=== PATIENT | male | born 1965 | race Caucasian/White ===

== ENCOUNTER 2016-07-12 13:47 | Emergency (ER) | payer SELFPAY ==
[~2016-07-12] VITALS: Ht 185.4 cm; Wt 89.8 kg
[~2016-07-12 13:47] MED LIST: CEPH500C PO; FLC1T PO; HYDROCODONE; LORA2TAB PO; LORAZEPAM; LRZ1T PO; METH4TAB PO; SULF1TAB38 PO; TEMA30CA6 PO
[2016-07-12 14:30] VITALS: BP 145/96
[2016-07-12 14:51] LABS: BILIRUBIN,URINE NEGATIVE (NEGATIVE); KETONES,URINE NEGATIVE (NEGATIVE); LEUKOCYTE ESTERASE ,URINE NEGATIVE (NEGATIVE); NITRITE,URINE NEGATIVE (NEGATIVE); PH,URINE 6 (5-9); PROTEIN,URINE 1+ (NEGATIVE); UROBILINOGEN,URINE NORMAL (NORMAL)
== END 2016-07-12 15:10 | disposition left against medical advice (07) ==
LOC: EDUNIT# 13:47 → ER 13:50
DX: M54.5 Low back pain (principal); Z53.9 Procedure and treatment not carried out, unspecified reason
CPT/HCPCS: 80306; 81000; 99282

== ENCOUNTER 2016-08-18 22:22 | Emergency (ER) | payer SELFPAY ==
[~2016-08-18] VITALS: Ht 182.9 cm; Wt 89.8 kg
[2016-08-18 22:40] LABS: BASOPHILS # (AUTO) 0.1 10^3/uL (0.0-0.1); BASOPHILS % (AUTO) 1 % (0-10); EOSINOPHILS # (AUTO) 0.1 10^3/uL (0.0-0.3); EOSINOPHILS % (AUTO) 1 % (0-10); LYMPHOCYTES # (AUTO) 3.4 X 10^3 (1.0-4.0); LYMPHOCYTES % (AUTO) 52 % (12-44); MEAN CORPUSCULAR HEMOGLOBIN 31 PG (25-34); MEAN CORPUSCULAR HGB CONC 34 G/DL (32-36); MEAN CORPUSCULAR VOLUME 92 FL (80-99); MONOCYTES # (AUTO) 0.5 X 10^3 (0.0-1.0); MONOCYTES % (AUTO) 8 % (0-12); NEUTROPHILS # (AUTO) 2.5 X 10^3 (1.8-7.8); NEUTROPHILS % (AUTO) 38 % (42-75); PLATELET COUNT 124 10^3/uL (130-400); RED BLOOD COUNT 4.85 10^6/uL (4.35-5.85); RED CELL DISTRIBUTION WIDTH 12.9 % (10.0-14.5); WHITE BLOOD COUNT 6.5 10^3/uL (4.3-11.0)
[2016-08-18 22:50] LABS: BILIRUBIN,URINE NEGATIVE (NEGATIVE); KETONES,URINE NEGATIVE (NEGATIVE); LEUKOCYTE ESTERASE ,URINE NEGATIVE (NEGATIVE); NITRITE,URINE NEGATIVE (NEGATIVE); PH,URINE 7 (5-9); PROTEIN,URINE 1+ (NEGATIVE); UROBILINOGEN,URINE NORMAL (NORMAL)
[2016-08-18 22:57] LABS: SQUAMOUS EPITHELIAL CELL,UR RARE /HPF; WBC,URINE RARE /HPF
[2016-08-18 23:02] LABS: ALANINE AMINOTRANSFERASE 56 U/L (0-55); ALBUMIN 4.4 G/DL (3.2-4.5); AMYLASE 37 U/L (25-125); ANION GAP 17 MMOL/L (5-14); ASPARTATE AMINO TRANSFERASE 75 U/L (5-34); BILIRUBIN,TOTAL 0.5 MG/DL (0.1-1.0); BLOOD UREA NITROGEN 8 MG/DL (7-18); BUN/CREATININE RATIO 9; CARBON DIOXIDE 20 MMOL/L (21-32); CHLORIDE 105 MMOL/L (98-107); CREATININE SERUM 0.93 MG/DL (0.60-1.30); GFR ESTIMATED > 60; GLUCOSE 143 MG/DL (70-105); LIPASE 11 U/L (8-78); POTASSIUM 3.4 MMOL/L (3.6-5.0); SODIUM 142 MMOL/L (135-145); TOTAL PROTEIN 7.7 G/DL (6.4-8.2)
[2016-08-18 23:05] LABS: ALCOHOL 490 MG/DL (<10)
[2016-08-19] MEDS ORDERED: OMEP20TA7 PO (01:09)
--- NOTE | 2016-08-19 01:09 | ED Abdominal Pain ---
General Chief Complaint: Abdominal/GI Problems Stated Complaint: ABD PAIN Nursing Triage Note: PT ARRIVED BY EMS. PT COMPLAINS OF RIGHT UPPER QUADRANT PAIN. PT IS INTOXICATED. Sepsis Screen: No Definite Risk Source of Information: Patient, EMS Exam Limitations: Intoxication History of Present Illness Time Seen By Provider: 22:25 Initial Comments This 50-year-old gentleman presents to the emergency room via EMS with complaints of right upper quadrant pain. He admits to drinking a large amount of alcohol and appears acutely intoxicated. He drinks whenever he can obtain alcohol. This is usually daily. EMS reports oxygen saturation was 91 percent on room air so they applied some O2 by nasal cannula. He reports pain was 10 out of 10 initially. He has no significant tenderness on exam and does not appear in pain at this time. He reports to me "I have to be alone to feel the pain". He reports his right upper quadrant pain is actually chronic but has worsened over the past few days. Patient reportedly has cirrhosis. Allergies and Home Medications Allergies Coded Allergies: NKANo Known Allergies (Unverified Allergy, Mild, 04/20/09) Home Medications Omeprazole 20 Mg Tablet.dr, 20 MG PO DAILY, #30 Prescribed by: FRANCY MICHELLE on 08/19/16 0109 Review of Systems Constitutional: see HPI EENTM: No Symptoms Reported Respiratory: No Symptoms Reported Cardiovascular: No Symptoms Reported Gastrointestinal: See HPI Genitourinary: No Symptoms Reported Musculoskeletal: no symptoms reported Skin: no symptoms reported Psychiatric/Neurological: No Symptoms Reported Endocrine: No Symptoms Reported Past Jsouywz-Ejawph-Xodaqg Hx Patient Social History Alcohol Use: Regular Use Recreational Drug Use: Yes (ETOH) Smoking Status: Never a Smoker 2nd Hand Smoke Exposure: No Recent Foreign Travel: No Contact w/Someone Who Travel: No Recent Infectious Disease Expo: No Recent Hopitalizations: No Immunizations Up To Date Tetanus Booster (TDap): Unknown Date of Influenza Vaccine: Jan 17, 2016 Seasonal Allergies Seasonal Allergies: No Surgeries HX Surgeries: No Respiratory Hx Respiratory Disorders: No Cardiovascular Hx Cardiac Disorders: Yes (UNDIAGNOSED HYPERTENSION) Cardiac Disorders: Hypertension Neurological Hx Neurological Disorders: No Reproductive System Hx Reproductive Disorders: No Genitourinary Hx Genitourinary Disorders: No Gastrointestinal Hx Gastrointestinal Disorders: Yes Gastrointestinal Disorders: Hepatitis, Cirrhosis Musculoskeletal Hx Musculoskeletal Disorders: Yes (rt knee injury; effecting gait) Endocrine Hx Endocrine Disorders: No HEENT HX ENT Disorders: No Cancer Hx Cancer: No Psychosocial Hx Psychiatric Problems: Yes Behavioral Health Disorders: Anxiety Integumentary HX Skin/Integumentary Disorder: No Blood Transfusions Hx Blood Disorders: No Physical Exam Vital Signs VS - Last 72 Hours, by Label 08/18/16 08/19/16 22:22 01:40 Temp 99.0 99.0 Pulse 113 113 Resp 20 20 B/P (MAP) 126/79 Pulse Ox 96 96 O2 Delivery Nasal Cannula Room Air O2 Flow Rate 2.00 2.00 Capillary Refill : Less Than 3 Seconds General Appearance: WD/WN, no apparent distress, other (appears intoxicated) HEENT: PERRL/EOMI, normal ENT inspection, pharynx normal Neck: normal inspection Respiratory: lungs clear, normal breath sounds, no respiratory distress, no accessory muscle use Cardiovascular: regular rate, rhythm, no edema, no murmur Gastrointestinal: normal bowel sounds, soft, tenderness (minimal on the right upper quadrant) Extremities: normal inspection, no pedal edema Back: normal inspection 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, no motor/sensory deficits, alert, normal mood/affect, oriented x 3 Skin: normal color, warm/dry Progress/Results/Core Measures Results/Orders Lab Results Laboratory Tests Test 08/18/16 22:28 08/18/16 22:45 Range/Units White Blood Count 6.5 4.3-11.0 10^3/uL Red Blood Count 4.85 4.35-5.85 10^6/uL Hemoglobin 15.2 13.3-17.7 G/DL Hematocrit 45 40-54 % Mean Corpuscular Volume 92 80-99 FL Mean Corpuscular Hemoglobin 31 25-34 PG Mean Corpuscular Hemoglobin Concent 34 32-36 G/DL Red Cell Distribution Width 12.9 10.0-14.5 % Platelet Count 124 L 130-400 10^3/uL Mean Platelet Volume 9.0 7.4-10.4 FL Neutrophils (%) (Auto) 38 L 42-75 % Lymphocytes (%) (Auto) 52 H 12-44 % Monocytes (%) (Auto) 8 0-12 % Eosinophils (%) (Auto) 1 0-10 % Basophils (%) (Auto) 1 0-10 % Neutrophils # (Auto) 2.5 1.8-7.8 X 10^3 Lymphocytes # (Auto) 3.4 1.0-4.0 X 10^3 Monocytes # (Auto) 0.5 0.0-1.0 X 10^3 Eosinophils # (Auto) 0.1 0.0-0.3 10^3/uL Basophils # (Auto) 0.1 0.0-0.1 10^3/uL Sodium Level 142 135-145 MMOL/L Potassium Level 3.4 L 3.6-5.0 MMOL/L Chloride Level 105 98-107 MMOL/L Carbon Dioxide Level 20 L 21-32 MMOL/L Anion Gap 17 H 5-14 MMOL/L Blood Urea Nitrogen 8 7-18 MG/DL Creatinine 0.93 0.60-1.30 MG/DL Estimat Glomerular Filtration Rate > 60 BUN/Creatinine Ratio 9 Glucose Level 143 H 70-105 MG/DL Calcium Level 9.0 8.5-10.1 MG/DL Total Bilirubin 0.5 0.1-1.0 MG/DL Aspartate Amino Transf (AST/SGOT) 75 H 5-34 U/L Alanine Aminotransferase (ALT/SGPT) 56 H 0-55 U/L Alkaline Phosphatase 64 40-136 U/L Total Protein 7.7 6.4-8.2 G/DL Albumin 4.4 3.2-4.5 G/DL Amylase Level 37 25-125 U/L Lipase 11 8-78 U/L Serum Alcohol 490 *H <10 MG/DL Urine Color YELLOW Urine Clarity CLEAR Urine pH 7 5-9 Urine Specific [place] 1.005 L 1.016-1.022 Urine Protein 1+ H NEGATIVE Urine Glucose (UA) 1+ H NEGATIVE Urine Ketones NEGATIVE NEGATIVE Urine Nitrite NEGATIVE NEGATIVE Urine Bilirubin NEGATIVE NEGATIVE Urine Urobilinogen NORMAL NORMAL MG/DL Urine Leukocyte Esterase NEGATIVE NEGATIVE Urine RBC (Auto) NEGATIVE NEGATIVE Urine RBC NONE /HPF Urine WBC RARE /HPF Urine Squamous Epithelial Cells RARE /HPF Urine Crystals NONE /LPF Urine Bacteria NEGATIVE /HPF Urine Casts NONE /LPF Urine Mucus NEGATIVE /LPF Urine Culture Indicated NO My Orders Orders - FRANCY BOYLE MD Alcohol (08/18/16 22:34) Cbc With Automated Diff (08/18/16 22:34) Comprehensive Metabolic Panel (08/18/16 22:34) Lipase (08/18/16 22:34) Ua Culture If Indicated (08/18/16 22:34) Saline Lock/Iv-Start (08/18/16 22:34) Chest 1 View, Ap/Pa Only (08/18/16 22:34) Amylase (08/18/16 22:34) Us Gallbladder [id number] (08/18/16 22:54) Vital Signs/I&O Vital Sign - Last 12Hours 08/18/16 08/19/16 22:22 01:40 Temp 99.0 99.0 Pulse 113 113 Resp 20 20 B/P (MAP) 126/79 Pulse Ox 96 96 O2 Delivery Nasal Cannula Room Air O2 Flow Rate 2.00 2.00 Blood Pressure Mean: 95 Progress Note : Progress Note Patient received a liter of IV fluids. Right upper quadrant pain improved by the time of dismissal. No particular treatment was provided. Workup was relatively unremarkable including ultrasound of the gallbladder. Patient was dismissed and sent home via taxicab. He was able to demonstrate safe ambulation prior to dismissal. Diagnostic Imaging Diagonstic Imaging: Ultrasound Plain Films/CT/US/NM/MRI: abdomen Comments Gallbladder ultrasound was unremarkable. Discussed with the pilot plant technician and stat rad report reviewed. Departure Impression Impression: Primary Impression: Alcohol intoxication Qualified Codes: F10.929 - Alcohol use, unspecified with intoxication, unspecified Additional Impression: Right upper quadrant pain Disposition: 01 HOME, SELF-CARE Condition: Improved Departure-Patient Inst. Decision time for Depature: 01:06 Referrals: KEVYN URBANO MD (PCP/Family) Primary Care Physician Patient Instructions: Acute Abdomen (Belly Pain), Adult (DC), Alcohol Abuse and Alcoholism (DC) Add. Discharge Instructions: Drink plenty of water. Follow-up with your doctor as soon as possible. Gradually reduce your consumption of alcohol and follow-up with your primary care provider to work on quitting alcohol. Take omeprazole as prescribed. Return to the ER if you have worsening symptoms. All discharge instructions reviewed with patient and/or family. Voiced understanding. Scripts Omeprazole (Omeprazole) 20 Mg Tablet. 20 MG PO DAILY, #30 TAB Prov: FRANCY BOYLE MD 08/19/16 Copy Copies To 1: KEVYN URBANO MD, JOSHUA T MD Aug 19, 2016 01:09
[2016-08-19 01:40] VITALS: BP 126/79
--- NOTE | 2016-08-19 06:32 | Diagnostic Imaging Report ---
PROCEDURE: US Gallbladder. TECHNIQUE: Multiple real-time grayscale images were obtained over the right upper quadrant in various projections. INDICATION: Right flank pain. FINDINGS: The liver is normal in size without focal lesions. There is no biliary duct dilatation. The common bile duct is, however, obscured. There is no cholelithiasis, gallbladder wall thickening or pericholecystic fluid. Pancreas not well-seen due to bowel gas. Right kidney is normal. There is no ascites. IMPRESSION: Unremarkable gallbladder. The common bile duct is obscured as is the pancreas by bowel gas. Dictated by: Dictated on workstation # [id number]
--- NOTE | 2016-08-19 08:47 | Diagnostic Imaging Report ---
INDICATION: Right upper quadrant pain. Comparison made with prior examination from 02/06/16. FINDINGS: The heart size, mediastinal configuration, and pulmonary vascularity are within normal limits. There is no pleural effusion, pneumothorax, or pneumonia. The osseous structures are unremarkable. IMPRESSION: No acute cardiopulmonary abnormality. Dictated by: Dictated on workstation # [id number]
== END 2016-08-19 01:40 | disposition home or self-care (01) ==
LOC: EDUNIT# 22:22 → ER 22:24
DX: R10.11 Right upper quadrant pain (principal); F10.129 Alcohol abuse with intoxication, unspecified
CPT/HCPCS: 36415; 71010; 76705; 80053; 80320; 81000; 82150; 83690; 85025

== ENCOUNTER 2018-01-21 15:18 | Inpatient (IN) | payer SELFPAY ==
[~2018-01-21] VITALS: Ht 188 cm; Wt 90.7 kg
[~2018-01-21 15:18] MED LIST changes: +OMEP20TA7 PO
[2018-01-21] MEDS ORDERED: LACTATED RINGERS 1,000 ML IV ONE ×3 (15:27→15:29)
--- OUTSIDE RECORDS SUMMARY | 2018-01-21 15:28 | XMS REPORT ---
Author Author MELQUIADES HARRIS Organization [facility] Address [address] [place] [address] Care Team Providers Care Lotus Notes Developer Name Role Phone MELQUIADES HARRIS Unavailable PROBLEMS Type Condition ICD9-CM Code PGA42-QV Code Onset Dates Condition Status SNOMED Code Problem Insomnia, unspecified type G47.00 Active [id number] ALLERGIES No Known Allergies ENCOUNTERS Encounter Location Date Diagnosis [facility] [address] [address] Oct, Insomnia, unspecified type G47.00 and Right shoulder pain, unspecified chronicity M25.511 [facility] [address] [address] Jan, [facility] [address] [address] Jan, [facility] [address] [address] Dec, Cirrhosis with alcoholism K70.30 and Anxiety F41.9 [place] [address] [address] Jun, [facility] [address] [address] Jun, [facility] [address] [address] Jun, [facility] [address] [address] July, [facility] [address] [address] Jun, [facility] [address] [place] [address] Mar, [facility] [address] [address] Mar, [facility] [id number] [address] Jan, [facility] [address] [address] Jan, [facility] [address] [address] Dec, [facility] [address] [address] Feb, [facility] [address] [address] Feb, [facility] [address] [address] Jan, [facility] [address] [address] July, [facility] [address] [address] Jun, IMMUNIZATIONS No Known Immunizations SOCIAL HISTORY Never Assessed REASON FOR VISIT Pain (acute)shoulder, PT reports his shoulder has been on/off hurting for the last 3-4 weeks ago. -[facility] [place] PLAN OF CARE Activity Details Follow Up 1 Week Reason: VITAL SIGNS Height 73 in 2017-10-30 Weight 195.5 lbs 2017-10-30 Temperature 98.2 degrees Fahrenheit 2017-10-30 Heart Rate 105 bpm 2017-10-30 Respiratory Rate 20 2017-10-30 Oximetry 98 % 2017-10-30 BMI 25.79 kg/m2 2017-10-30 Blood pressure systolic 138 mmHg 2017-10-30 Blood pressure diastolic 88 mmHg 2017-10-30 MEDICATIONS Medication Instructions Dosage Frequency Start Date End Date Duration Status PredniSONE 20 mg Orally Once a day 2 tablets 24h 05 days Active RESULTS No Results PROCEDURES No Known procedures INSTRUCTIONS MEDICATIONS ADMINISTERED No Known Medications MEDICAL (GENERAL) HISTORY Type Description Date Medical History [facility] Medical History anxiety Hospitalization History detox
[2018-01-21] MEDS ORDERED: ONDANSETRON 4 MG/2 ML (SDV) Z0FRAN ONE (15:29)
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
[2018-01-21] MEDS ORDERED: ONDANSETRON 4 MG/2 ML (SDV) Z0FRAN IV PRN ×3 (15:30→20:15)
[2018-01-21] MEDS ORDERED: PIPERACILLIN SODIUM/TAZOBACTAM 4.5 GM in NS (IVPB) 100 ML IV ONE (15:30)
--- NOTE | 2018-01-21 15:37 | ED GI ---
General Stated Complaint: N/V Source of Information: Patient, EMS Exam Limitations: No Limitations History of Present Illness Date Seen by Provider: Jan 21, 2018 Time Seen by Provider: 15:25 Initial Comments The patient presents to ER by private conveyance with chief complaint that he is having some nausea vomiting without abdominal pain started this morning. He' s not had any fevers or chills sweats chest pain or shortness of breath. He does not have any known medical history. He says he was told by his doctor that he might have some kind of cirrhotic hepatitis but denies a known history of viral hepatitis. He has a long-standing history of drinking alcohol he says about 12 beers today. Today he tried to have 2 beers and vomited them both up. His family is concerned that this is more than just a stomach bug so they called EMS. Patient denies headache, rash, recent camping or drinking from unsafe water sources or travel outside the [facility]. He's never had a test for viral hepatitis. 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 He says he used the meth over a year ago but never shot up always smoked. He has also stopped using marijuana over a year ago. He had one soft stool this morning but no diarrhea or constipation. Allergies and Home Medications Allergies Coded Allergies: NKANo Known Allergies (Unverified Allergy, Mild, 04/20/09) Home Medications Omeprazole 20 Mg Tablet.dr, 20 MG PO DAILY Prescribed by: FRANCY MICHELLE on 08/19/16 0109 Patient Home Medication List Home Medication List Reviewed: Yes Review of Systems Review of Systems Constitutional: No chills, No diaphoresis EENTM: No Blurred Vision, No Double Vision Respiratory: Denies Cough, Denies Shortness of Air Cardiovascular: Denies Chest Pain, Denies Edema Gastrointestinal: Denies Abdomen Distended, Denies Abdominal Pain, Denies Constipated, Denies Diarrhea; Nausea, Poor Fluid Intake, Vomiting Genitourinary: Denies Burning, Denies Discharge Past Mfjvskd-Fopstz-Jmmjtg Hx Patient Social History Alcohol Use: Regular Use Alcohol Beverage of Choice: Beer (12 pack per day), Whiskey (occasional) Recreational Drug Use: No (historically) Drug of Choice: historical use of smoking meth and marijuana over a year ago Smoking Status: Current Everyday Smoker Type Used: Cigarettes 2nd Hand Smoke Exposure: No Recent Hopitalizations: No Immunizations Up To Date Tetanus Booster (TDap): Unknown Date of Influenza Vaccine: Jan 17, 2016 Seasonal Allergies Seasonal Allergies: No Past Medical History Surgeries: No Respiratory: No Cardiac: Yes (UNDIAGNOSED HYPERTENSION) Hypertension Neurological: No Reproductive Disorders: No Gastrointestinal: Yes Hepatitis, Cirrhosis Musculoskeletal: Yes (rt knee injury; effecting gait) Endocrine: No HEENT: No Cancer: No Psychosocial: Yes Anxiety Integumentary: No Blood Disorders: No Physical Exam Vital Signs Vital Signs - First Documented 01/21/18 15:22 Temp 96.0 Pulse 108 Resp 20 B/P (MAP) 162/93 (116) Pulse Ox 98 O2 Delivery Room Air Capillary Refill : Height/Weight/BMI Height: 6'0" Weight: 198lbs. 0.0oz. 89.885287qg; 26.4 BMI Method:Stated General Appearance: mild distress, other (disheveled) HEENT: PERRL/EOMI, normal ENT inspection; No pharynx normal (oropharynx is dry) Respiratory: chest non-tender, lungs clear, normal breath sounds, no respiratory distress, no accessory muscle use Cardiovascular: normal peripheral pulses, regular rate, rhythm, no edema, tachycardia Peripheral Pulses: 2+ Radial Pulses (R), 2+ Radial Pulses (L) Gastrointestinal: normal bowel sounds, non tender, soft, no organomegaly Extremities: normal range of motion, non-tender, normal inspection, normal capillary refill Neurologic/Psychiatric: alert, oriented x 3, other (mild somnolence, difficulty keeping his eyes open while talking.) Skin: normal color, warm/dry Focused Exam Sepsis Stage: Severe Sepsis Possible Source: GI Tract/Intra-Abdominal Lactate Level 01/21/18 15:42: Lactic Acid Level 7.04*H 01/21/18 17:50: Lactic Acid Level 4.14*H Time of Focused Exam: 18:57 Respiratory: Chest Non Tender, Lungs Clear, Normal Breath Sounds, No Accessory Muscle Use, No Respiratory Distress Cardiovascular: Regular Rate, Rhythm, No Edema, Normal Peripheral Pulses Capillary Refill: Less Than 3 Seconds Peripheral Pulses: 2+ Radial Pulses (R), 2+ Radial Pulses (L) Skin: normal color, warm/dry Lactic Acid Level Laboratory Tests Test 01/21/18 15:42 01/21/18 17:50 Lactic Acid Level 7.04 MMOL/L (0.50-2.00) *H 4.14 MMOL/L (0.50-2.00) *H Within 3hrs of presentation: Admin fluids, Admin ABX, Blood cultures prior to ABX's, Focus exam, Lactate level Progress/Results/Core Measures Results/Orders Lab Results Laboratory Tests Test 01/21/18 15:42 01/21/18 16:50 01/21/18 17:50 Range/Units White Blood Count 6.9 4.3-11.0 10^3/uL Red Blood Count 4.71 4.35-5.85 10^6/uL Hemoglobin 14.6 13.3-17.7 G/DL Hematocrit 43 40-54 % Mean Corpuscular Volume 92 80-99 FL Mean Corpuscular Hemoglobin 31 25-34 PG Mean Corpuscular Hemoglobin Concent 34 32-36 G/DL Red Cell Distribution Width 12.9 10.0-14.5 % Platelet Count 100 L 130-400 10^3/uL Mean Platelet Volume 9.3 7.4-10.4 FL Neutrophils (%) (Auto) 86 H 42-75 % Lymphocytes (%) (Auto) 11 L 12-44 % Monocytes (%) (Auto) 3 0-12 % Eosinophils (%) (Auto) 0 0-10 % Basophils (%) (Auto) 0 0-10 % Neutrophils # (Auto) 5.9 1.8-7.8 X 10^3 Lymphocytes # (Auto) 0.8 L 1.0-4.0 X 10^3 Monocytes # (Auto) 0.2 0.0-1.0 X 10^3 Eosinophils # (Auto) 0.0 0.0-0.3 10^3/uL Basophils # (Auto) 0.0 0.0-0.1 10^3/uL Prothrombin Time 13.0 12.2-14.7 SEC INR Comment 1.0 0.8-1.4 Activated Partial Thromboplast Time 24 24-35 SEC Sodium Level 140 135-145 MMOL/L Potassium Level 3.3 L 3.6-5.0 MMOL/L Chloride Level 97 L 98-107 MMOL/L Carbon Dioxide Level 20 L 21-32 MMOL/L Anion Gap 23 H 5-14 MMOL/L Blood Urea Nitrogen 9 7-18 MG/DL Creatinine 0.88 0.60-1.30 MG/DL Estimat Glomerular Filtration Rate > 60 BUN/Creatinine Ratio 10 Glucose Level 144 H 70-105 MG/DL Lactic Acid Level 7.04 *H 4.14 *H 0.50-2.00 MMOL/L Calcium Level 9.9 8.5-10.1 MG/DL Corrected Calcium 8.5-10.1 MG/DL Total Bilirubin 1.3 H 0.1-1.0 MG/DL Aspartate Amino Transf (AST/SGOT) 122 H 5-34 U/L Alanine Aminotransferase (ALT/SGPT) 91 H 0-55 U/L Alkaline Phosphatase 61 40-136 U/L Ammonia 28 11-32 UMOL/L Total Protein 8.4 H 6.4-8.2 GM/DL Albumin 4.7 H 3.2-4.5 GM/DL Urine Color YELLOW Urine Clarity CLEAR Urine pH 8 5-9 Urine Specific [place] 1.015 L 1.016-1.022 Urine Protein 1+ H NEGATIVE Urine Glucose (UA) 2+ H NEGATIVE Urine Ketones 3+ H NEGATIVE Urine Nitrite NEGATIVE NEGATIVE Urine Bilirubin NEGATIVE NEGATIVE Urine Urobilinogen NORMAL NORMAL MG/DL Urine Leukocyte Esterase NEGATIVE NEGATIVE Urine RBC (Auto) NEGATIVE NEGATIVE Urine RBC NONE /HPF Urine WBC NONE /HPF Urine Squamous Epithelial Cells RARE /HPF Urine Crystals NONE /LPF Urine Bacteria NONE /HPF Urine Casts NONE /LPF Urine Mucus NEGATIVE /LPF Urine Culture Indicated NO Serum Alcohol 11 H <10 MG/DL My Orders Orders - MAXINE WEBER Cbc With Automated Diff (01/21/18 15:27) Comprehensive Metabolic Panel (01/21/18 15:27) Blood Culture (01/21/18 15:27) Sputum Culture (01/21/18 15:27) Urinalysis (01/21/18 15:27) Urine Culture (01/21/18 15:27) Protime With Inr (01/21/18 15:27) Partial Thromboplastin Time (01/21/18 15:27) Chest 1 View, Ap/Pa Only (01/21/18 15:27) Saline Lock/Iv-Start (01/21/18 15:27) Saline Lock/Iv-Start (01/21/18 15:27) Vital Signs Adult Sepsis Patie Q15M (01/21/18 15:27) Ondansetron Injection (Zofran Injectio (01/21/18 15:30) O2 (01/21/18 15:27) Remove Rings In Anticipation O (01/21/18 15:27) Lactic Acid Analyzer (01/21/18 15:27) Lactated Ringers (Lr 1000 Ml Iv Solution (01/21/18 15:27) Piperacillin Sodium/Tazobactam (Zosyn Vi (01/21/18 15:30) Saline Lock/Iv-Start (01/21/18 15:27) Lactated Ringers (Lr 1000 Ml Iv Solution (01/21/18 15:27) Ondansetron Injection (Zofran Injectio (01/21/18 15:29) Lactated Ringers (Lr 1000 Ml Iv Solution (01/21/18 15:29) Ammonia (01/21/18 15:37) Saline Lock/Iv-Start (01/21/18 16:21) Ns Iv 1000 Ml (Sodium Chloride 0.9%) (01/21/18 16:21) Ct Abdomen/Pelvis W (01/21/18 16:21) Iohexol Injection (Omnipaque 350 Mg/Ml 1 (01/21/18 17:00) Contrast Received (Contrast Received) (01/21/18 17:00) Ns (Ivpb) (Sodium Chloride 0.9%) (01/21/18 17:00) Lorazepam Injection (Ativan Injection) (01/21/18 17:30) Alcohol (01/21/18 17:22) Medications Given in ED Current Medications Medications Dose Ordered Sig/Nan Route Start Time Stop Time Status Last Admin Dose Admin Iohexol 100 ml ONCE ONCE IV 01/21/18 17:00 01/21/18 17:05 DC 01/21/18 17:30 100 ML Lactated Ringer's 1,000 ml @ 0 mls/hr Q0M ONCE IV 01/21/18 15:27 01/21/18 15:31 DC 01/21/18 15:36 1,000 MLS/HR Lactated Ringer's 1,000 ml @ 0 mls/hr Q0M ONCE IV 01/21/18 15:27 01/21/18 15:31 DC 01/21/18 16:48 1,000 MLS/HR Ondansetron HCl 8 mg PRN PRN IV 01/21/18 15:30 01/21/18 15:37 DC 01/21/18 15:36 8 MG Piperacillin Sod/ Tazobactam Sod 4.5 gm/Sodium Chloride 100 ml @ 200 mls/hr ONCE ONCE IV 01/21/18 15:30 01/21/18 15:59 DC 01/21/18 16:48 200 MLS/HR Sodium Chloride 250 ml ONCE ONCE IV 01/21/18 17:00 01/21/18 17:05 DC 01/21/18 17:31 80 ML Vital Signs/I&O 01/21/18 01/21/18 01/21/18 15:22 15:23 16:50 Temp 96.0 Pulse 108 81 Resp 20 22 B/P (MAP) 162/93 (116) 149/76 Pulse Ox 98 98 O2 Delivery Room Air Room Air Room Air Progress Progress Note #1: Time: 15:36 Progress Note Septic workup this is tachycardic and nausea vomiting suspect GI source. We will use Zosyn, 2 L of fluid which would be greater than 20 mL/kg based on his weight of 198 pounds. Zofran 8 mg. Vomited once in the ER so far. We'll check an ammonia as well as his CMP. Progress Note #2: Time: 16:22 Progress Note Markedly elevated lactate with normal creatinine. Suspect there could be an infectious or ischemic process abdomen. He still has a benign nonsurgical abdomen on examination. We'll going get a CT with contrast since his creatinine 0.8. We have him another liter of saline which would bring him up above 30 mL/ kg. Blood pressure is good in the 160/94 range. The nurse informs me that the lactated Ringer's was not started until after he already drawn the blood cultures and lactic acid. Diagnostic Imaging Diagonstic Imaging: CT (c/c) Plain Films/CT/US/NM/MRI: abdomen, pelvis Comments NAME: PARMINDERAUDRA Olguin [facility] REC#: [id number] PHYSICIAN: MAXINE WEBER MD CC: BRIAN JONAS MD; MAXINE WEBER Page 2 of 2 RADIOLOGY REPORT VIA [facility], [facility]. [place], [place] CC: BRIAN JONAS MD; MAXINE WEBER Page 1 of 2 RADIOLOGY REPORT NAME: AUDRA ZURITA [facility] REC#: [id number] PT STATUS: REG ER : 1965 PHYSICIAN: MAXINE WEBER MD ADMIT DATE: 01/21/18/ER Signed Date of Exam: 01/21/18 CT ABDOMEN/PELVIS W PROCEDURE: CT abdomen and pelvis with contrast. TECHNIQUE: Multiple contiguous axial images were obtained through the abdomen and pelvis after administration of intravenous contrast. INDICATION: Possible detoxing; abdominal pain, nausea, and vomiting starting today. COMPARISON STUDIES: CT of the abdomen and pelvis from 2015. FINDINGS: The lung bases are clear. Fatty metamorphosis of the liver is present with no focal abnormalities. The gallbladder, spleen, pancreas, adrenal glands, and kidneys appear normal. Benign calcifications are present in the prostate gland. Mild thickening of the urinary bladder wall is present. This could be from cystitis or outlet obstruction. Moderate amount of stool is present in the colon. No obstruction is seen. A few diverticula are present without inflammation. The appendix and small bowel loops are normal. There is no ascites, free air, or abnormal adenopathy. Vascular structures are normal. The osseous structures demonstrate mild degenerative changes. No fractures are present. IMPRESSION: 1. There is fatty metamorphosis of the liver. 2. Diverticulosis without inflammation. 3. Possible constipation. 4. There is mild thickening of the urinary bladder guzman, and this could be due to chronic outlet obstruction versus cystitis. Dictated by: Dictated on workstation # [id number] Dict: 01/21/181746 Trans: 01/21/181813 Interpreted by: BRIAN JONAS MD Electronically signed by: BRIAN JONAS MD 01/21/181813 Reviewed: Reviewed by Me Diagonstic Imaging: Xray Plain Films/CT/US/NM/MRI: chest (1v) Comments NAME: ZURITAAUDRA CLEMENTS Clua [facility] REC#: [id number] PHYSICIAN: MAXINE WEBER MD CC: ANGELI LEON MD; MAXINE WEBER Page 1 of 1 RADIOLOGY REPORT VIA [place], [place] CC: ANGELI LEON MD; MAXINE WEBER Page 1 of 1 RADIOLOGY REPORT NAME: AUDRA ZURITA [facility] REC#: [id number] PT STATUS: REG ER : 1965 PHYSICIAN: MAXINE WEBER MD ADMIT DATE: 01/21/18/ER Signed Date of Exam: 01/21/18 CHEST 1 VIEW, AP/PA ONLY INDICATION: Nausea and vomiting. EXAMINATION: Portable chest at 4:12 PM. FINDINGS: The heart size and pulmonary vascularity are normal. The lungs are clear. There are no effusions or pneumothoraces. IMPRESSION: Negative chest. Dictated by: Dictated on workstation # [id number] Dict: 01/21/18 1615 Trans: 01/21/18 1656 Interpreted by: ANGELI LEON MD Electronically signed by: ANGELI LEON MD 01/21/18 1656 Reviewed: Reviewed by Me Departure Communication (Admissions) Time/Spoke to Admitting Phy: 18:45 Discussed case lab imaging findings with Dr. Huertas and she agrees take patient to the unit for alcohol withdrawal, severe sepsis and dehydration and gastroenteritis. Impression Primary Impression: Alcohol withdrawal Qualified Codes: F10.230 - Alcohol dependence with withdrawal, uncomplicated Additional Impressions: Severe sepsis Dehydration Gastroenteritis Electrolyte and fluid disorder Disposition: ADMITTED INPATIENT Condition: Stable Admissions Decision to Admit Reason: Admit from ER (General) Decision to Admit/Date: Jan 21, 2018 Time/Decision to Admit Time: 18:48 Departure-Patient Inst. Referrals: KEVYN URBANO MD (PCP/Family) Primary Care Physician MAXINE WEBER Jan 21, 2018 15:37
[2018-01-21 15:56] LABS: BASOPHILS % (AUTO) 0 % (0-10); EOSINOPHILS % (AUTO) 0 % (0-10); HEMATOCRIT 43 % (40-54); HEMOGLOBIN 14.6 G/DL (13.3-17.7); LYMPHOCYTES # (AUTO) 0.8 X 10^3 (1.0-4.0); LYMPHOCYTES % (AUTO) 11 % (12-44); MEAN CORPUSCULAR HEMOGLOBIN 31 PG (25-34); MEAN CORPUSCULAR HGB CONC 34 G/DL (32-36); MEAN CORPUSCULAR VOLUME 92 FL (80-99); MEAN PLATELET VOLUME 9.3 FL (7.4-10.4); MONOCYTES # (AUTO) 0.2 X 10^3 (0.0-1.0); MONOCYTES % (AUTO) 3 % (0-12); NEUTROPHILS # (AUTO) 5.9 X 10^3 (1.8-7.8); NEUTROPHILS % (AUTO) 86 % (42-75); PLATELET COUNT 100 10^3/uL (130-400); RED BLOOD COUNT 4.71 10^6/uL (4.35-5.85); RED CELL DISTRIBUTION WIDTH 12.9 % (10.0-14.5); WHITE BLOOD COUNT 6.9 10^3/uL (4.3-11.0)
[2018-01-21 16:16] LABS: ALANINE AMINOTRANSFERASE 91 U/L (0-55); ALBUMIN 4.7 GM/DL (3.2-4.5); ALKALINE PHOSPHATASE 61 U/L (40-136); AMMONIA 28 UMOL/L (11-32); BILIRUBIN,TOTAL 1.3 MG/DL (0.1-1.0); BUN/CREATININE RATIO 10; CALCIUM 9.9 MG/DL (8.5-10.1); CARBON DIOXIDE 20 MMOL/L (21-32); CHLORIDE 97 MMOL/L (98-107); CREATININE SERUM 0.88 MG/DL (0.60-1.30); GFR ESTIMATED > 60; GLUCOSE 144 MG/DL (70-105); POTASSIUM 3.3 MMOL/L (3.6-5.0); SODIUM 140 MMOL/L (135-145); TOTAL PROTEIN 8.4 GM/DL (6.4-8.2)
--- NOTE | 2018-01-21 16:18 | Diagnostic Imaging Report ---
INDICATION: Nausea and vomiting. EXAMINATION: Portable chest at 4:12 PM. FINDINGS: The heart size and pulmonary vascularity are normal. The lungs are clear. There are no effusions or pneumothoraces. IMPRESSION: Negative chest. Dictated by: Dictated on workstation # [id number]
[2018-01-21] MEDS ORDERED: NS IV 1000 ML 1,000 ML IV SCH ×2 (16:21→20:19)
[2018-01-21 16:55] LABS: BILIRUBIN,URINE NEGATIVE (NEGATIVE); CLARITY,URINE CLEAR; COLOR,URINE YELLOW; GLUCOSE, URINE (UA) 2+ (NEGATIVE); KETONES,URINE 3+ (NEGATIVE); LEUKOCYTE ESTERASE ,URINE NEGATIVE (NEGATIVE); NITRITE,URINE NEGATIVE (NEGATIVE); PH,URINE 8 (5-9); PROTEIN,URINE 1+ (NEGATIVE); UROBILINOGEN,URINE NORMAL (NORMAL)
[2018-01-21] MEDS ORDERED: RECEIVED CONTRAST (Hold Metformin) IV SCH (17:00)
[2018-01-21] MEDS ORDERED: IOHEXOL 350 MG/ML 100 ML (OMNIPAQUE 350) VIAL IV ONE (17:00)
[2018-01-21] MEDS ORDERED: NS 250 ML (IVPB) BAG IV ONE (17:00)
[2018-01-21 17:02] LABS: SQUAMOUS EPITHELIAL CELL,UR RARE /HPF
[2018-01-21] MEDS ORDERED: LORazepam INJ 2 MG/ML (ATIVAN) VIAL IVP ONE (17:30)
--- NOTE | 2018-01-21 17:55 | Diagnostic Imaging Report ---
PROCEDURE: CT abdomen and pelvis with contrast. TECHNIQUE: Multiple contiguous axial images were obtained through the abdomen and pelvis after administration of intravenous contrast. INDICATION: Possible detoxing; abdominal pain, nausea, and vomiting starting today. COMPARISON STUDIES: CT of the abdomen and pelvis from 2015. FINDINGS: The lung bases are clear. Fatty metamorphosis of the liver is present with no focal abnormalities. The gallbladder, spleen, pancreas, adrenal glands, and kidneys appear normal. Benign calcifications are present in the prostate gland. Mild thickening of the urinary bladder wall is present. This could be from cystitis or outlet obstruction. Moderate amount of stool is present in the colon. No obstruction is seen. A few diverticula are present without inflammation. The appendix and small bowel loops are normal. There is no ascites, free air, or abnormal adenopathy. Vascular structures are normal. The osseous structures demonstrate mild degenerative changes. No fractures are present. IMPRESSION: 1. There is fatty metamorphosis of the liver. 2. Diverticulosis without inflammation. 3. Possible constipation. 4. There is mild thickening of the urinary bladder guzman, and this could be due to chronic outlet obstruction versus cystitis. Dictated by: Dictated on workstation # [id number]
[2018-01-21] MEDS ORDERED: KETOROLAC 30 MG/ML VIAL IVP ONE (19:15)
[2018-01-21 20:00] VITALS: BP_SYST 136; BP_SYST 158; BP_DIAS 75; BP_DIAS 88
[2018-01-21] MEDS ORDERED: NS W/KCL 20 MEQ/L 1,000 ML IV ONE (20:03)
[2018-01-21] MEDS ORDERED: 1/2 NS IV SOLUTION 1,000 ML IV PRN (20:11)
[2018-01-21 20:15] VITALS: BP 136/75
[2018-01-21] MEDS ORDERED: LORazepam INJ 2 MG/ML (ATIVAN) VIAL IM/IV PRN (20:15)
[2018-01-21] MEDS ORDERED: CATHETER FLUSH 10 ML SYR IV PRN (20:15)
[2018-01-21] MEDS ORDERED: [UNRECOGNIZED DRUG - OTHER] IV ONE ×5 (20:15)
[2018-01-21] MEDS ORDERED: ANTACID SUSP 30 ML UDC (MYLANTA) PO PRN (20:15)
[2018-01-21] MEDS ORDERED: FOLIC ACID IV ONE ×5 (20:15)
[2018-01-21] MEDS ORDERED: KETOROLAC 15 MG/ML VIAL IV PRN (20:15)
[2018-01-21] MEDS ORDERED: LORazepam INJ 2 MG/ML (ATIVAN) VIAL IV PRN (20:15)
[2018-01-21] MEDS ORDERED: ONDANSETRON 4 MG (ZOFRAN) ORAL DISSOLVE TAB SL PRN (20:15)
[2018-01-21] MEDS ORDERED: VITAMIN MULTI IV ONE ×5 (20:15)
[2018-01-21] MEDS ORDERED: THIAMINE IV ONE ×5 (20:15)
[2018-01-21] MEDS ORDERED: ACETAMINOPHEN 500 MG TAB (TYLENOL) PO PRN (20:15)
[2018-01-21] MEDS ORDERED: D5 1/2 NS 1000 ML IV SOLUTION 1,000 ML IV PRN (20:15)
[2018-01-21] MEDS ORDERED: SENNA W/DOCUSATE (SENOKOT S) TABLET PO PRN (20:15)
[2018-01-21] MEDS: NOREPINEPHRINE 4 MG in NS (IVPB) 250 ML IV SCH (20:19)
[2018-01-21] MEDS: PIPERACILLIN/TAZO 4.5 GM/NS 100 ML IV SCH ×2 (20:30)
[2018-01-21] MEDS ORDERED: NS IV ONE (20:30)
[2018-01-21 20:45] VITALS: BP 132/81
[2018-01-21 21:00] VITALS: BP 153/81
[2018-01-21] MEDS: FAMOTIDINE 20MG/2ML IV (PEPCID) IV SCH (21:51)
[2018-01-21 22:00] VITALS: BP 129/72
[2018-01-21 23:00] VITALS: BP 110/69
[2018-01-22] VITALS (12 sets, daily range): BP systolic 116–146; BP diastolic 70–99
[2018-01-22 03:53] LABS: BASOPHILS % (AUTO) 0 % (0-10); EOSINOPHILS % (AUTO) 0 % (0-10); HEMATOCRIT 40 % (40-54); HEMOGLOBIN 13.3 G/DL (13.3-17.7); LYMPHOCYTES # (AUTO) 0.9 X 10^3 (1.0-4.0); LYMPHOCYTES % (AUTO) 16 % (12-44); MEAN CORPUSCULAR HEMOGLOBIN 31 PG (25-34); MEAN CORPUSCULAR HGB CONC 33 G/DL (32-36); MEAN CORPUSCULAR VOLUME 93 FL (80-99); MEAN PLATELET VOLUME 10.4 FL (7.4-10.4); MONOCYTES # (AUTO) 0.7 X 10^3 (0.0-1.0); MONOCYTES % (AUTO) 13 % (0-12); NEUTROPHILS # (AUTO) 3.9 X 10^3 (1.8-7.8); NEUTROPHILS % (AUTO) 71 % (42-75); PLATELET COUNT 75 10^3/uL (130-400); RED BLOOD COUNT 4.31 10^6/uL (4.35-5.85); RED CELL DISTRIBUTION WIDTH 12.4 % (10.0-14.5); WHITE BLOOD COUNT 5.5 10^3/uL (4.3-11.0)
[2018-01-22 04:13] LABS: ALANINE AMINOTRANSFERASE 69 U/L (0-55); ALBUMIN 4.1 GM/DL (3.2-4.5); ALKALINE PHOSPHATASE 51 U/L (40-136); BILIRUBIN,TOTAL 1.3 MG/DL (0.1-1.0); BUN/CREATININE RATIO 8; CALCIUM 9.2 MG/DL (8.5-10.1); CARBON DIOXIDE 26 MMOL/L (21-32); CHLORIDE 102 MMOL/L (98-107); CREATININE SERUM 0.85 MG/DL (0.60-1.30); GFR ESTIMATED > 60; GLUCOSE 101 MG/DL (70-105); MAGNESIUM 2.3 MG/DL (1.8-2.4); POTASSIUM 3.3 MMOL/L (3.6-5.0); SODIUM 140 MMOL/L (135-145); TOTAL PROTEIN 7.3 GM/DL (6.4-8.2)
[2018-01-22] MEDS ORDERED: POTASSIUM CL 10MEQ/50ML IVPB 50 ML IV SCH (06:00)
[2018-01-22] MEDS ORDERED: KCL 20 MEQ TAB (K-DUR) PO SCH (06:00)
[2018-01-22] MEDS ORDERED: MAGNESIUM 1 GM/100 ML IVPB 100 ML IV SCH (06:00)
[2018-01-22] MEDS: NS W/KCL 20 MEQ/L 1,000 ML IV SCH ×4 (06:41→16:47)
[2018-01-22] MEDS: PIPERACILLIN/TAZO 4.5 GM/NS 100 ML IV SCH ×6 (06:42→23:55)
[2018-01-22] MEDS: POTASSIUM CL 10MEQ/50ML IVPB 50 ML IV SCH ×4 (06:42→12:59)
[2018-01-22] MEDS ORDERED: FLU QUADRIvalent (5+ YOA) 2018-2019 (AFLURIA) 0.5 ML IM ONE (07:15)
--- NOTE | 2018-01-22 08:21 | Diagnostic Imaging Report ---
INDICATION: Severe sepsis, dehydration and hypokalemia. COMPARISON: 01/21/2018. FINDINGS: Visualized lungs are clear. No pleural effusion or pneumothorax. Heart is normal in size. Normal pulmonary vasculature. IMPRESSION: No acute cardiopulmonary process by portable radiography. Dictated by: Dictated on workstation # [id number]
[2018-01-22] MEDS: NOREPINEPHRINE 4 MG in NS (IVPB) 250 ML IV SCH (08:56)
[2018-01-22] MEDS: LORazepam 1 MG (ATIVAN) TAB PO PRN ×3 (09:23→22:54)
[2018-01-22] MEDS: FAMOTIDINE 20MG/2ML IV (PEPCID) IV SCH ×2 (09:24→21:37)
[2018-01-22] MEDS ORDERED: IBUP-30 PO (09:47)
--- NOTE | 2018-01-22 21:12 | History & Physicial (CHS) ---
HPI History of Present Illness: 52 yo male came to ER after having acute onset of vomiting last night. He has a history of heavy alcohol use and last drink was over 24 hours ago because he vomited when he tried to drink more recently. He denies fever, diarrhea. Date seen by provider: Jan 22, 2018 Time Seen by Provider: 08:00 Attending Physician Froylan Huertas MD PCP To Archibald MD Consult Date of Admission Jan 21, 2018 at 18:45 Home Medications Home Medications Reviewed patient Home Medication Reconciliation performed by pharmacy medication reconciliations sewing pattern layout technician and/or nursing. Patients Allergies have been reviewed. Allergies Coded Allergies: NKANo Known Allergies (Unverified Allergy, Mild, 04/20/09) NIX-Wkytcm-Nbegle Hx Patient Social History Alcohol Use: Occasionally Uses Recreational Drug Use: No Drug of Choice: historical use of smoking meth and marijuana over a year ago Smoking Status: Never a Smoker Type Used: Cigarettes 2nd Hand Smoke Exposure: No Recent Foreign Travel: No Contact w/other who traveled: No Recent Hopitalizations: No Recent Infectious Disease Expo: No Physical Abuse Screen: No Sexual Abuse: No Immunizations Up To Date Tetanus Booster (TDap): Unknown Date of Influenza Vaccine: Jan 17, 2016 Past Medical History Chronic alcohol abuse Insomnia Anxiety Cirrhosis w/ chronic thrombocytopenia PSH: none Family Medical History Significant Family History: No Pertinent Family Hx Review of Systems (CHC) Constitutional: No fever EENTM: nose congestion Respiratory: No cough, No short of breath Cardiovascular: No chest pain Gastrointestinal: see HPI Genitourinary: No dysuria; frequency Skin: no symptoms reported Psychiatric/Neurological: No Symptoms Reported Reviewed Test Results Reviewed Test Results Lab Laboratory Tests Test 01/21/18 15:42 01/21/18 16:50 01/21/18 17:50 01/21/18 20:30 Range/Units White Blood Count 6.9 4.3-11.0 10^3/uL Red Blood Count 4.71 4.35-5.85 10^6/uL Hemoglobin 14.6 13.3-17.7 G/DL Hematocrit 43 40-54 % Mean Corpuscular Volume 92 80-99 FL Mean Corpuscular Hemoglobin 31 25-34 PG Mean Corpuscular Hemoglobin Concent 34 32-36 G/DL Red Cell Distribution Width 12.9 10.0-14.5 % Platelet Count 100 L 130-400 10^3/uL Mean Platelet Volume 9.3 7.4-10.4 FL Neutrophils (%) (Auto) 86 H 42-75 % Lymphocytes (%) (Auto) 11 L 12-44 % Monocytes (%) (Auto) 3 0-12 % Eosinophils (%) (Auto) 0 0-10 % Basophils (%) (Auto) 0 0-10 % Neutrophils # (Auto) 5.9 1.8-7.8 X 10^3 Lymphocytes # (Auto) 0.8 L 1.0-4.0 X 10^3 Monocytes # (Auto) 0.2 0.0-1.0 X 10^3 Eosinophils # (Auto) 0.0 0.0-0.3 10^3/uL Basophils # (Auto) 0.0 0.0-0.1 10^3/uL Prothrombin Time 13.0 12.2-14.7 SEC INR Comment 1.0 0.8-1.4 Activated Partial Thromboplast Time 24 24-35 SEC Sodium Level 140 135-145 MMOL/L Potassium Level 3.3 L 3.6-5.0 MMOL/L Chloride Level 97 L 98-107 MMOL/L Carbon Dioxide Level 20 L 21-32 MMOL/L Anion Gap 23 H 5-14 MMOL/L Blood Urea Nitrogen 9 7-18 MG/DL Creatinine 0.88 0.60-1.30 MG/DL Estimat Glomerular Filtration Rate > 60 BUN/Creatinine Ratio 10 Glucose Level 144 H 70-105 MG/DL Lactic Acid Level 7.04 *H 4.14 *H 1.58 0.50-2.00 MMOL/L Calcium Level 9.9 8.5-10.1 MG/DL Corrected Calcium 8.5-10.1 MG/DL Total Bilirubin 1.3 H 0.1-1.0 MG/DL Aspartate Amino Transf (AST/SGOT) 122 H 5-34 U/L Alanine Aminotransferase (ALT/SGPT) 91 H 0-55 U/L Alkaline Phosphatase 61 40-136 U/L Ammonia 28 11-32 UMOL/L Total Protein 8.4 H 6.4-8.2 GM/DL Albumin 4.7 H 3.2-4.5 GM/DL Urine Color YELLOW Urine Clarity CLEAR Urine pH 8 5-9 Urine Specific [place] 1.015 L 1.016-1.022 Urine Protein 1+ H NEGATIVE Urine Glucose (UA) 2+ H NEGATIVE Urine Ketones 3+ H NEGATIVE Urine Nitrite NEGATIVE NEGATIVE Urine Bilirubin NEGATIVE NEGATIVE Urine Urobilinogen NORMAL NORMAL MG/DL Urine Leukocyte Esterase NEGATIVE NEGATIVE Urine RBC (Auto) NEGATIVE NEGATIVE Urine RBC NONE /HPF Urine WBC NONE /HPF Urine Squamous Epithelial Cells RARE /HPF Urine Crystals NONE /LPF Urine Bacteria NONE /HPF Urine Casts NONE /LPF Urine Mucus NEGATIVE /LPF Urine Culture Indicated NO Serum Alcohol 11 H <10 MG/DL Test 01/22/18 03:00 Range/Units White Blood Count 5.5 4.3-11.0 10^3/uL Red Blood Count 4.31 L 4.35-5.85 10^6/uL Hemoglobin 13.3 13.3-17.7 G/DL Hematocrit 40 40-54 % Mean Corpuscular Volume 93 80-99 FL Mean Corpuscular Hemoglobin 31 25-34 PG Mean Corpuscular Hemoglobin Concent 33 32-36 G/DL Red Cell Distribution Width 12.4 10.0-14.5 % Platelet Count 75 L 130-400 10^3/uL Mean Platelet Volume 10.4 7.4-10.4 FL Neutrophils (%) (Auto) 71 42-75 % Lymphocytes (%) (Auto) 16 12-44 % Monocytes (%) (Auto) 13 H 0-12 % Eosinophils (%) (Auto) 0 0-10 % Basophils (%) (Auto) 0 0-10 % Neutrophils # (Auto) 3.9 1.8-7.8 X 10^3 Lymphocytes # (Auto) 0.9 L 1.0-4.0 X 10^3 Monocytes # (Auto) 0.7 0.0-1.0 X 10^3 Eosinophils # (Auto) 0.0 0.0-0.3 10^3/uL Basophils # (Auto) 0.0 0.0-0.1 10^3/uL Sodium Level 140 135-145 MMOL/L Potassium Level 3.3 L 3.6-5.0 MMOL/L Chloride Level 102 98-107 MMOL/L Carbon Dioxide Level 26 21-32 MMOL/L Anion Gap 12 5-14 MMOL/L Blood Urea Nitrogen 7 7-18 MG/DL Creatinine 0.85 0.60-1.30 MG/DL Estimat Glomerular Filtration Rate > 60 BUN/Creatinine Ratio 8 Glucose Level 101 70-105 MG/DL Calcium Level 9.2 8.5-10.1 MG/DL Corrected Calcium 9.1 8.5-10.1 MG/DL Phosphorus Level 3.0 2.3-4.7 MG/DL Magnesium Level 2.3 1.8-2.4 MG/DL Total Bilirubin 1.3 H 0.1-1.0 MG/DL Aspartate Amino Transf (AST/SGOT) 85 H 5-34 U/L Alanine Aminotransferase (ALT/SGPT) 69 H 0-55 U/L Alkaline Phosphatase 51 40-136 U/L Total Protein 7.3 6.4-8.2 GM/DL Albumin 4.1 3.2-4.5 GM/DL Radiology CXR 01/21: No acute findings CT abd 01/21: IMPRESSION: 1. There is fatty metamorphosis of the liver. 2. Diverticulosis without inflammation. 3. Possible constipation. 4. There is mild thickening of the urinary bladder guzman, and this could be due to chronic outlet obstruction versus cystitis. Physical Exam-(CHC) Physical Exam Vital Signs VS - Last 72 Hours, by Label 01/21/18 01/21/18 01/21/18 01/21/18 15:22 15:23 16:50 18:52 Temp 96.0 98.3 Pulse 108 81 82 Resp 20 22 22 B/P (MAP) 162/93 (116) 149/76 134/76 (95) Pulse Ox 98 98 98 O2 Delivery Room Air Room Air Room Air Room Air 01/21/18 01/21/18 01/21/18 01/21/18 19:00 19:55 20:00 20:00 Temp 99.1 Pulse 98 86 Resp 17 B/P (MAP) 158/88 (111) Pulse Ox 94 94 O2 Delivery Room Air Room Air 01/21/18 01/21/18 01/21/18 01/21/18 20:15 20:30 20:45 21:00 Pulse 89 88 89 75 Resp 21 16 9 44 B/P (MAP) 136/75 (95) 132/81 (98) 153/81 (105) Pulse Ox 97 97 96 94 O2 Delivery Room Air Room Air Room Air Room Air 01/21/18 01/21/18 01/22/18 01/22/18 22:00 23:00 00:00 00:00 Pulse 89 86 82 Resp 14 14 21 B/P (MAP) 129/72 (91) 110/69 (83) 132/88 (103) Pulse Ox 96 95 93 96 O2 Delivery Room Air Room Air Room Air Room Air 01/22/18 01/22/18 01/22/18 01/22/18 00:00 01:00 01:00 02:00 Temp 98.3 Pulse 82 82 87 Resp 25 13 B/P (MAP) 121/71 (88) 116/70 (85) Pulse Ox 97 94 O2 Delivery Room Air Room Air 01/22/18 01/22/18 01/22/18 01/22/18 03:00 04:00 04:00 04:00 Temp 98.8 Pulse 91 74 Resp 15 14 B/P (MAP) 128/72 (90) 141/89 (106) Pulse Ox 95 94 95 O2 Delivery Room Air Room Air Room Air 01/22/18 01/22/18 01/22/18 01/22/18 05:00 06:00 07:00 07:00 Pulse 76 84 82 79 Resp 20 16 12 B/P (MAP) 127/76 (93) 146/93 (110) 136/99 (111) Pulse Ox 95 95 98 O2 Delivery Room Air Room Air Room Air 01/22/18 01/22/18 01/22/18 01/22/18 08:00 08:00 08:00 09:00 Temp 98.0 Pulse 89 96 Resp 16 9 B/P (MAP) 143/92 (109) 117/76 (90) Pulse Ox 98 98 98 O2 Delivery Room Air Room Air Room Air 01/22/18 01/22/18 01/22/18 01/22/18 10:05 12:00 13:00 16:00 Pulse 112 Pulse Ox 98 98 98 O2 Delivery Room Air Room Air Room Air 01/22/18 01/22/18 16:00 19:00 Temp 99.5 Pulse 95 83 Resp 20 B/P (MAP) 146/82 (103) Pulse Ox 98 O2 Delivery Room Air Capillary Refill : Less Than 3 Seconds General Appearance: no apparent distress Respiratory: lungs clear, normal breath sounds Cardiovascular: regular rate, rhythm, no murmur Gastrointestinal: normal bowel sounds, non tender, soft Extremities: no pedal edema Neurologic/Psychiatric: alert Skin: normal color, tattoos/piercings Assessment/Plan Assessment/Plan Admission Status: Inpatient Order (span 2 midnights) Reason for Inpatient Admission: Vomiting with alcohol withdrawal at risk for serious complications. (1) Gastroenteritis Status: Acute Assessment & Plan: Supportive care with IVF, anti-emetics. (2) Severe sepsis Status: Acute Assessment & Plan: With marked lactic acidosis, although no real clear etiology other than suspected viral gastroenteritis. Lactic acidosis resolved with IVF. Zosyn for possible intraabdominal infection. (3) Thrombocytopenia Status: Acute Assessment & Plan: Likely secondary to alcoholic liver disease. Monitor. (4) Alcohol withdrawal Status: Acute Assessment & Plan: CIWA scoring, lorazepam per protocol. manager office services consult. Patient states not wanting to quit currently. Qualifiers: Qualified Codes: F10.230 - Alcohol dependence with withdrawal, uncomplicated (5) Elevated liver enzymes Status: Chronic Assessment & Plan: Check hepatitis panel. CT with fatty liver, history of reported cirrhosis, but he is unsure why this was diagnosed. No history of liver biopsy. (6) High anion gap metabolic acidosis Status: Resolved Assessment & Plan: Secondary to lactic acidosis and possibly alcoholic ketoacidosis. Resolved with IVF. (7) Hypokalemia Status: Acute Assessment & Plan: Replace and recheck. (8) DVT prophylaxis Status: Acute Assessment & Plan: Enoxaparin Clinical Quality Measures DVT/VTE Risk/Contraindication: Risk Factor Score Per Nursin RFS Level Per Nursing on Admit: 4+=Very High FROYLAN HUERTAS MD Jan 22, 2018 21:12
[2018-01-23 00:08] VITALS: BP 133/92
[2018-01-23 00:37] VITALS: BP 138/87
[2018-01-23] MEDS: NS W/KCL 20 MEQ/L 1,000 ML IV SCH ×4 (02:22→11:50)
[2018-01-23 04:00] VITALS: BP 136/88
[2018-01-23 06:00] LABS: BASOPHILS % (AUTO) 0 % (0-10); EOSINOPHILS # (AUTO) 0.2 10^3/uL (0.0-0.3); EOSINOPHILS % (AUTO) 4 % (0-10); HEMATOCRIT 41 % (40-54); HEMOGLOBIN 13.6 G/DL (13.3-17.7); LYMPHOCYTES # (AUTO) 1.3 X 10^3 (1.0-4.0); LYMPHOCYTES % (AUTO) 32 % (12-44); MEAN CORPUSCULAR HEMOGLOBIN 31 PG (25-34); MEAN CORPUSCULAR HGB CONC 33 G/DL (32-36); MEAN CORPUSCULAR VOLUME 95 FL (80-99); MONOCYTES # (AUTO) 0.3 X 10^3 (0.0-1.0); MONOCYTES % (AUTO) 7 % (0-12); NEUTROPHILS # (AUTO) 2.4 X 10^3 (1.8-7.8); NEUTROPHILS % (AUTO) 57 % (42-75); PLATELET COUNT 60 10^3/uL (130-400); RED BLOOD COUNT 4.32 10^6/uL (4.35-5.85); RED CELL DISTRIBUTION WIDTH 12.6 % (10.0-14.5); WHITE BLOOD COUNT 4.1 10^3/uL (4.3-11.0)
[2018-01-23 06:33] LABS: ALANINE AMINOTRANSFERASE 66 U/L (0-55); ALBUMIN 3.9 GM/DL (3.2-4.5); ALKALINE PHOSPHATASE 50 U/L (40-136); BILIRUBIN,TOTAL 1.1 MG/DL (0.1-1.0); BUN/CREATININE RATIO 13; CALCIUM 9.1 MG/DL (8.5-10.1); CARBON DIOXIDE 23 MMOL/L (21-32); CHLORIDE 107 MMOL/L (98-107); CREATININE SERUM 0.93 MG/DL (0.60-1.30); GFR ESTIMATED > 60; GLUCOSE 97 MG/DL (70-105); SODIUM 138 MMOL/L (135-145); TOTAL PROTEIN 6.9 GM/DL (6.4-8.2)
[2018-01-23 06:38] LABS: HEPATITIS C ANTIBODY C Non-Reactive (Non-Reactive)
[2018-01-23] MEDS ORDERED: ENOXAPARIN 40 MG/0.4 ML (LOVENOX) SYR SC SCH (07:00)
[2018-01-23] MEDS: PIPERACILLIN/TAZO 4.5 GM/NS 100 ML IV SCH ×2 (07:14)
[2018-01-23 08:00] VITALS: BP 149/96
[2018-01-23] MEDS: FAMOTIDINE 20MG/2ML IV (PEPCID) IV SCH (09:38)
[2018-01-23] MEDS ORDERED: LEVO750T39 PO (13:25)
--- NOTE | 2018-01-23 13:27 | Discharge Instructions ---
Discharge [facility] Discharge Medications New, Converted or Re-Newed RX: Transmitted to Pharmacy New Medications: Levofloxacin (Levofloxacin) 750 Mg Tablet 750 MG PO DAILY, #7 TAB 0 Refills Discontinued Medications: Ibuprofen (Advil) 200 Mg Tablet 600 MG PO TID PRN for PAIN-MILD, TAB Patient Instructions Goal/Follow Up Appt: Follow up with BLAYNE Hunter at [facility] on Jan 29 at 9:40 am. Return to The Hospital For: Fever, inability to keep down medications Activity & Diet Discharge Diet: Regular Diet Activity as Tolerated: Yes Copy Copies To 1: BLAYNE Hunter BETHANY N MD Jan 23, 2018 1:27 pm
[2018-01-23 13:48] VITALS: BP 149/96
--- NOTE | 2018-01-23 14:30 | Discharge Summary ---
Diagnosis/Chief Complaint Date of Admission Jan 21, 2018 at 6:45 pm Date of Discharge Jan 23, 2018 at 1:51 pm Admission Diagnosis Admission Diagnosis See problem list Discharge Diagnosis See problem list Problems/Diagnosis: (1) Gastroenteritis Assessment & Plan: Supportive care with IVF, anti-emetics. Status: Acute (2) Severe sepsis Assessment & Plan: With marked lactic acidosis, although no real clear etiology other than suspected viral gastroenteritis. Lactic acidosis resolved with IVF. Zosyn for possible intraabdominal infection. Discharged with course of levofloxacin. Status: Acute (3) Thrombocytopenia Assessment & Plan: Likely secondary to alcoholic liver disease. Monitor. Status: Acute (4) Alcohol withdrawal Assessment & Plan: CIWA scoring, lorazepam per protocol. financial services specialist consult. Patient states not wanting to quit currently. Qualifiers: Qualified Codes: F10.230 - Alcohol dependence with withdrawal, uncomplicated Status: Acute (5) Elevated liver enzymes Assessment & Plan: Check hepatitis panel. CT with fatty liver, history of reported cirrhosis, but he is unsure why this was diagnosed. No history of liver biopsy. Hepatitis panel neg. Status: Chronic (6) High anion gap metabolic acidosis Assessment & Plan: Secondary to lactic acidosis and possibly alcoholic ketoacidosis. Resolved with IVF. Status: Resolved Resolution Date/Time: 01/22/18 @ 21:20 (7) Hypokalemia Assessment & Plan: Replaced Status: Acute Chief Complaint/HPI Chief Complaint/HPI 52 yo male came to ER after having acute onset of vomiting last night. He has a history of heavy alcohol use and last drink was over 24 hours ago because he vomited when he tried to drink more recently. He denies fever, diarrhea. Discharge Summary-Simple/Stand Consultations Discharge Physical Examination Allergies: Coded Allergies: NKANo Known Allergies (Unverified Allergy, Mild, 04/20/09) Vitals & I&Os Vital Sign - Last 12Hours Date Time Temp Pulse Resp B/P (MAP) Pulse Ox O2 Delivery O2 Flow Rate FiO2 01/23/18 13:48 84 20 149/96 98 Room Air 01/23/18 08:00 97.7 Intake and Output 01/23/18 00:00 Intake Total 4360 ml Balance 4360 ml General Appearance: Alert, No Acute Distress Respiratory: Clear to Auscultation, Normal Air Movement Cardiovascular: Regular Rate, No Murmurs Psych/Mental Status: Mental Status NL Hospital Course See final discharge diagnosis. Labs Laboratory Tests Test 01/22/18 03:00 01/23/18 05:36 Range/Units White Blood Count 5.5 4.1 L 4.3-11.0 10^3/uL Red Blood Count 4.31 L 4.32 L 4.35-5.85 10^6/uL Hemoglobin 13.3 13.6 13.3-17.7 G/DL Hematocrit 40 41 40-54 % Mean Corpuscular Volume 93 95 80-99 FL Mean Corpuscular Hemoglobin 31 31 25-34 PG Mean Corpuscular Hemoglobin Concent 33 33 32-36 G/DL Red Cell Distribution Width 12.4 12.6 10.0-14.5 % Platelet Count 75 L 60 L 130-400 10^3/uL Mean Platelet Volume 10.4 10.0 7.4-10.4 FL Neutrophils (%) (Auto) 71 57 42-75 % Lymphocytes (%) (Auto) 16 32 12-44 % Monocytes (%) (Auto) 13 H 7 0-12 % Eosinophils (%) (Auto) 0 4 0-10 % Basophils (%) (Auto) 0 0 0-10 % Neutrophils # (Auto) 3.9 2.4 1.8-7.8 X 10^3 Lymphocytes # (Auto) 0.9 L 1.3 1.0-4.0 X 10^3 Monocytes # (Auto) 0.7 0.3 0.0-1.0 X 10^3 Eosinophils # (Auto) 0.0 0.2 0.0-0.3 10^3/uL Basophils # (Auto) 0.0 0.0 0.0-0.1 10^3/uL Sodium Level 140 138 135-145 MMOL/L Potassium Level 3.3 L 4.0 3.6-5.0 MMOL/L Chloride Level 102 107 98-107 MMOL/L Carbon Dioxide Level 26 23 21-32 MMOL/L Anion Gap 12 8 5-14 MMOL/L Blood Urea Nitrogen 7 12 7-18 MG/DL Creatinine 0.85 0.93 0.60-1.30 MG/DL Estimat Glomerular Filtration Rate > 60 > 60 BUN/Creatinine Ratio 8 13 Glucose Level 101 97 70-105 MG/DL Calcium Level 9.2 9.1 8.5-10.1 MG/DL Corrected Calcium 9.1 9.2 8.5-10.1 MG/DL Phosphorus Level 3.0 2.3-4.7 MG/DL Magnesium Level 2.3 1.8-2.4 MG/DL Total Bilirubin 1.3 H 1.1 H 0.1-1.0 MG/DL Aspartate Amino Transf (AST/SGOT) 85 H 81 H 5-34 U/L Alanine Aminotransferase (ALT/SGPT) 69 H 66 H 0-55 U/L Alkaline Phosphatase 51 50 40-136 U/L Total Protein 7.3 6.9 6.4-8.2 GM/DL Albumin 4.1 3.9 3.2-4.5 GM/DL Hepatitis A IgM Antibody Non-Reactive Non-Reactive Hepatitis B Surface Antigen Non-Reactive Non-Reactive Hepatitis B Core IgM Antibody Non-Reactive Non-Reactive Hepatitis C Antibody Non-Reactive Non-Reactive Radiology Reviewed CXR 01/21: No acute findings CT abd 01/21: IMPRESSION: 1. There is fatty metamorphosis of the liver. 2. Diverticulosis without inflammation. 3. Possible constipation. 4. There is mild thickening of the urinary bladder guzman, and this could be due to chronic outlet obstruction versus cystitis. Discharge Instructions to patient/family Please see electronic discharge instructions given to patient. Discharge Medications Reviewed and agree with Discharge Medication list on patient's Discharge Instruction sheet Clinical Quality Measures DVT/VTE Risk/Contraindication: Risk Factor Score Per Nursin RFS Level Per Nursing on Admit: 4+=Very High Copy Copies To 1: BLAYNE Hunter BETHANY N MD Jan 23, 2018 14:30
== END 2018-01-23 13:51 | disposition home or self-care (01) | DRG 872 ==
LOC: EDUNIT# 15:18 → ER 15:19 → ICU 18:45 → 4TH 01-22 10:00
PROVIDERS: ADMIT Family Medicine; ATTEND Family Medicine
DX: A41.89 Other specified sepsis (principal); A08.4 Viral intestinal infection, unspecified; E86.0 Dehydration; F10.239 Alcohol dependence with withdrawal, unspecified; K70.30 Alcoholic cirrhosis of liver without ascites; D69.6 Thrombocytopenia, unspecified; E87.6 Hypokalemia; F17.210 Nicotine dependence, cigarettes, uncomplicated
CPT/HCPCS: 36415; 71045; 74177; 80053; 80074; 80320; 81000; 82140; 83605; 83735; 84100; 85025; 85610; 85730; 87040; 87081; 87088; 90471; 90686; 96361; 96365; 96366; 96375

== ENCOUNTER 2018-09-29 14:43 | Emergency (ER) | payer SELFPAY ==
[~2018-09-29] VITALS: Ht 185.4 cm; Wt 89.8 kg
[~2018-09-29 14:43] MED LIST changes: +IBUP-30 PO; +LEVO750T39 PO
--- NOTE | 2018-09-29 14:52 | ED General ---
General Stated Complaint: SUICIDAL Source of Information: Patient, EMS Exam Limitations: No Limitations (A.m.) History of Present Illness Date Seen by Provider: Sep 29, 2018 Time Seen by Provider: 14:50 Initial Comments Intoxicated male from home where he lives with his sister and roommates with reports of a nosebleed. Upon EMS arrival nose was bleeding somewhat, however it's been bleeding off and on for 3 days and he's been picking his nose and is doing that on arrival here. However the reason for coming here today is because he's also been suicidal for about 3 days. He states he's never been suicidal before, takes no medication for mental health disorder, does not have a specific plan is to how he would do about this. He relates this suicidality to his recent leaving him in May. Timing/Duration: 1-2 Days Severity: Moderate Associated Systoms: Denies Symptoms Allergies and Home Medications Allergies Coded Allergies: NKANo Known Allergies (Unverified Allergy, Mild, 04/20/09) Home Medications Levofloxacin 750 Mg Tablet, 750 MG PO DAILY Prescribed by: FROYLAN CALDERA on 01/23/18 1325 Patient Home Medication List Home Medication List Reviewed: Yes Review of Systems Review of Systems Constitutional: see HPI EENTM: see HPI Respiratory: no symptoms reported Cardiovascular: no symptoms reported Genitourinary: no symptoms reported Musculoskeletal: no symptoms reported Skin: no symptoms reported Psychiatric/Neurological: No Symptoms Reported Hematologic/Lymphatic: No Symptoms Reported Past Ofocxuc-Mmdqkm-Tkoczz Hx Patient Social History Alcohol Beverage of Choice: Beer Drug of Choice: historical use of smoking meth and marijuana over a year ago Type Used: Cigarettes 2nd Hand Smoke Exposure: No Recent Foreign Travel: No Contact w/Someone Who Travel: No Recent Hopitalizations: No Immunizations Up To Date Tetanus Booster (TDap): Unknown Date of Influenza Vaccine: Jan 17, 2016 Seasonal Allergies Seasonal Allergies: No Past Medical History Surgeries: No Respiratory: No Currently Using CPAP: No Currently Using BIPAP: No Cardiac: No Hypertension Neurological: No Reproductive Disorders: No Genitourinary: Yes (enlarge prostate ) Prostate Problems Gastrointestinal: No Liver Disease/Jaundice Musculoskeletal: No Endocrine: No HEENT: No Cancer: No Psychosocial: No Anxiety Integumentary: No Blood Disorders: No Adverse Reaction/Blood Tranf: No Family Medical History No Pertinent Family Hx Physical Exam Vital Signs Vital Signs - First Documented 09/29/18 15:03 Temp 98.3 Pulse 92 Resp 16 B/P (MAP) 136/86 (103) Pulse Ox 95 O2 Delivery Room Air Capillary Refill : Height, Weight, BMI Height: 6'2.00" Weight: 200lbs. 0.0oz. [id number]; 25.9 BMI Method:Stated General Appearance: No Apparent Distress, WD/WN Eyes: Bilateral Eye Normal Inspection, Bilateral Eye PERRL HEENT: PERRL/EOMI, TMs Normal Neck: Full Range of Motion, Normal Inspection Respiratory: No Accessory Muscle Use, No Respiratory Distress Cardiovascular: Regular Rate, Rhythm, Normal Peripheral Pulses Gastrointestinal: Normal Bowel Sounds, Non Tender, Soft Extremity: Normal Capillary Refill, Normal Inspection Neurologic/Psychiatric: Alert, Oriented x3 Skin: Normal Color, Warm/Dry Progress/Results/Core Measures Suspected Sepsis SIRS Temperature: Pulse: Respiratory Rate: Laboratory Tests 09/29/18 15:08: White Blood Count 3.9L Blood Pressure / Mean: Laboratory Tests 09/29/18 15:08: Creatinine 0.79, INR Comment 1.0, Platelet Count 61L, Total Bilirubin 1.0 Results/Orders Lab Results Laboratory Tests Test 09/29/18 15:08 Range/Units White Blood Count 3.9 L 4.3-11.0 10^3/uL Red Blood Count 4.44 4.35-5.85 10^6/uL Hemoglobin 14.1 13.3-17.7 G/DL Hematocrit 41 40-54 % Mean Corpuscular Volume 93 80-99 FL Mean Corpuscular Hemoglobin 32 25-34 PG Mean Corpuscular Hemoglobin Concent 34 32-36 G/DL Red Cell Distribution Width 13.6 10.0-14.5 % Platelet Count 61 L 130-400 10^3/uL Mean Platelet Volume 10.0 7.4-10.4 FL Neutrophils (%) (Auto) 48 42-75 % Lymphocytes (%) (Auto) 42 12-44 % Monocytes (%) (Auto) 8 0-12 % Eosinophils (%) (Auto) 2 0-10 % Basophils (%) (Auto) 1 0-10 % Neutrophils # (Auto) 1.9 1.8-7.8 X 10^3 Lymphocytes # (Auto) 1.7 1.0-4.0 X 10^3 Monocytes # (Auto) 0.3 0.0-1.0 X 10^3 Eosinophils # (Auto) 0.1 0.0-0.3 10^3/uL Basophils # (Auto) 0.0 0.0-0.1 10^3/uL Prothrombin Time 13.1 12.2-14.7 SEC INR Comment 1.0 0.8-1.4 Sodium Level 140 135-145 MMOL/L Potassium Level 3.5 L 3.6-5.0 MMOL/L Chloride Level 100 98-107 MMOL/L Carbon Dioxide Level 24 21-32 MMOL/L Anion Gap 16 H 5-14 MMOL/L Blood Urea Nitrogen 4 L 7-18 MG/DL Creatinine 0.79 0.60-1.30 MG/DL Estimat Glomerular Filtration Rate > 60 BUN/Creatinine Ratio 5 Glucose Level 113 H 70-105 MG/DL Calcium Level 9.2 8.5-10.1 MG/DL Corrected Calcium 8.9 8.5-10.1 MG/DL Total Bilirubin 1.0 0.1-1.0 MG/DL Aspartate Amino Transf (AST/SGOT) 169 H 5-34 U/L Alanine Aminotransferase (ALT/SGPT) 102 H 0-55 U/L Alkaline Phosphatase 95 40-136 U/L Total Protein 8.0 6.4-8.2 GM/DL Albumin 4.4 3.2-4.5 GM/DL Serum Alcohol 457 *H <10 MG/DL My Orders Orders - [employer] Cbc With Automated Diff (09/29/18 14:48) Comprehensive Metabolic Panel (09/29/18 14:48) Alcohol (09/29/18 14:48) Ed Iv/Invasive Line Start (09/29/18 14:48) Protime With Inr (09/29/18 14:50) Vital Signs/I&O 09/29/18 15:03 Temp 98.3 Pulse 92 Resp 16 B/P (MAP) 136/86 (103) Pulse Ox 95 O2 Delivery Room Air Capillary Refill : Departure Communication (Admissions) 1389-patient sitting up on the edge of the bed, states that he is not suicidal, doesn't want to hurt himself, states "I was just sad". We'll discharge him to home via taxi to the care of his sister Anne-Marie Mancia Impression Primary Impression: Alcoholism Disposition: HOME, SELF-CARE Condition: Stable Departure-Patient Inst. Decision time for Depature: 17:35 Referrals: KEVYN URBANO MD (PCP/Family) Primary Care Physician Patient Instructions: Nosebleeds Add. Discharge Instructions: 1. Your platelet count is low because of the many years of alcohol use. This contributes your nosebleed. If his bleeds again pinch it for 20 minutes so as to apply direct pressure to the site. If that fails to stop the bleed then come to the emergency room. No blowing your nose and no picking her nose for one week. PEDRO HANCOCK APRN Sep 29, 2018 14:52
--- NOTE | 2018-09-29 15:03 | NUR ---
pt here by self. pt alert gcs 15. pt apparantely came by rescue. pt c/o epistaxix x 3 days. no acute nose bleed noted curently. pt also appears intoxicated with smell of alcohol. pt relates alcohol as " all the time". denies illegal drugs. positve alcohol today. pt has ems liter of 600 gone turned off in er already and d/cd by me. pt also apparantely is suicidal with me and says he has no plan. denies being homicidal. pt denies pain and dyspnea and no acute sighns of dyspnea noted. lungs cta bilaterally. pt denies abd pain and n/v/d. abd w/o pain with palpation. tech id drawing blood. done christopher pt at 1515.
[2018-09-29 15:28] LABS: PROTHROMBIN TIME PATIENT 13.1 SEC (12.2-14.7)
[2018-09-29 15:29] LABS: BASOPHILS % (AUTO) 1 % (0-10); EOSINOPHILS # (AUTO) 0.1 10^3/uL (0.0-0.3); EOSINOPHILS % (AUTO) 2 % (0-10); HEMATOCRIT 41 % (40-54); HEMOGLOBIN 14.1 G/DL (13.3-17.7); LYMPHOCYTES # (AUTO) 1.7 X 10^3 (1.0-4.0); LYMPHOCYTES % (AUTO) 42 % (12-44); MEAN CORPUSCULAR HEMOGLOBIN 32 PG (25-34); MEAN CORPUSCULAR HGB CONC 34 G/DL (32-36); MEAN CORPUSCULAR VOLUME 93 FL (80-99); MONOCYTES # (AUTO) 0.3 X 10^3 (0.0-1.0); MONOCYTES % (AUTO) 8 % (0-12); NEUTROPHILS # (AUTO) 1.9 X 10^3 (1.8-7.8); NEUTROPHILS % (AUTO) 48 % (42-75); PLATELET COUNT 61 10^3/uL (130-400); RED CELL DISTRIBUTION WIDTH 13.6 % (10.0-14.5); WHITE BLOOD COUNT 3.9 10^3/uL (4.3-11.0)
[2018-09-29 15:36] LABS: ALANINE AMINOTRANSFERASE 102 U/L (0-55); ALBUMIN 4.4 GM/DL (3.2-4.5); ALKALINE PHOSPHATASE 95 U/L (40-136); BUN/CREATININE RATIO 5; CALCIUM 9.2 MG/DL (8.5-10.1); CARBON DIOXIDE 24 MMOL/L (21-32); CHLORIDE 100 MMOL/L (98-107); CREATININE SERUM 0.79 MG/DL (0.60-1.30); GFR ESTIMATED > 60; GLUCOSE 113 MG/DL (70-105); POTASSIUM 3.5 MMOL/L (3.6-5.0); SODIUM 140 MMOL/L (135-145)
--- NOTE | 2018-09-29 15:56 | NUR ---
pt sister adebayo called. pt gave me ok to talk to her. she asked about his nose bleed. i said no nose bleed now and waiting for labs. i welcomed her to call back in a hr.
--- NOTE | 2018-09-29 16:15 | NUR ---
pt sleeping calm cooperative nonviolent in er visit thus far.
--- NOTE | 2018-09-29 17:32 | NUR ---
dr said pt not suicidal now . he is calling pt sister for ride home.
--- NOTE | 2018-09-29 17:38 | NUR ---
pt alert gcs 15. denies dyspnea and no acute sighns of dyspnea noted. no nose bleed thruout er visit noted. ptdenies being suicidal with me as well. filled out cab pass for pt to return home. and pt sister to see him therei overheard phone conversation between and sister. d/c vs bp machine is 124/88 ausc hr 104 reg ausc resp 16 normal recheck temp 98.1 p ox r/a is 94. i d/cd pt iv.
[2018-09-29 17:45] VITALS: BP 124/88
--- NOTE | 2018-09-29 17:45 | NUR ---
d/c instrcutions to pt. told to read all papers. no scripts given. pt left ambulatory by self. i took pt to w/r. pt knows f/u. i went over the handtyped by information on the chart. iv d/cd by me prior to d/c. cab pass given.
== END 2018-09-29 17:45 | disposition home or self-care (01) ==
LOC: EDUNIT# 14:43 → ER 14:44
DX: F10.20 Alcohol dependence, uncomplicated (principal); I10 Essential (primary) hypertension; F41.9 Anxiety disorder, unspecified; Y90.8 Blood alcohol level of 240 mg/100 ml or more
CPT/HCPCS: 36415; 80053; 80320; 85025; 85610; 99285

== ENCOUNTER 2018-11-01 19:55 | Emergency (ER) | payer SELFPAY, OTHER | END 2018-11-01 21:37 | disposition left against medical advice (07) | LOC: ER 19:55 ==

== ENCOUNTER 2019-04-19 12:17 | Emergency (ER) | payer SELFPAY ==
[~2019-04-19] VITALS: Ht 185.4 cm; Wt 91.8 kg
[2019-04-19 12:17] VITALS: BP 163/113
[2019-04-19] MEDS ORDERED: LACTATED RINGERS 1,000 ML IV ONE ×2 (12:27→13:20)
[2019-04-19] MEDS ORDERED: PANTOPRAZOLE 40 MG (PROTONIX) VIAL IV ONE (12:30)
[2019-04-19] MEDS ORDERED: ASPIRIN 81 MG CHEW (CHILDREN'S ASA) PO ONE (12:30)
--- NOTE | 2019-04-19 12:34 | ED Chest Pain ---
General Stated Complaint: CHEST PAIN Source: patient, EMS, old records (ALL PMH IS FROM OLD RECORDS) History of Present Illness Date Seen by Provider: Apr 19, 2019 Time Seen by Provider: 12:18 Initial Comments PT ARRIVES VIA EMS FROM HOME PT STATES HE HAD CHEST PAIN WHEN HE WOKE UP AT 0400 THIS AM PAIN IN RIGHT UPPER CHEST PT WAITED FOR THE [facility]QU[facility] STORE TO OPEN AT 0800, AND HE GOT BEER, AND DRANK 8 BEERS. SOON HE STARTED DRINKING BEER, HIS PAIN WENT AWAY AND WAS GONE BY 0830 AND HAS NOT RETURNED. NO OTHER SYMPTOMS EMS DID NOT GIVE ASPIRIN OR NTG. IS UNCLEAR WHY HE CALLED EMS, AT THIS TIME, HIS PAIN HAS BEEN GONE FOR 4 HOURS. PT IS OBVIOUSLY INTOXICATED AND IS LIMITED HISTORIAN OTHERWISE. PT IS UNABLE OR UNWILLING TO STATE HOW MUCH HE DRINKS A DAY--ONLY REPEATS "I ONLY HAD 8 TODAY" PT WITH EXTENSIVE HISTORY OF DAILY, HEAVY ALCOHOL USE/ABUSE SINCE AGE 17 PT HAS HAD MULTIPLE VISITS HERE ALL FOR ALCOHOL INTOXICATION OR WITHDRAWL SYMPTOMS, OR INJURIES RELATED TO BEING INTOXICATED. PT HAS HAD D.T'S, WITHDRAWL SYMPTOMS, BUT NO HISTORY OF ALCOHOL WITHDRAWL SEIZURES. PT HAS REPEATEDLY REFUSED ANY KIND OF TREATMENT AND HAS NOT DESIRE TO STOP DRINKING ALCOHOL LEVELS IN THE MID TO UPPER 400'S RANGE ON LAST FEW VISITS HERE. DENIES ANY PAIN OR ANY OTHER SYMPTOMS AT THIS TIME. PT DENIES HISTORY OF CARDIAC PROBLEMS PCP: DR. URBANO, [facility] – [place] Allergies and Home Medications Allergies Coded Allergies: NKANo Known Allergies (Unverified Allergy, Mild, 04/20/09) Home Medications Levofloxacin 750 Mg Tablet, 750 MG PO DAILY Prescribed by: FROYLAN CALDERA on 01/23/18 1325 Patient Home Medication List Home Medication List Reviewed: Yes Review of Systems Review of Systems Constitutional: no symptoms reported Respiratory: No Symptoms Reported Cardiovascular: See HPI Gastrointestinal: No Symptoms Reported Psychiatric/Neurological: See HPI Past Txngtbw-Tdavhi-Xovvhz Hx Past Med/Social Hx: Reviewed and Corrections made Patient Social History Alcohol Use: Regular Use (VERY HEAVY, DAILY USE SINCE AGE 17) Alcohol Beverage of Choice: Beer Recreational Drug Use: Yes (HX OF SMOKING METH, THC) Drug of Choice: HX OF SMOKING METH AND MARIJUANA Smoking Status: Current Everyday Smoker (> 1 PPD) Type Used: Cigarettes 2nd Hand Smoke Exposure: No Recent Foreign Travel: No Contact w/Someone Who Travel: No Recent Hopitalizations: No Immunizations Up To Date Tetanus Booster (TDap): Unknown Date of Influenza Vaccine: Jan 17, 2016 Seasonal Allergies Seasonal Allergies: No Past Medical History Surgeries: No Respiratory: No Currently Using CPAP: No Currently Using BIPAP: No Cardiac: Yes (RBBB; QUESTIONABLE HISTORY OF HTN-POSSIBLY RELATED TO ETOH WITHDRAWL??) Hypertension (?) Neurological: No Reproductive Disorders: No Genitourinary: Yes (enlarged prostate ) Benign Prostatic Hyperpl, Prostate Problems Gastrointestinal: Yes Liver Disease/Jaundice, Chronic Diarrhea, Cirrhosis Musculoskeletal: No Endocrine: No HEENT: No Cancer: No Psychosocial: Yes (POLYSUBSTANCE ABUSE--ALCOHOL + DRUGS) Anxiety Integumentary: No Blood Disorders: No Adverse Reaction/Blood Tranf: No Family Medical History No Pertinent Family Hx HISTORY OF D.T.'S WITH ALCOHOL WITHDRAWL, BUT NO HISTORY OF ALCOHOL WITHDRAWL SEIZURES. PT HAS REPEATEDLY REFUSED ANY KIND OF ALCOHOL TREATMENT AND HAS NO DESIRE TO STOP DRINKING. Physical Exam Vital Signs Vital Signs - First Documented 04/19/19 12:17 Temp 36.7 Pulse 95 Resp 18 B/P (MAP) 163/113 (130) Capillary Refill : Height, Weight, BMI Height: 6'1.00" Weight: 198lbs. 0.0oz. [id number]; 25.9 BMI Method:Stated General Appearance: No Apparent Distress, WD/WN, Other (OBVIOUSLY INTOXICATED--REEKS OF ETOH AND CIGARETTES AND SPEECH IS SLURRED, AND DIFFICULTY KEEPING ON SUBJECT. UNKEMPT) HEENT: PERRL/EOMI Neck: Normal Inspection, Non Tender Respiratory: Chest Non Tender, Normal Breath Sounds, No Accessory Muscle Use, No Respiratory Distress Cardiovascular: Regular Rate, Rhythm, No Edema, No JVD, No Murmur, Normal Peripheral Pulses Gastrointestinal: Normal Bowel Sounds, Non Tender, Soft Extremity: Normal Inspection, No Pedal Edema Neurologic/Psychiatric: Alert, Oriented x3 (BUT DIFFICULTY STAYING ON SUBJECT. ), No Motor/Sensory Deficits, smoke tester II-XII Norm as Tested Skin: Normal Color, Warm/Dry, Tattoos/Piercings (EXTENSIVE TATTOOS), Other (NO EXTERNAL EVIDENCE OF TRAUMA ANYWHERE) Progress/Results/Core Measures Results/Orders Lab Results Laboratory Tests Test 04/19/19 12:31 04/19/19 14:35 Range/Units White Blood Count 6.3 4.3-11.0 10^3/uL Red Blood Count 4.94 4.35-5.85 10^6/uL Hemoglobin 14.7 13.3-17.7 G/DL Hematocrit 45 40-54 % Mean Corpuscular Volume 90 80-99 FL Mean Corpuscular Hemoglobin 30 25-34 PG Mean Corpuscular Hemoglobin Concent 33 32-36 G/DL Red Cell Distribution Width 13.1 10.0-14.5 % Platelet Count 129 L 130-400 10^3/uL Mean Platelet Volume 8.8 7.4-10.4 FL Neutrophils (%) (Auto) 46 42-75 % Lymphocytes (%) (Auto) 47 H 12-44 % Monocytes (%) (Auto) 6 0-12 % Eosinophils (%) (Auto) 1 0-10 % Basophils (%) (Auto) 1 0-10 % Neutrophils # (Auto) 2.9 1.8-7.8 X 10^3 Lymphocytes # (Auto) 2.9 1.0-4.0 X 10^3 Monocytes # (Auto) 0.4 0.0-1.0 X 10^3 Eosinophils # (Auto) 0.1 0.0-0.3 10^3/uL Basophils # (Auto) 0.0 0.0-0.1 10^3/uL Prothrombin Time 13.7 12.2-14.7 SEC INR Comment 1.0 0.8-1.4 Activated Partial Thromboplast Time 29 24-35 SEC Sodium Level 139 135-145 MMOL/L Potassium Level 4.0 3.6-5.0 MMOL/L Chloride Level 101 98-107 MMOL/L Carbon Dioxide Level 24 21-32 MMOL/L Anion Gap 14 5-14 MMOL/L Blood Urea Nitrogen 8 7-18 MG/DL Creatinine 0.90 0.60-1.30 MG/DL Estimat Glomerular Filtration Rate > 60 BUN/Creatinine Ratio 9 Glucose Level 97 70-105 MG/DL Calcium Level 9.2 8.5-10.1 MG/DL Corrected Calcium 8.9 8.5-10.1 MG/DL Magnesium Level 2.1 1.6-2.4 MG/DL Total Bilirubin 0.6 0.1-1.0 MG/DL Aspartate Amino Transf (AST/SGOT) 57 H 5-34 U/L Alanine Aminotransferase (ALT/SGPT) 37 0-55 U/L Alkaline Phosphatase 65 40-136 U/L Myoglobin 131.7 H 10.0-92.0 NG/ML Troponin I < 0.028 <0.028 NG/ML B-Type Natriuretic Peptide < 10.0 <100.0 PG/ML Total Protein 8.1 6.4-8.2 GM/DL Albumin 4.4 3.2-4.5 GM/DL Amylase Level 42 25-125 U/L Lipase 8 8-78 U/L Serum Alcohol 430 *H <10 MG/DL Urine Color YELLOW Urine Clarity CLEAR Urine pH 6.0 5-9 Urine Specific [place] <=1.005 1.016-1.022 Urine Protein NEGATIVE NEGATIVE Urine Glucose (UA) NEGATIVE NEGATIVE Urine Ketones NEGATIVE NEGATIVE Urine Nitrite NEGATIVE NEGATIVE Urine Bilirubin NEGATIVE NEGATIVE Urine Urobilinogen 0.2 < = 1.0 MG/DL Urine Leukocyte Esterase NEGATIVE NEGATIVE Urine RBC (Auto) NEGATIVE NEGATIVE Urine RBC NONE /HPF Urine WBC NONE /HPF Urine Crystals NONE /LPF Urine Bacteria TRACE /HPF Urine Casts NONE /LPF Urine Mucus NEGATIVE /LPF Urine Culture Indicated NO Urine Opiates Screen NEGATIVE NEGATIVE Urine Oxycodone Screen NEGATIVE NEGATIVE Urine Methadone Screen NEGATIVE NEGATIVE Urine Propoxyphene Screen NEGATIVE NEGATIVE Urine Barbiturates Screen NEGATIVE NEGATIVE Ur Tricyclic Antidepressants Screen NEGATIVE NEGATIVE Urine Phencyclidine Screen NEGATIVE NEGATIVE Urine Amphetamines Screen NEGATIVE NEGATIVE Urine Methamphetamines Screen NEGATIVE NEGATIVE Urine Benzodiazepines Screen NEGATIVE NEGATIVE Urine Cocaine Screen NEGATIVE NEGATIVE Urine Cannabinoids Screen NEGATIVE NEGATIVE My Orders Orders - NILA SANCHES K DO Alcohol (04/19/19 12:27) Amylase (04/19/19 12:27) Drug Screen Stat (Urine) (04/19/19 12:27) Lipase (04/19/19 12:27) Ua Culture If Indicated (04/19/19 12:27) Ed Iv/Invasive Line Start (04/19/19 12:27) Lactated Ringers (Lr 1000 Ml Iv Solution (04/19/19 12:27) Pantoprazole Injection (Protonix Injecti (04/19/19 12:30) Ed Iv/Invasive Line Start (04/19/19 13:20) Lactated Ringers (Lr 1000 Ml Iv Solution (2/8/20 13:20) Thiamine Injection (Vitamin B-1 Injectio (04/19/19 15:15) Ed Iv/Invasive Line Start (04/19/19 15:15) Ns Iv 1000 Ml (Sodium Chloride 0.9%) (04/19/19 15:15) Medications Given in ED Vital Signs/I&O 04/19/19 12:17 Temp 36.7 Pulse 95 Resp 18 B/P (MAP) 163/113 (130) 04/20/19 00:00 Intake Total 1000 ml Balance 1000 ml Progress Progress Note : Progress Note NO COMPLAINTS OF CHEST PAIN OR ANY COMPLAINTS OF ANY KIND FOR ENTIRE ER STAY PT GIVEN IV FLUIDS AND BANANA BAG SPEECH IS NOW CLEAR AND GAIT STEADY AT DISMISSAL AND PT IS ANXIOUS TO GO HOME Initial ECG Impression Date: Apr 19, 2019 Initial ECG Impression Time: 12:33 Initial ECG Rate: 92 Initial ECG Rhythm: Normal Sinus (RBBB) Initial ECG Comparisson: Unchanged Diagnostic Imaging Comments XR--NO ACUTE PROCESS, PER RADIOLOGIST REPORT AT 1438 Reviewed: Reviewed by Me Departure Impression Primary Impression: Alcohol intoxication in active alcoholic Disposition: 01 HOME, SELF-CARE Condition: Stable Departure-Patient Inst. Referrals: KEVYN URBANO MD (PCP/Family) Primary Care Physician Patient Instructions: Alcohol Abuse and Alcoholism (DC), Effects of Alcohol on Your Health Add. Discharge Instructions: NO ALCOHOL LOTS OF CLEAR LIQUIDS--WATER, BROTH, JELLO, GATORADE FOLLOW UP WITH YOUR DR THIS WEEK FOR FURTHER CARE RETURN TO ER IF WORSE NILA SANCHES DO Apr 19, 2019 12:34
[2019-04-19 12:40] LABS: BASOPHILS % (AUTO) 1 % (0-10); EOSINOPHILS # (AUTO) 0.1 10^3/uL (0.0-0.3); EOSINOPHILS % (AUTO) 1 % (0-10); HEMATOCRIT 45 % (40-54); HEMOGLOBIN 14.7 G/DL (13.3-17.7); LYMPHOCYTES # (AUTO) 2.9 X 10^3 (1.0-4.0); LYMPHOCYTES % (AUTO) 47 % (12-44); MEAN CORPUSCULAR HEMOGLOBIN 30 PG (25-34); MEAN CORPUSCULAR HGB CONC 33 G/DL (32-36); MEAN CORPUSCULAR VOLUME 90 FL (80-99); MEAN PLATELET VOLUME 8.8 FL (7.4-10.4); MONOCYTES # (AUTO) 0.4 X 10^3 (0.0-1.0); MONOCYTES % (AUTO) 6 % (0-12); NEUTROPHILS # (AUTO) 2.9 X 10^3 (1.8-7.8); NEUTROPHILS % (AUTO) 46 % (42-75); PLATELET COUNT 129 10^3/uL (130-400); RED CELL DISTRIBUTION WIDTH 13.1 % (10.0-14.5); WHITE BLOOD COUNT 6.3 10^3/uL (4.3-11.0)
[2019-04-19 12:54] LABS: PROTHROMBIN TIME PATIENT 13.7 SEC (12.2-14.7)
[2019-04-19 13:01] LABS: ALANINE AMINOTRANSFERASE 37 U/L (0-55); ALBUMIN 4.4 GM/DL (3.2-4.5); ALKALINE PHOSPHATASE 65 U/L (40-136); BILIRUBIN,TOTAL 0.6 MG/DL (0.1-1.0); BUN/CREATININE RATIO 9; CALCIUM 9.2 MG/DL (8.5-10.1); CARBON DIOXIDE 24 MMOL/L (21-32); CHLORIDE 101 MMOL/L (98-107); GFR ESTIMATED > 60; GLUCOSE 97 MG/DL (70-105); MAGNESIUM 2.1 MG/DL (1.6-2.4); SODIUM 139 MMOL/L (135-145); TOTAL PROTEIN 8.1 GM/DL (6.4-8.2)
[2019-04-19 13:03] LABS: AMYLASE 42 U/L (25-125); LIPASE 8 U/L (8-78)
--- NOTE | 2019-04-19 13:44 | Diagnostic Imaging Report ---
INDICATION: Chest pain EXAMINATION: Single view chest dated 04/19/2019 COMPARISON: 01/22/2018 FINDINGS: The cardiomediastinal silhouette is unremarkable. The pulmonary vasculature is within normal limits. The lungs and pleural spaces are clear. IMPRESSION: No evidence of an acute cardiopulmonary process. Dictated by: Dictated on workstation # [id number]
[2019-04-19 14:40] LABS: BILIRUBIN,URINE NEGATIVE (NEGATIVE); CLARITY,URINE CLEAR; COLOR,URINE YELLOW; GLUCOSE, URINE (UA) NEGATIVE (NEGATIVE); KETONES,URINE NEGATIVE (NEGATIVE); LEUKOCYTE ESTERASE ,URINE NEGATIVE (NEGATIVE); NITRITE,URINE NEGATIVE (NEGATIVE); PROTEIN,URINE NEGATIVE (NEGATIVE)
[2019-04-19 15:11] LABS: BACTERIA,URINE TRACE /HPF
[2019-04-19] MEDS ORDERED: THIAMINE INJECTION 100 MG, FOLIC ACID INJECTION 1 MG, VITAMIN MULTI INJECTION 10 ML, MA... IV SCH ×5 (15:15)
[2019-04-19] MEDS ORDERED: NS IV 1000 ML 1,000 ML IV SCH (15:15)
[2019-04-19 15:30] LABS: AMPHETAMINE SCREEN, URINE NEGATIVE (NEGATIVE); BARBITURATE SCREEN URINE NEGATIVE (NEGATIVE); BENZODIAZEPINES SCREEN URINE NEGATIVE (NEGATIVE); CANNABINOID SCREEN, URINE NEGATIVE (NEGATIVE); COCAINE SCREEN URINE NEGATIVE (NEGATIVE); METHADONE STAT NEGATIVE (NEGATIVE); METHAMPHETAMINE SCREEN URINE S NEGATIVE (NEGATIVE); OPIATE SCREEN URINE NEGATIVE (NEGATIVE); OXYCODONE STAT NEGATIVE (NEGATIVE); PROPOXYPHENE STAT NEGATIVE (NEGATIVE); TRICYCLIC ANTIDEPRESSANTS SCRE NEGATIVE (NEGATIVE)
== END 2019-04-19 16:57 | disposition home or self-care (01) ==
LOC: EDUNIT# 12:17 → ER 12:18
DX: F10.129 Alcohol abuse with intoxication, unspecified (principal); F17.210 Nicotine dependence, cigarettes, uncomplicated; Y90.8 Blood alcohol level of 240 mg/100 ml or more
CPT/HCPCS: 36415; 71045; 80053; 80306; 80320; 81000; 82150; 83690; 83735; 83874; 83880; 84484; 85025; 85610; 85730; 93005; 93041; 96361; 96374

== ENCOUNTER → 2020-04-07 | Outpatient (CLI) | payer SELFPAY ==
--- NOTE | 2020-04-07 11:28 | Diagnostic Imaging Report ---
EXAMINATION: CT head without contrast. TECHNIQUE: Multiple contiguous axial images were obtained through the brain without the use of intravenous contrast. All CT scans use one or more of the following dose optimizing techniques: automated exposure control, MA and/or KvP adjustment based on a patient size and exam type, or iterative reconstruction. HISTORY: Dizziness. Daily headaches. Fell 2 weeks ago and hit the right forehead. COMPARISON: 01/31/2012. FINDINGS: No large acute territorial ischemia, mass, or hemorrhage. No midline shift or mass effect. Decreased attenuation is seen in the periventricular and subcortical white matter. The ventricles and cortical sulci are prominent. The basilar cisterns are patent and unremarkable. The orbits are normal. Mucosal thickening is seen in the right maxillary and bilateral ethmoid sinuses. Mastoid air cells are clear. No soft tissue abnormality is seen. No osseus lesions or fractures are seen. IMPRESSION: 1. No large acute territorial ischemia, mass, or hemorrhage. 2. Chronic microvascular disease. 3. Generalized parenchymal volume loss. 4. Mucosal thickening in the right maxillary and bilateral ethmoid sinuses. Dictated by: Dictated on workstation # [id number]
== END ==
LOC: RAD 11:45
PROVIDERS: ATTEND Internal Medicine
DX: R29.6 Repeated falls (principal); I67.9 Cerebrovascular disease, unspecified; G31.9 Degenerative disease of nervous system, unspecified; J32.2 Chronic ethmoidal sinusitis; J32.0 Chronic maxillary sinusitis
CPT/HCPCS: 70450

== ENCOUNTER → 2020-09-03 | Outpatient (CLI) | payer SELFPAY ==
[~2020-09-03] MED LIST changes: +APIX5TAB PO; +CARB1TAB40 PO; +FLUT1DIS26 IH; +FLUT9.9S NS; +GABA300C PO; +IBUP-1780 PO; +LISI-729 PO; +LISI20TA26 PO; +LOVA20TA2 PO; +MIRT-68 PO; +PARO20TA5 PO; +RT-ALBUINH IH; +TIZA-169 PO
== END ==
LOC: CARD 14:30
PROVIDERS: ATTEND Internal Medicine Cardiovascular Disease
DX: I10 Essential (primary) hypertension (principal); I25.10 Atherosclerotic heart disease of native coronary artery without angina pectoris
CPT/HCPCS: 93306

== ENCOUNTER → 2020-12-15 | Outpatient (CLI) | payer OTHER ==
[~2020-12-15] MED LIST changes: +CATHETER FLUSH 10 ML SYR IV PRN; +REGADENOSON 0.4 MG/5 ML SYR (LEXISCAN) IV ONE
[2020-12-15 09:43] VITALS: BP 154/98
[2020-12-15 09:46] VITALS: BP 124/78
[2020-12-15 09:48] VITALS: BP 143/90
--- NOTE | 2020-12-15 12:59 | Cardiology Stress Test Report ---
Stress Test Report Date of Procedure/Referring: Date of Procedure: Dec 15, 2020 PCP Mesfin Dias MD Admitting Physician To Archibald MD Indications: CAD Baseline Heart Rate: 94 Baseline Blood Pressure: Blood Pressure Systolic: 143 Blood Pressure Diastolic: 90 Baseline Vitals Vital Signs Date Time Temp Pulse Resp B/P (MAP) Pulse Ox O2 Delivery O2 Flow Rate FiO2 12/15/20 09:43 96 154/98 (116) 99 Room Air 12/15/20 09:46 18 Baseline EKG: Baseline EKG: NSR Summary After explaining the procedure to the patient, he signed a consent and then brought to the stress nuclear laboratory. Patient received 0.4 mg Lexiscan for stress test, ECG, heart rate and blood pressure were monitored continuously. Resting and stress dose of radio tracer were injected, imaging was acquired and reviewed in short axis, horizontal long axis and vertical long axis views. TID: 1.08 SSS: 3 SDS: 3 EF: 66 1. Patient tolerated Lexiscan well 2. Baseline right bundle branch block persisted during test 3. No significant ischemia or infarction on SPECT images 4. Normal left ventricular size, ejection fraction 66% MESFIN DIAS MD Dec 15, 2020 12:59
== END ==
LOC: CARD 08:25
PROVIDERS: ATTEND Internal Medicine Cardiovascular Disease
DX: I25.10 Atherosclerotic heart disease of native coronary artery without angina pectoris (principal); I10 Essential (primary) hypertension
CPT/HCPCS: 78452; 93017; A9502

== ENCOUNTER → 2021-04-01 | Outpatient (CLI) | payer OTHER ==
[~2021-04-01] MED LIST changes: -CATHETER FLUSH 10 ML SYR IV PRN; -LISI-729 PO; +LISI5TAB20 PO; -REGADENOSON 0.4 MG/5 ML SYR (LEXISCAN) IV ONE
--- NOTE | 2021-04-01 10:27 | Diagnostic Imaging Report ---
INDICATION: Right shoulder pain AP, and oblique views of the right shoulder are obtained. There is no prior study for comparison. No fracture or acute bony abnormality is seen. Glenohumeral joint appears in good alignment and unremarkable. There is moderate degenerative change of the AC joint with moderate spurring. Metallic foreign body seen over the right axillary soft tissues. IMPRESSION: Degenerative findings of the AC joint of moderate severity. No acute fracture or dislocation. Small metallic foreign body overlying the right axillary soft tissues. Dictated by: Dictated on workstation # [id number]
--- NOTE | 2021-04-01 10:31 | Diagnostic Imaging Report ---
INDICATION: Right knee pain AP, and lateral views of the right knee are obtained and compared with 01/25/2015. No acute fracture or acute bony abnormality seen. Old healed fracture deformity of the proximal fibula appears unchanged compared to the prior study. Chronic changes with osteophyte formation of the medial femoral condyle are also stable and unchanged compared to the prior study. There is minimal medial joint space narrowing. There is no overt joint effusion. IMPRESSION: Healed old fracture deformities of the proximal fibula and medial femoral condyle are stable compared to 01/25/2015. There is mild medial joint space narrowing. There is no acute abnormality. Dictated by: Dictated on workstation # [id number]
== END ==
LOC: RAD 09:08
PROVIDERS: ATTEND Family Medicine
DX: Z02.71 Encounter for disability determination (principal); Z18.10 Retained metal fragments, unspecified; M19.011 Primary osteoarthritis, right shoulder; M25.861 Other specified joint disorders, right knee; Z87.81 Personal history of (healed) traumatic fracture
CPT/HCPCS: 73030; 73560

== ENCOUNTER 2021-09-11 20:33 | Emergency (ER) | payer SELFPAY ==
[~2021-09-11] VITALS: Ht 188 cm; Wt 89.8 kg
[~2021-09-11 20:33] MED LIST changes: +OMEP20TA56 PO; -OMEP20TA7 PO
[2021-09-11] MEDS ORDERED: NS IV 1000 ML 1,000 ML ONE (20:40)
[2021-09-11] MEDS ORDERED: NS IV 1000 ML 1,000 ML IV SCH (20:45)
[2021-09-11] MEDS ORDERED: LACTATED RINGERS 1,000 ML IV ONE (20:45)
[2021-09-11 20:50] LABS: BASOPHILS % (AUTO) 0 % (0-10); EOSINOPHILS # (AUTO) 0.1 10^3/uL (0.0-0.3); EOSINOPHILS % (AUTO) 1 % (0-10); HEMATOCRIT 31 % (40-54); LYMPHOCYTES # (AUTO) 2.5 10^3/uL (1.0-4.0); LYMPHOCYTES % (AUTO) 20 % (12-44); MEAN CORPUSCULAR HEMOGLOBIN 28 pg (25-34); MEAN CORPUSCULAR HGB CONC 35 g/dL (32-36); MEAN CORPUSCULAR VOLUME 79 fL (80-99); MEAN PLATELET VOLUME 11.5 fL (9.0-12.2); MONOCYTES # (AUTO) 0.8 10^3/uL (0.0-1.0); MONOCYTES % (AUTO) 7 % (0-12); NEUTROPHILS # (AUTO) 8.8 10^3/uL (1.8-7.8); NEUTROPHILS % (AUTO) 72 % (42-75); PLATELET COUNT 147 10^3/uL (130-400); WHITE BLOOD COUNT 12.3 10^3/uL (4.3-11.0)
--- NOTE | 2021-09-11 20:58 | Diagnostic Imaging Report ---
PROCEDURE: CT head w/o r/o stroke. TECHNIQUE: Multiple contiguous axial images were obtained through the brain without the use of intravenous contrast. Auto Exposure Controls were utilized during the CT exam to meet ALARA standards for radiation dose reduction. INDICATION: Neurodeficit, stroke. COMPARISON: 04/07/2020. FINDINGS: Mild atrophy. No intracranial hemorrhage. No intracranial mass, mass effect, midline shift, herniation, hydrocephalus or extra-axial fluid collection. Periventricular and subcortical white matter hypodensities are present, most consistent with minimal background chronic small vessel white matter ischemic disease. No definite CT evidence of an acute ischemic infarction. Mild background vascular calcifications. The orbits are unremarkable. Mild contusion involving the forehead and frontal scalp midline extending to the left. Mucous retention cyst within the left maxillary sinus. The paranasal sinuses are otherwise clear. The calvarium is intact. IMPRESSION: 1. No acute intracranial abnormality with mild atrophy and minimal background chronic small vessel white matter ischemic disease. 2. Contusion and abrasion associated with the midline frontal scalp and forehead extending to the left without underlying calvarial fracture. 3. If there remains clinical concern for underlying recent infarction, further evaluation with MRI would be recommended. Findings called to the Emergency Department and relayed to the nurse at 2054 on 09/11/2021. Dictated by: Dictated on workstation # [id number]
--- NOTE | 2021-09-11 21:01 | Diagnostic Imaging Report ---
INDICATION: Altered mental status, confusion. COMPARISON: 08/07/2020. TECHNIQUE: Single radiograph of the chest dated September 11, 2021. FINDINGS: The cardiac silhouette is within normal limits in size. No significant pulmonary vascular congestion. The lungs are clear. No pleural effusion. No pneumothorax. Round metallic density is seen overlying the soft tissues of the lateral right chest. No acute osseous abnormality. IMPRESSION: 1. Small round metallic density overlying the soft tissues of the lateral right chest wall. This likely relates to an age indeterminate BB. Recommend clinical correlation. This is not definitely visualized on prior imaging in 2017. 2. No additional acute cardiopulmonary abnormality. Dictated by: Dictated on workstation # [id number]
[2021-09-11 21:04] LABS: ALBUMIN 4.1 GM/DL (3.2-4.5); CHLORIDE 73 MMOL/L (98-107); POTASSIUM 3.3 MMOL/L (3.6-5.0)
[2021-09-11 21:05] LABS: AMYLASE 64 U/L (25-125); CALCIUM 9.4 MG/DL (8.5-10.1)
[2021-09-11 21:06] LABS: GLUCOSE 73 MG/DL (70-105); TOTAL PROTEIN 7.7 GM/DL (6.4-8.2)
[2021-09-11 21:07] LABS: CARBON DIOXIDE 17 MMOL/L (21-32); FIBRIN DEGRADATION PRODUCTS 0.36 UG/ML (0.00-0.49); INR 1.3 (0.8-1.4); PROTHROMBIN TIME PATIENT 16.2 SEC (12.2-14.7)
[2021-09-11 21:08] LABS: BILIRUBIN,TOTAL 1.3 MG/DL (0.1-1.0)
[2021-09-11 21:10] LABS: ALKALINE PHOSPHATASE 104 U/L (40-136); CREATININE SERUM 3.84 MG/DL (0.60-1.30); GFR ESTIMATED 18
[2021-09-11 21:11] LABS: BUN/CREATININE RATIO 8
[2021-09-11 21:13] LABS: ALANINE AMINOTRANSFERASE 75 U/L (0-55); MAGNESIUM 1.8 MG/DL (1.6-2.4)
[2021-09-11 21:14] LABS: CREATINE KINASE 1347 U/L (30-200)
[2021-09-11 21:18] LABS: CREATINE KINASE MB 21.4 NG/ML (<6.6)
[2021-09-11 21:21] LABS: ERYTHROCYTE SEDIMENTATION RATE 22 MM/HR (0-30)
--- NOTE | 2021-09-11 21:28 | ED General ---
General Chief Complaint: Altered Mental Status Stated Complaint: FALL Nursing Triage Note: pt to room with [facility]. ems reports pt had several falls today, has had altered mental status, and "mumbled speech." pt has abrasions to forehead that pt family reports is not from today. pt takes eliquisl. pt blood pressure 60s/30s for ems. fluids going on arrival to er Source of Information: EMS, Old Records (ALL PMH IS FROM OLD RECORDS) Exam Limitations: Other (PT WITH ALTERED MENTAL STATUS AND SLURRED SPEECH AND UNABLE TO PROVIDE ANY INFORMATION AT THIS TIME. ) History of Present Illness Date Seen by Provider: Sep 11, 2021 Time Seen by Provider: 20:30 Initial Comments PT ARRIVES VIA EMS FROM HOME--NO FAMILY CAME WITH PT--"NO RIDE"--AND NO ONE CALLED TO CHECK ON PT [facility] CALLED EMS TONIGHT FOR PT WITH ALTERED MENTAL STATUS LAST KNOWN WELL TIME WAS YESTERDAY AROUND 1700 PT HAS HAD MULTIPLE FALLS TODAY--UNKNOWN NUMBER--AND HAS MULTIPLE OLD/SCABBED ABRASIONS TO HEAD AND FOREHEAD THAT WAS REPORTED TO EMS THAT DID NOT OCCUR TODAY PT WITH GARBLED/UNINTELLIGIBLE SPEECH AT THE SCENE PT HAS HISTORY OF ATRIAL FIBRILLATION AND IS PRESCRIBED ELIQUIS, LOSARTAN AND METOPROLOL. WAS DX WITH ATRIAL FIBRILLATION 07/2020 IS UNKNOWN IF HE HAS BEEN TAKING HIS MEDICATIONS PT HAS LONG HISTORY OF ALCOHOLISM WITH HISTORY OF WITHDRAWL SYMPTOMS BUT NO REPORTED HISTORY OF WITHDRAWL SEIZURES, PER OLD RECORDS PER OLD RECORDS, PT HAS ALSO REPEATEDLY REFUSED ANY KIND OF TREATMENT FOR ALCOHOLISM AND HAS HAD NO DESIRE TO STOP DRINKING PT HAS HAD MULTIPLE ALCOHOL LEVELS IN THE UPPER 400'S ON PRIOR VISITS. EMS REPORT THAT THE MALE AT THE SCENE STATES THAT HE THOUGHT THAT PT HAD "4 OR 5" BEERS TODAY, BUT EMS REPORT THAT MALE ALSO WAS UNDER THE INFLUENCE OF ALCOHOL WELL AND APPEARED VERY INTOXICATED WELL. FEMALE AT THE SCENE STATES SHE HAS BEEN IN ANOTHER ROOM ALL DAY AND HAD NOT CHECKED ON PT ALL DAY. EMS REPORT THAT PT POSSIBLY HAD A BRIEF EPISODE OF SEIZURE LIKE ACTIVITY AT THE SCENE, AND PT IS POSSIBLY POST ICTAL. PCP: DR. URBANO/[facility] [place] Allergies and Home Medications Allergies Coded Allergies: NKANo Known Allergies (Unverified Allergy, Mild, 04/20/09) Patient Home Medication List Home Medication List Reviewed: Yes Apixaban (Eliquis) 5 Mg Tablet, 5 MG PO BID Prescribed by: KAMALA ROBERTS on 08/07/20 1618 Review of Systems Review of Systems Constitutional: other (UNABLE TO OBTAIN FROM PT. ) Past Zbhrhmh-Oggyaq-Fotbsm Hx Patient Social History Tobacco Use?: Yes Tobacco type used: Cigarettes Smoking Status: Current Everyday Smoker Alcohol Use?: Yes Alcohol Frequency: Daily Immunizations Up To Date Tetanus Booster (TDap): Unknown Seasonal Allergies Seasonal Allergies: No Past Medical History Surgeries: No Respiratory: No Currently Using CPAP: No Currently Using BIPAP: No Cardiac: Yes (RBBB;QUESTIONABLE HISTORY OF HTN-POSSIBLY RELATED TO ETOH WITHDRAWL??) Atrial Fibrillation, Hypertension Neurological: No Reproductive Disorders: No Genitourinary: Yes (enlarged prostate ) Benign Prostatic Hyperpl, Prostate Problems Gastrointestinal: Yes Liver Disease/Jaundice, Chronic Diarrhea, Cirrhosis Musculoskeletal: No Endocrine: No HEENT: No Cancer: No Psychosocial: Yes (POLYSUBSTANCE ABUSE--ALCOHOL + DRUGS) Anxiety Integumentary: No Blood Disorders: No Adverse Reaction/Blood Tranf: No Family Medical History No Pertinent Family Hx HISTORY OF D.T.'S WITH ALCOHOL WITHDRAWL, BUT NO HISTORY OF ALCOHOL WITHDRAWL SEIZURES. PT HAS REPEATEDLY REFUSED ANY KIND OF ALCOHOL TREATMENT AND HAS NO DESIRE TO STOP DRINKING. SOCIAL HISTORY: -SMOKES > 1 PPD -ETOH--VERY HEAVY, DAILY USE SINCE AGE 17 -DRUGS--HX OF SMOKING METH, THC. Physical Exam Vital Signs Vital Signs - First Documented 09/11/21 20:33 Temp 36.2 Pulse 85 Resp 15 B/P (MAP) 70/34 (46) Pulse Ox 98 Capillary Refill : Height, Weight, BMI Height: 6'1.00" Weight: 198lbs. 0.0oz. [id number]; 25.00 BMI Method:Stated General Appearance: Other (FILTHY, UNKEMPT, MALODOROUS, BAREFOOT. CONVERED IN ANIMAL HAIR. PT IS LETHARGIC, IS NOT TALKING, MAKES MINIMAL EFFORT TO FOLLOW ANY SIMPLE COMMANDS. ) HEENT: PERRL/EOMI, Other (EXTENSIVE OLD, SCABBED ABRASIONS TO FOREHEAD AND SCALP. VARIOUS SIZES AND AGES, NONE APPEAR NEW TODAY. ) Neck: Normal Inspection Respiratory: Normal Breath Sounds, No Accessory Muscle Use, No Respiratory Distress Cardiovascular: No Murmur, Irregularly Irregular Gastrointestinal: Non Tender, Soft Extremity: Normal Capillary Refill, No Pedal Edema Neurologic/Psychiatric: Other (MENTATION NOTED ABOVE. GROSS MOTOR/SENSORY IS INTACT, AND PT IS MOVING ALL EXTREMITIES, BUT VERY MINIMAL EFFORT. ) Skin: Normal Color, Warm/Dry, Tattoos/Piercings (EXTENSIVE TATTOOS), Other (SCABBED WOUNDS NOTED ABOVE) Focused Exam Sepsis Stage: Ruled Out Reason for ruling out sepsis: DOES NOT MEET CRITERIA Possible Source: Unknown Lactate Level 09/11/21 21:04: Lactic Acid Level 4.17*H Time of Focused Exam: 21:00 Respiratory: Normal Breath Sounds, No Accessory Muscle Use, No Respiratory Distress Cardiovascular: Irregularly Irregular Capillary Refill: Less Than 3 Seconds Skin: normal color, warm/dry Lactic Acid Level Laboratory Tests Test 09/11/21 21:04 Lactic Acid Level 4.17 MMOL/L (0.50-2.00) *H Within 3hrs of presentation: Admin fluids, Blood cultures prior to ABX's, Focus exam, Lactate level, Other (NO ANTIBIOTICS GIVEN PT IS NOT SEPTIC OR HAVE ANY SIGNS OF INFECTION) Progress/Results/Core Measures Suspected Sepsis SIRS Temperature: Pulse: 85 Respiratory Rate: 15 Laboratory Tests 09/11/21 20:38: White Blood Count 12.3H Blood Pressure 70 /34 Mean: 46 09/11/21 21:04: Lactic Acid Level 4.17*H Laboratory Tests 09/11/21 20:38: Creatinine 3.84H, INR Comment 1.3, Platelet Count 147, Total Bilirubin 1.3H Results/Orders Lab Results Laboratory Tests Test 09/11/21 20:38 09/11/21 20:57 09/11/21 21:04 09/11/21 21:10 Range/Units White Blood Count 12.3 H 4.3-11.0 10^3/uL Red Blood Count 3.98 L 4.30-5.52 10^6/uL Hemoglobin 11.0 L 13.3-17.7 g/dL Hematocrit 31 L 40-54 % Mean Corpuscular Volume 79 L 80-99 fL Mean Corpuscular Hemoglobin 28 25-34 pg Mean Corpuscular Hemoglobin Concent 35 32-36 g/dL Red Cell Distribution Width 17.2 H 10.0-14.5 % Platelet Count 147 130-400 10^3/uL Mean Platelet Volume 11.5 9.0-12.2 fL Immature Granulocyte % (Auto) 1 % Neutrophils (%) (Auto) 72 42-75 % Lymphocytes (%) (Auto) 20 12-44 % Monocytes (%) (Auto) 7 0-12 % Eosinophils (%) (Auto) 1 0-10 % Basophils (%) (Auto) 0 0-10 % Neutrophils # (Auto) 8.8 H 1.8-7.8 10^3/uL Lymphocytes # (Auto) 2.5 1.0-4.0 10^3/uL Monocytes # (Auto) 0.8 0.0-1.0 10^3/uL Eosinophils # (Auto) 0.1 0.0-0.3 10^3/uL Basophils # (Auto) 0.0 0.0-0.1 10^3/uL Immature Granulocyte # (Auto) 0.1 0.0-0.1 10^3/uL Erythrocyte Sedimentation Rate 22 0-30 MM/HR Prothrombin Time 16.2 H 12.2-14.7 SEC INR Comment 1.3 0.8-1.4 Activated Partial Thromboplast Time 35 24-35 SEC D-Dimer 0.36 0.00-0.49 UG/ML Sodium Level 118 *L 135-145 MMOL/L Potassium Level 3.3 L 3.6-5.0 MMOL/L Chloride Level 73 L 98-107 MMOL/L Carbon Dioxide Level 17 L 21-32 MMOL/L Anion Gap 28 H 5-14 MMOL/L Blood Urea Nitrogen 30 H 7-18 MG/DL Creatinine 3.84 H 0.60-1.30 MG/DL Estimat Glomerular Filtration Rate 18 BUN/Creatinine Ratio 8 Glucose Level 73 70-105 MG/DL Calcium Level 9.4 8.5-10.1 MG/DL Corrected Calcium 9.3 8.5-10.1 MG/DL Magnesium Level 1.8 1.6-2.4 MG/DL Total Bilirubin 1.3 H 0.1-1.0 MG/DL Aspartate Amino Transf (AST/SGOT) 127 H 5-34 U/L Alanine Aminotransferase (ALT/SGPT) 75 H 0-55 U/L Alkaline Phosphatase 104 40-136 U/L Lactate Dehydrogenase 292 H 125-220 U/L Total Creatine Kinase 1347 H 30-200 U/L Creatine Kinase MB 21.4 *H <6.6 NG/ML Myoglobin 4245.4 H 10.0-92.0 NG/ML Troponin I < 0.028 <0.028 NG/ML C-Reactive Protein High Sensitivity 0.53 H 0.00-0.50 MG/DL B-Type Natriuretic Peptide 75.7 <100.0 PG/ML Total Protein 7.7 6.4-8.2 GM/DL Albumin 4.1 3.2-4.5 GM/DL Amylase Level 64 25-125 U/L Procalcitonin 1.05 H <0.10 NG/ML Serum Alcohol 186 H <10 MG/DL Glucometer 104 70-110 MG/DL Lactic Acid Level 4.17 *H 0.50-2.00 MMOL/L Influenza Type A (RT-PCR) Not Detected Not Detecte Influenza Type B (RT-PCR) Not Detected Not Detecte SARS-CoV-2 RNA (RT-PCR) Not Detected Not Detecte My Orders Orders - NILA SANCHES DO Lactated Ringers (Lr 1000 Ml Iv Solution (09/11/21 20:45) Cbc With Automated Diff (09/11/21 20:34) Protime With Inr (09/11/21 20:34) Partial Thromboplastin Time (09/11/21 20:34) Comprehensive Metabolic Panel (09/11/21 20:34) Fibrin Degradation Products (09/11/21 20:34) Troponin I Raegan (09/11/21 20:34) Chest 1 View, Ap/Pa Only (09/11/21 20:34) Catheter(Urinary) Insert & Ass 03,15 (09/11/21 20:34) Ekg Tracing (09/11/21 20:34) Accucheck Stat ONCE (09/11/21 20:34) Ed Iv/Invasive Line Start (09/11/21 20:34) Ed Iv/Invasive Line Start (09/11/21 20:34) Vital Signs Stroke Patient Q15M (09/11/21 20:34) Ct Head Wo-R/O Stroke (09/11/21 20:34) O2 (09/11/21 20:34) Intake & Output 06,14,22 (09/11/21 20:34) Monitor-Rhythm Ecg Trace Only (09/11/21 20:34) Dysphagia Screening Tool Q10MX1 (09/11/21 20:34) Procalcitonin (Pct) (09/11/21 20:34) Hs C Reactive Protein (09/11/21 20:34) Erythrocyte Sedimentation Rate (09/11/21 20:34) LDH (09/11/21 20:34) Covid 19 Inhouse Test (09/11/21 20:34) Blood Culture (09/11/21 20:34) Ed Iv/Invasive Line Start (09/11/21 20:34) Ed Iv/Invasive Line Start (09/11/21 20:34) Vital Signs Adult Sepsis Patie Q15M (09/11/21 20:34) O2 (09/11/21 20:34) Remove Rings In Anticipation O (09/11/21 20:34) Lactic Acid Analyzer (09/11/21 20:34) Influenza A And B By Pcr (09/11/21 20:34) Isolation Central Supply Req (09/11/21 20:34) Alcohol (09/11/21 20:38) Amylase (09/11/21 20:38) Bnp Raegan (09/11/21 20:38) Creatine Kinase (09/11/21 20:38) Creatine Kinase Mb (09/11/21 20:38) Magnesium (09/11/21 20:38) Ed Iv/Invasive Line Start (09/11/21 20:39) Ns Iv 1000 Ml (Sodium Chloride 0.9%) (09/11/21 20:45) Myoglobin Serum (09/11/21 20:38) Ns Iv 1000 Ml (Sodium Chloride 0.9%) (09/11/21 20:40) Medications Given in ED Vital Signs/I&O 09/11/21 09/11/21 20:33 21:55 Temp 36.2 Pulse 85 90 Resp 15 16 B/P (MAP) 70/34 (46) 113/93 Pulse Ox 98 96 Capillary Refill : Blood Pressure Mean: 46 Point of Care Testing Finger Stick Blood Glucose: 104 Blood Glucose Action Taken: notified Progress Note : Progress Note STROKE, COVID AND SEPSIS PROTOCOLS INITIATED ON ARRIVAL, BASED ON INFORMATION FROM EMS GIVEN IV FLUIDS INITIAL SODIUM LEVEL WAS 113. BLOOD WAS RE-DRAWN ( AFTER PT HAS RECEIVED IV FLUIDS) AND REPEAT SODIUM LEVEL IS 118. PT HAS REFUSED CATHETER AND REFUSES TO ATTEMPT TO GIVE URINE SPECIMEN ON RETURN FROM CT, PT IS VERY ALERT, TALKING WITH CLEAR SPEECH, ORIENTED X 4. PT STATING HE WANTS TO LEAVE AND "SIGN OUT AMA" ( PT IS FAMILIAR WITH THE TERM AMA) STRESSED THE IMPORTANCE OF STAYING, AND BENEFITS OF STAYING , WELL RISKS OF LEAVING, INCLUDING , AND PT REPEATS MULTIPLE TIMES TO ME AND RN, THAT HE DOES NOT WANT TO STAY--STATES "I GOT THINGS I GOTTA DO" AND STATES "I GOTTA GO TO THE PARK TOMORROW"-TO SEE FIREWORKS. EMPHATICALLY URGED PT TO STAY, AND HE ADAMANTLY REFUSES, DESPITE REVIEWING RISKS, AND PT REPEATS "I AIN'T GONNA " PT HAS CLEAR SPEECH AND STEADY GAIT AND IS COMPLETELY ORIENTED HE WALKS OUT OF ER ECG Initial ECG Impression Date: Sep 11, 2021 Initial ECG Impression Time: 20:58 Initial ECG Rate: 84 Initial ECG Rhythm: Normal Sinus (RBBB) Diagnostic Imaging Comments CXR--PER RADIOLOGIST REPORT FINDINGS: The cardiac silhouette is within normal limits in size. No significant pulmonary vascular congestion. The lungs are clear. No pleural effusion. No pneumothorax. Round metallic density is seen overlying the soft tissues of the lateral right chest. No acute osseous abnormality. IMPRESSION: 1. Small round metallic density overlying the soft tissues of the lateral right chest wall. This likely relates to an age indeterminate BB. Recommend clinical correlation. This is not definitely visualized on prior imaging in 2017. 2. No additional acute cardiopulmonary abnormality. CT HEAD--PER RADIOLOGIST VIA PHONE AND DICTATED REPORT AT 2057 COMPARISON: 04/07/2020. FINDINGS: Mild atrophy. No intracranial hemorrhage. No intracranial mass, mass effect, midline shift, herniation, hydrocephalus or extra-axial fluid collection. Periventricular and subcortical white matter hypodensities are present, most consistent with minimal background chronic small vessel white matter ischemic disease. No definite CT evidence of an acute ischemic infarction. Mild background vascular calcifications. The orbits are unremarkable. Mild contusion involving the forehead and frontal scalp midline extending to the left. Mucous retention cyst within the left maxillary sinus. The paranasal sinuses are otherwise clear. The calvarium is intact. IMPRESSION: 1. No acute intracranial abnormality with mild atrophy and minimal background chronic small vessel white matter ischemic disease. 2. Contusion and abrasion associated with the midline frontal scalp and forehead extending to the left without underlying calvarial fracture. 3. If there remains clinical concern for underlying recent infarction, further evaluation with MRI would be recommended. Reviewed: Reviewed by Me Departure Impression Primary Impression: Left against medical advice Additional Impressions: Altered mental status Alcohol intoxication in active alcoholic Chronic atrial fibrillation Acute renal failure Multiple falls MULTIPLE FALLS SEVERE HYPONATREMIA POSSIBLE SEIZURE ACTIVITY Rhabdomyolysis Disposition: AGAINST MEDICAL ADVICE Condition: Against Medical Advice Departure-Patient Inst. Referrals: KEVYN URBANO MD (PCP/Family) Primary Care Physician NILA SANCHES DO Sep 11, 2021 21:28
[2021-09-11 21:52] LABS: SODIUM 118 MMOL/L (135-145)
[2021-09-11 21:55] VITALS: BP 113/93
== END 2021-09-11 22:15 | disposition left against medical advice (07) ==
LOC: EDUNIT# 20:33 → ER 20:36
DX: F10.129 Alcohol abuse with intoxication, unspecified (principal); I48.20 Chronic atrial fibrillation, unspecified; N17.9 Acute kidney failure, unspecified; E87.1 Hypo-osmolality and hyponatremia; M62.82 Rhabdomyolysis; R41.82 Altered mental status, unspecified; R29.6 Repeated falls; I48.91 Unspecified atrial fibrillation; F17.210 Nicotine dependence, cigarettes, uncomplicated; Z79.01 Long term (current) use of anticoagulants
CPT/HCPCS: 70450; 71045; 80053; 82150; 82550; 82553; 82947; 83605; 83615; 83735; 83874; 83880; 84145; 84484; 85025; 85379; 85610; 85652; 85730; 86141; 87040; 87636; 93041; 99284; G0480; 36415; 80320; 93005

== ENCOUNTER 2021-09-28 09:44 | Emergency (ER) | payer SELFPAY ==
[~2021-09-28] VITALS: Ht 185.4 cm; Wt 89.8 kg
[2021-09-28] MEDS ORDERED: NS IV 500 ML 500 ML IV STA (10:18)
--- NOTE | 2021-09-28 10:24 | ED Fall/Injury ---
General Chief Complaint: Head/Cervical Problems Stated Complaint: FELL, HIT HEAD X 1 WEEK AGO Nursing Triage Note: PT AMB TO RM 5. PT STATED THAT HE FELL A WEEK AGO AND HIT HIS HEAD AND CAME TO THE ER AND LEFT AMA AND FELL AGAIN AFTER LEAVING THE HOSPITAL. HE WENT TO [facility] TODAY AND THEY RECOMMEND HE COME BACK TO THE ER. PT STATED THAT HE TOOK PAIN MEDS TODAY BUT DOES NOT KNOW WHAT THEY ARE. Source: patient, RN/MD Exam Limitations: no limitations History of Present Illness Date Seen by Provider: Sep 28, 2021 Time Seen by Provider: 09:51 Initial Comments 55-year-old male with past medical history of paroxysmal A. fib on Eliquis, alcohol use disorder, and polysubstance abuse most notably coming in as a referral from the walk-in clinic due to concerns for falls. The patient was seen in our emergency department early September after he had a couple falls. He had a CT head which was normal with no acute bleeds. His sodium was very low around 118, creatinine very elevated, and he was recommended to be admitted to the hospital. The patient was signed out AGAINST MEDICAL ADVICE. He says he fell again later that night and hit his head. He denies having any more recent falls since then. He continues to take his blood thinners with the most recent dose this morning. He is having constant throbbing headaches more on the right side of his head which is moderate to severe. Nothing seems to make it better or worse. He also has a hemorrhage in his right thigh that he has been worried about has not changed at all. He has been slowing down on his alcohol intake, and had roughly 2-1/2 beers last night. He says he does not feel like he is withdrawing. Also having some left-sided chest wall pain from where he fell. Otherwise denying any shortness of breath, abdominal pain, nausea, vomiting, diarrhea, fever, chills, focal weakness or numbness, vision changes, or any other concerns. Allergies and Home Medications Allergies Coded Allergies: NKANo Known Allergies (Unverified Allergy, Mild, 04/20/09) Patient Home Medication List Home Medication List Reviewed: Yes Apixaban (Eliquis) 5 Mg Tablet, 5 MG PO BID Prescribed by: KAMALA ROBERTS on 08/07/20 8998 Review of Systems Review of Systems Constitutional: No fever Eyes: Denies Blurred Vision Ears, Nose, Mouth, Throat: see HPI Respiratory: no symptoms reported Cardiovascular: no symptoms reported Gastrointestinal: no symptoms reported Genitourinary: no symptoms reported Musculoskeletal: see HPI Skin: other (Bruising) Psychiatric/Neurological: No Symptoms Reported All Other Systems Reviewed Negative Unless Noted: Yes Past Hkfrfha-Frctoh-Eigbvk Hx Patient Social History Tobacco Use?: No Substance use?: No Alcohol Use?: Yes Alcohol Frequency: Once in a while Pt feels they are or have been: Unable to obtain Immunizations Up To Date Tetanus Booster (TDap): Unknown Influenza Vaccine Up-to-Date: No; Not Current Seasonal Allergies Seasonal Allergies: No Past Medical History Surgeries: No Respiratory: No Currently Using CPAP: No Currently Using BIPAP: No Cardiac: Yes (RBBB;QUESTIONABLE HISTORY OF HTN-POSSIBLY RELATED TO ETOH WITHDRAWL??) Atrial Fibrillation, Hypertension Neurological: No Reproductive Disorders: No Genitourinary: Yes (enlarged prostate ) Benign Prostatic Hyperpl, Prostate Problems Gastrointestinal: Yes Liver Disease/Jaundice, Chronic Diarrhea, Cirrhosis Musculoskeletal: No Endocrine: No HEENT: No Cancer: No Psychosocial: Yes (POLYSUBSTANCE ABUSE--ALCOHOL + DRUGS) Anxiety Integumentary: No Blood Disorders: No Adverse Reaction/Blood Tranf: No Family Medical History No Pertinent Family Hx HISTORY OF D.T.'S WITH ALCOHOL WITHDRAWL, BUT NO HISTORY OF ALCOHOL WITHDRAWL SEIZURES. PT HAS REPEATEDLY REFUSED ANY KIND OF ALCOHOL TREATMENT AND HAS NO DESIRE TO STOP DRINKING. SOCIAL HISTORY: -SMOKES > 1 PPD -ETOH--VERY HEAVY, DAILY USE SINCE AGE 17 -DRUGS--HX OF SMOKING METH, THC. Physical Exam Vital Signs Vital Signs - First Documented 09/28/21 09/28/21 09:52 12:53 Temp 35.6 Pulse 97 Resp 14 B/P (MAP) 106/64 (78) Pulse Ox 100 O2 Delivery Room Air Capillary Refill : Less Than 3 Seconds Height, Weight, BMI Height: 6'1.00" Weight: 198lbs. 0.0oz. [id number]; 26.00 BMI Method:Stated General Appearance: no apparent distress, other (Bruising and swelling thro ughout his forehead, underneath his eyes) HEENT: PERRL/EOMI, pharynx normal, other (Subconjunctival hemorrhage on the right) Neck: non-tender, full range of motion, supple, normal inspection Cardiovascular: regular rate, rhythm, no edema, no murmur, other (Chest wall pain on the left) Respiratory: chest non-tender, lungs clear, normal breath sounds, no respiratory distress, no accessory muscle use Gastrointestinal: normal bowel sounds, non tender, soft; No distended, No guarding, No rebound Back: normal inspection, no CVA tenderness, no vertebral tenderness Extremities: normal range of motion, non-tender, normal inspection, no pedal edema, no calf tenderness, normal capillary refill Neurologic/Psychiatric: head baggage porter II-XII nml as tested, no motor/sensory deficits, alert, normal mood/affect, oriented x 3, other (Normal gait) Skin: normal color, warm/dry, other (Scattered bruising but most notably along his forehead and around his eyes) Lymphatic: no adenopathy Eddie Coma Score Best Eye Response: (4) Open Spontaneously Best Verbal Response: (5) Oriented Best Motor Response: (6) Obeys Commands Progress/Results/Core Measures Results/Orders Lab Results Laboratory Tests Test 09/28/21 10:15 09/28/21 11:31 Range/Units White Blood Count 6.8 4.3-11.0 10^3/uL Red Blood Count 3.77 L 4.30-5.52 10^6/uL Hemoglobin 11.0 L 13.3-17.7 g/dL Hematocrit 33 L 40-54 % Mean Corpuscular Volume 86 80-99 fL Mean Corpuscular Hemoglobin 29 25-34 pg Mean Corpuscular Hemoglobin Concent 34 32-36 g/dL Red Cell Distribution Width 19.1 H 10.0-14.5 % Platelet Count 171 130-400 10^3/uL Mean Platelet Volume 9.3 9.0-12.2 fL Immature Granulocyte % (Auto) 1 % Neutrophils (%) (Auto) 65 42-75 % Lymphocytes (%) (Auto) 19 12-44 % Monocytes (%) (Auto) 11 0-12 % Eosinophils (%) (Auto) 3 0-10 % Basophils (%) (Auto) 1 0-10 % Neutrophils # (Auto) 4.4 1.8-7.8 10^3/uL Lymphocytes # (Auto) 1.3 1.0-4.0 10^3/uL Monocytes # (Auto) 0.7 0.0-1.0 10^3/uL Eosinophils # (Auto) 0.2 0.0-0.3 10^3/uL Basophils # (Auto) 0.1 0.0-0.1 10^3/uL Immature Granulocyte # (Auto) 0.1 0.0-0.1 10^3/uL Prothrombin Time 15.7 H 12.2-14.7 SEC INR Comment 1.2 0.8-1.4 Activated Partial Thromboplast Time 30 24-35 SEC Sodium Level 131 L 135-145 MMOL/L Potassium Level 3.9 3.6-5.0 MMOL/L Chloride Level 96 L 98-107 MMOL/L Carbon Dioxide Level 21 21-32 MMOL/L Anion Gap 14 5-14 MMOL/L Blood Urea Nitrogen 19 H 7-18 MG/DL Creatinine 1.22 0.60-1.30 MG/DL Estimat Glomerular Filtration Rate 70 BUN/Creatinine Ratio 16 Glucose Level 95 70-105 MG/DL Lactic Acid Level 1.55 0.50-2.00 MMOL/L Calcium Level 9.6 8.5-10.1 MG/DL Corrected Calcium 9.6 8.5-10.1 MG/DL Total Bilirubin 0.5 0.1-1.0 MG/DL Aspartate Amino Transf (AST/SGOT) 76 H 5-34 U/L Alanine Aminotransferase (ALT/SGPT) 41 0-55 U/L Alkaline Phosphatase 166 H 40-136 U/L Total Protein 7.8 6.4-8.2 GM/DL Albumin 4.0 3.2-4.5 GM/DL Lipase 28 8-78 U/L Serum Alcohol < 10 <10 MG/DL Urine Color YELLOW Urine Clarity CLEAR Urine pH 6.5 5-9 Urine Specific [place] <=1.005 1.016-1.022 Urine Protein NEGATIVE NEGATIVE Urine Glucose (UA) NEGATIVE NEGATIVE Urine Ketones NEGATIVE NEGATIVE Urine Nitrite NEGATIVE NEGATIVE Urine Bilirubin NEGATIVE NEGATIVE Urine Urobilinogen 0.2 < = 1.0 MG/DL Urine Leukocyte Esterase NEGATIVE NEGATIVE Urine RBC (Auto) NEGATIVE NEGATIVE Urine RBC NONE /HPF Urine WBC RARE /HPF Urine Squamous Epithelial Cells 0-2 /HPF Urine Crystals NONE /LPF Urine Bacteria NEGATIVE /HPF Urine Casts PRESENT /LPF Urine Hyaline Casts 0-2 H /LPF Urine Mucus NEGATIVE /LPF Urine Culture Indicated NO Urine Opiates Screen NEGATIVE NEGATIVE Urine Oxycodone Screen NEGATIVE NEGATIVE Urine Methadone Screen NEGATIVE NEGATIVE Urine Propoxyphene Screen NEGATIVE NEGATIVE Urine Barbiturates Screen NEGATIVE NEGATIVE Ur Tricyclic Antidepressants Screen NEGATIVE NEGATIVE Urine Phencyclidine Screen NEGATIVE NEGATIVE Urine Amphetamines Screen POSITIVE H NEGATIVE Urine Methamphetamines Screen POSITIVE H NEGATIVE Urine Benzodiazepines Screen NEGATIVE NEGATIVE Urine Cocaine Screen NEGATIVE NEGATIVE Urine Cannabinoids Screen NEGATIVE NEGATIVE My Orders Orders - KYRA BAEZA MD Ct Chest Wo (09/28/21 10:18) Ed Iv/Invasive Line Start (09/28/21 10:18) Ekg Tracing (09/28/21 10:18) Monitor-Rhythm Ecg Trace Only (09/28/21 10:18) Alcohol (09/28/21 10:18) Cbc With Automated Diff (09/28/21 10:18) Comprehensive Metabolic Panel (09/28/21 10:18) Drug Screen Stat (Urine) (09/28/21 10:18) Lactic Acid Analyzer (09/28/21 10:18) Lipase (09/28/21 10:18) Protime With Inr (09/28/21 10:18) Partial Thromboplastin Time (09/28/21 10:18) Ua Culture If Indicated (09/28/21 10:18) Blood Culture (09/28/21 10:18) Ns Iv 500 Ml (Sodium Chloride 0.9%) (09/28/21 10:18) Ct Head/Face/Cervical Wo (09/28/21 10:24) Ketorolac Injection (Toradol Injection) (09/28/21 12:30) Acetaminophen Tablet/Caplet (Tylenol T (09/28/21 12:30) Medications Given in ED Current Medications Medications Dose Ordered Sig/Nan Route Start Time Stop Time Status Last Admin Dose Admin Acetaminophen 650 mg ONCE ONCE PO 09/28/21 12:30 09/28/21 12:31 DC 09/28/21 12:42 650 MG Ketorolac Tromethamine 15 mg ONCE ONCE IVP 09/28/21 12:30 09/28/21 12:31 DC 09/28/21 12:41 15 MG Vital Signs/I&O 09/28/21 09/28/21 09:52 12:53 Temp 35.6 Pulse 97 108 Resp 14 16 B/P (MAP) 106/64 (78) 99/75 Pulse Ox 100 O2 Delivery Room Air Room Air Blood Pressure Mean: 78 Progress Progress Note : Progress Note 55-year-old male with above history coming in after referral from walk-in clinic. He has not had any recent falls in the past several weeks. An IV was placed and basic labs were obtained. His sodium has corrected itself, creatinine has corrected soft, lactic is better than prior, and overall his lab work is much improved. CT head, face, cervical spine negative for acute abnormalities. CT chest ordered showing 2 acute fractures in the left ribs 9 and 10 with a couple subacute and healing fractures on the right and left as well. I would recommend Tylenol for pain control. Patient is wanting to go home which I am amenable to at this point. He was sent home with strict return precautions. Initial ECG Impression Date: Sep 28, 2021 Initial ECG Impression Time: 10:33 Initial ECG Rate: 97 Initial ECG Rhythm: Normal Sinus Comment Wide QRS with a right bundle branch block, no significant ST changes, appears similar to prior EKG Diagnostic Imaging Diagonstic Imaging: CT (head, face, c spine, chest) Comments [facility], [place] NAME: AUDRA ZURITA [facility] REC#: [id number] PT STATUS: REG ER : 1965 PHYSICIAN: KYRA BAEZA MD ADMIT DATE: 09/28/21/ER Signed Date of Exam:09/28/21 CT HEAD/FACE/CERVICAL WO PROCEDURE: CT head, face, and cervical spine without contrast. TECHNIQUE: Multiple contiguous axial images were obtained through the head, neck, and facial bones without the use of intravenous contrast. Sagittal and coronal reformations through the cervical spine and facial bones were also performed. Auto Exposure Controls were utilized during the CT exam to meet ALARA standards for radiation dose reduction. INDICATION: Fall. Head and neck pain. Facial bruising. COMPARISON: 09/11/2021. FINDINGS: CT head: The ventricles and cortical sulci are prominent. There is no midline shift or mass-effect. No acute intracranial hemorrhage is seen. There is no CT evidence of acute territorial ischemia. Scattered chronic microvascular disease is seen in the periventricular and subcortical white matter No focal masses or collections are present. The calvarium is intact. Contusion is seen overlying the forehead right of midline. CT face: No acute facial fractures are visualized. The mandible, zygomatic arches, and pterygoid plates are intact. The bilateral TMJ demonstrate normal articulation. No nasal bone fractures. The bony nasal septum is slightly deviated to the right without fracture. Retained secretions are seen in the bilateral maxillary sinuses, right anterior ethmoid sinuses, and right frontal sinus. The mastoid air cells are well pneumatized. The globes and orbits are symmetric and unremarkable. No evidence of orbital rim fracture. CT cervical spine: No acute fracture or dislocation is seen in the cervical spine. No focal osseous lesions. Vertebral body heights are well-maintained. The craniocervical junction is well-maintained. Soft tissues of the neck are unremarkable. The included lung apices are clear. IMPRESSION: 1. No hemorrhage or focal intra-axial mass. No CT evidence of large acute territorial ischemia. 2. No acute fracture or dislocation in the cervical spine. 3. No acute facial fractures. 4. Scalp contusion overlying the forehead right of midline. No associated calvarial fracture. 5. Paranasal sinus disease involving the right frontal sinus, right anterior ethmoid sinuses, and bilateral maxillary sinuses. Dictated by: Dictated on workstation # [id number] Dict: 09/28/21 1127 Trans: 09/28/21 1158 [facility] [id number] Interpreted by: DENNIS GARCIA DO Electronically signed by: DENNIS GARCIA DO 09/28/21 1158 [facility], [place] NAME: AUDRA ZURITA [facility] REC#: [id number] PT STATUS: REG ER : 1965 PHYSICIAN: KYRA BAEZA MD ADMIT DATE: 09/28/21/ER Draft Date of Exam:09/28/[address] CHEST WO TECHNIQUE: Multiple contiguous axial images were obtained through the chest without the use of intravenous contrast. All CT scans use one or more of the following dose optimizing techniques: automated exposure control, MA and/or KvP adjustment based on a patient size and exam type, or iterative reconstruction. INDICATION: Left-sided chest pain after fall. COMPARISON: CTA chest of 08/05/2020. FINDINGS: Lungs and airway: No abnormality in the trachea. No pneumonia or edema. No features of pulmonary contusion or laceration. Minimal dependent atelectasis on both sides. Pleura: No pleural effusion or pneumothorax. Heart and mediastinum: No features of mediastinal hemorrhage. Assessment for vascular injury is very limited without IV contrast. Thyroid is normal. No supraclavicular or axillary lymphadenopathy. No mediastinal lymphadenopathy or pericardial effusion. Upper abdomen: Stomach is filled with food debris. No acute abnormality in the upper abdomen. Musculoskeletal: Acute minimally displaced fractures in the posterior aspect the left 9th and 10th ribs. There are subacute/healing fractures involving the left 10th, 11th, 7th and 8th ribs. Subacute fractures also present in the anterior aspect of the right 3rd through 6th ribs. No acute fracture within the thoracic spine. No sternal fracture. IMPRESSION: 1. Acute minimally displaced fractures in the posterior aspect of the left 9th and 10th ribs. No pneumothorax. 2. Subacute/healing fractures are present in the anterior right 3rd through 6th ribs and posterolateral left 7th, 8th, 11th and 12th ribs. 3. No pulmonary contusion. Dictated on workstation # [id number] Dict: 09/28/21 1157 Trans: 09/28/21 1216 [id number] [id number] Interpreted by: COREEN CHAMBERS MD Electronically signed by: Focused Exam Lactate Level 09/28/21 10:15: Lactic Acid Level 1.55 Lactic Acid Level Laboratory Tests Test 09/28/21 10:15 Lactic Acid Level 1.55 MMOL/L (0.50-2.00) Departure Impression Primary Impression: Multiple falls Additional Impressions: Rib fracture Qualified Codes: S22.43XA - Multiple fractures of ribs, bilateral, initial encounter for closed fracture Concussion Qualified Codes: S06.0X0D - Concussion without loss of consciousness, subsequent encounter Disposition: 01 HOME, SELF-CARE Condition: Stable Departure-Patient Inst. Decision time for Depature: 12:26 Referrals: [facility]/EMELIA (PCP) Primary Care Physician KEVYN STUART (Family) Primary Care Physician Patient Instructions: Concussion, Adult ED, Rib Fracture (DC) Add. Discharge Instructions: You do not have any type of bleeding in your brain, but you do have a concussion. I recommend Tylenol as needed for headache with plenty of fluids. You can take ibuprofen as well, but be careful because it can hurt your kidneys. The bleeding is seen your eye will take quite some time to absorb, sometimes weeks to months. It is not concerning and not dangerous. Follow-up with your regular doctor in the next couple of days if you are not feeling better Work/School Note: Work Release Form Date Seen in the Emergency Department: Sep 28, 2021 Return to Work: Sep 29, 2021 Restrictions: No Restrictions KYRA BAEZA MD Sep 28, 2021 10:24
[2021-09-28 10:28] LABS: BASOPHILS # (AUTO) 0.1 10^3/uL (0.0-0.1); BASOPHILS % (AUTO) 1 % (0-10); EOSINOPHILS # (AUTO) 0.2 10^3/uL (0.0-0.3); EOSINOPHILS % (AUTO) 3 % (0-10); HEMATOCRIT 33 % (40-54); LYMPHOCYTES # (AUTO) 1.3 10^3/uL (1.0-4.0); LYMPHOCYTES % (AUTO) 19 % (12-44); MEAN CORPUSCULAR HEMOGLOBIN 29 pg (25-34); MEAN CORPUSCULAR HGB CONC 34 g/dL (32-36); MEAN CORPUSCULAR VOLUME 86 fL (80-99); MEAN PLATELET VOLUME 9.3 fL (9.0-12.2); MONOCYTES # (AUTO) 0.7 10^3/uL (0.0-1.0); MONOCYTES % (AUTO) 11 % (0-12); NEUTROPHILS # (AUTO) 4.4 10^3/uL (1.8-7.8); NEUTROPHILS % (AUTO) 65 % (42-75); PLATELET COUNT 171 10^3/uL (130-400); WHITE BLOOD COUNT 6.8 10^3/uL (4.3-11.0)
[2021-09-28 10:44] LABS: INR 1.2 (0.8-1.4); PROTHROMBIN TIME PATIENT 15.7 SEC (12.2-14.7)
[2021-09-28 10:56] LABS: CHLORIDE 96 MMOL/L (98-107); POTASSIUM 3.9 MMOL/L (3.6-5.0); SODIUM 131 MMOL/L (135-145)
[2021-09-28 10:57] LABS: CALCIUM 9.6 MG/DL (8.5-10.1)
[2021-09-28 10:58] LABS: GLUCOSE 95 MG/DL (70-105)
[2021-09-28 10:59] LABS: CARBON DIOXIDE 21 MMOL/L (21-32); TOTAL PROTEIN 7.8 GM/DL (6.4-8.2)
[2021-09-28 11:00] LABS: BILIRUBIN,TOTAL 0.5 MG/DL (0.1-1.0)
[2021-09-28 11:02] LABS: ALKALINE PHOSPHATASE 166 U/L (40-136); CREATININE SERUM 1.22 MG/DL (0.60-1.30); GFR ESTIMATED 70
[2021-09-28 11:03] LABS: BUN/CREATININE RATIO 16
[2021-09-28 11:05] LABS: ALANINE AMINOTRANSFERASE 41 U/L (0-55)
[2021-09-28 11:06] LABS: LIPASE 28 U/L (8-78)
[2021-09-28 11:38] LABS: BILIRUBIN,URINE NEGATIVE (NEGATIVE); CLARITY,URINE CLEAR; COLOR,URINE YELLOW; GLUCOSE, URINE (UA) NEGATIVE (NEGATIVE); KETONES,URINE NEGATIVE (NEGATIVE); LEUKOCYTE ESTERASE ,URINE NEGATIVE (NEGATIVE); NITRITE,URINE NEGATIVE (NEGATIVE); PH,URINE 6.5 (5-9); PROTEIN,URINE NEGATIVE (NEGATIVE)
--- NOTE | 2021-09-28 11:42 | Diagnostic Imaging Report ---
PROCEDURE: CT head, face, and cervical spine without contrast. TECHNIQUE: Multiple contiguous axial images were obtained through the head, neck, and facial bones without the use of intravenous contrast. Sagittal and coronal reformations through the cervical spine and facial bones were also performed. Auto Exposure Controls were utilized during the CT exam to meet ALARA standards for radiation dose reduction. INDICATION: Fall. Head and neck pain. Facial bruising. COMPARISON: 09/11/2021. FINDINGS: CT head: The ventricles and cortical sulci are prominent. There is no midline shift or mass-effect. No acute intracranial hemorrhage is seen. There is no CT evidence of acute territorial ischemia. Scattered chronic microvascular disease is seen in the periventricular and subcortical white matter No focal masses or collections are present. The calvarium is intact. Contusion is seen overlying the forehead right of midline. CT face: No acute facial fractures are visualized. The mandible, zygomatic arches, and pterygoid plates are intact. The bilateral TMJ demonstrate normal articulation. No nasal bone fractures. The bony nasal septum is slightly deviated to the right without fracture. Retained secretions are seen in the bilateral maxillary sinuses, right anterior ethmoid sinuses, and right frontal sinus. The mastoid air cells are well pneumatized. The globes and orbits are symmetric and unremarkable. No evidence of orbital rim fracture. CT cervical spine: No acute fracture or dislocation is seen in the cervical spine. No focal osseous lesions. Vertebral body heights are well-maintained. The craniocervical junction is well-maintained. Soft tissues of the neck are unremarkable. The included lung apices are clear. IMPRESSION: 1. No hemorrhage or focal intra-axial mass. No CT evidence of large acute territorial ischemia. 2. No acute fracture or dislocation in the cervical spine. 3. No acute facial fractures. 4. Scalp contusion overlying the forehead right of midline. No associated calvarial fracture. 5. Paranasal sinus disease involving the right frontal sinus, right anterior ethmoid sinuses, and bilateral maxillary sinuses. Dictated by: Dictated on workstation # [id number]
[2021-09-28 11:58] LABS: AMPHETAMINE SCREEN, URINE POSITIVE (NEGATIVE); BARBITURATE SCREEN URINE NEGATIVE (NEGATIVE); BENZODIAZEPINES SCREEN URINE NEGATIVE (NEGATIVE); CANNABINOID SCREEN, URINE NEGATIVE (NEGATIVE); COCAINE SCREEN URINE NEGATIVE (NEGATIVE); METHADONE STAT NEGATIVE (NEGATIVE); OPIATE SCREEN URINE NEGATIVE (NEGATIVE); OXYCODONE STAT NEGATIVE (NEGATIVE); PROPOXYPHENE STAT NEGATIVE (NEGATIVE); TRICYCLIC ANTIDEPRESSANTS SCRE NEGATIVE (NEGATIVE)
[2021-09-28 11:59] LABS: BACTERIA,URINE NEGATIVE /HPF; HYALINE CASTS, URINE 0-2 /LPF; SQUAMOUS EPITHELIAL CELL,UR 0-2 /HPF; WBC,URINE RARE /HPF
--- NOTE | 2021-09-28 12:16 | Diagnostic Imaging Report ---
CT CHEST WO TECHNIQUE: Multiple contiguous axial images were obtained through the chest without the use of intravenous contrast. All CT scans use one or more of the following dose optimizing techniques: automated exposure control, MA and/or KvP adjustment based on a patient size and exam type, or iterative reconstruction. INDICATION: Left-sided chest pain after fall. COMPARISON: CTA chest of 08/05/2020. FINDINGS: Lungs and airway: No abnormality in the trachea. No pneumonia or edema. No features of pulmonary contusion or laceration. Minimal dependent atelectasis on both sides. Pleura: No pleural effusion or pneumothorax. Heart and mediastinum: No features of mediastinal hemorrhage. Assessment for vascular injury is very limited without IV contrast. Thyroid is normal. No supraclavicular or axillary lymphadenopathy. No mediastinal lymphadenopathy or pericardial effusion. Upper abdomen: Stomach is filled with food debris. No acute abnormality in the upper abdomen. Musculoskeletal: Acute minimally displaced fractures in the posterior aspect the left 9th and 10th ribs. There are subacute/healing fractures involving the left 10th, 11th, 7th and 8th ribs. Subacute fractures also present in the anterior aspect of the right 3rd through 6th ribs. No acute fracture within the thoracic spine. No sternal fracture. IMPRESSION: 1. Acute minimally displaced fractures in the posterior aspect of the left 9th and 10th ribs. No pneumothorax. 2. Subacute/healing fractures are present in the anterior right 3rd through 6th ribs and posterolateral left 7th, 8th, 11th and 12th ribs. 3. No pulmonary contusion. Dictated by: Dictated on workstation # [id number]
[2021-09-28] MEDS ORDERED: ACETAMINOPHEN 325 MG TABLET PO ONE (12:30)
[2021-09-28] MEDS ORDERED: KETOROLAC 30 MG/ML VIAL IVP ONE (12:30)
[2021-09-28 12:53] VITALS: BP 99/75
== END 2021-09-28 12:51 | disposition home or self-care (01) ==
LOC: EDUNIT# 09:44 → ER 09:46
DX: S22.43XA Multiple fractures of ribs, bilateral, initial encounter for closed fracture (principal); S06.0X0A Concussion without loss of consciousness, initial encounter; R29.6 Repeated falls; I48.91 Unspecified atrial fibrillation; F17.210 Nicotine dependence, cigarettes, uncomplicated; Z79.01 Long term (current) use of anticoagulants; W19.XXXA Unspecified fall, initial encounter
CPT/HCPCS: 70450; 70486; 71250; 72125; 80053; 80306; 81000; 83605; 83690; 85025; 85610; 85730; 87040; 93041; G0480; 36415; 80320; 93005

== ENCOUNTER 2021-11-17 22:53 | Inpatient (IN) | payer SELFPAY ==
[~2021-11-17] VITALS: Ht 185.4 cm; Wt 95.1 kg
[~2021-11-17 22:53] MED LIST changes: +LEVO750T PO; -LEVO750T39 PO
[2021-11-17] MEDS ORDERED: meTOproloL SUCCINATE 50 MG (TOPROL XL) TAB PO STA (23:03)
[2021-11-17] MEDS ORDERED: LACTATED RINGERS 1,000 ML IV STA (23:03)
[2021-11-17] MEDS ORDERED: METO50TA7 PO (23:04)
[2021-11-17] MEDS ORDERED: LOSA25TA41 PO (23:04)
--- NOTE | 2021-11-17 23:10 | ED Fall/Injury ---
General Chief Complaint: Trauma-Non Activation Stated Complaint: FALL, RIB PAIN Source: patient, EMS Exam Limitations: no limitations History of Present Illness Date Seen by Provider: Nov 17, 2021 Time Seen by Provider: 22:55 Initial Comments 55-year-old male with past medical history of paroxysmal A. fib on Eliquis, hypertension, alcohol use disorder, polysubstance use disorder coming in via EMS from home after he fell. He has been drinking beer today, and has had multiple falls over the past couple months. He hit his head yesterday, and is continuing to take Eliquis. He ran out of his metoprolol and has not been taking that. He is having left-sided chest wall pain after he landed on it. The pain is modera te, constant, sharp, and nothing seems to make better or worse. 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 Has not had any Tylenol. Otherwise denying any other acute complaints including any headache, vision changes, weakness, numbness, rash, fever, chills, shortness of breath, cough, vomiting, diarrhea, or any other concerns. Allergies and Home Medications Allergies Coded Allergies: ARIANANo Known Allergies (Unverified Allergy, Mild, 04/20/09) Patient Home Medication List Home Medication List Reviewed: Yes Apixaban (Eliquis) 5 Mg Tablet, 5 MG PO BID Prescribed by: KAMALA ROBERTS on 08/07/20 1618 Losartan Potassium (Losartan Potassium) 25 Mg Tablet, Unknown Dose PO DAILY, (Reported) Entered as Reported by: ROGER MORENO on 11/17/212303 Last Action: New Order Metoprolol Succinate (Metoprolol Succinate) 50 Mg Tab.er.24h, Unknown Dose PO DAILY, (Reported) Entered as Reported by: ROGER MORENO on 11/17/212303 Last Action: New Order Review of Systems Review of Systems Constitutional: No fever Eyes: Denies Blurred Vision Ears, Nose, Mouth, Throat: no symptoms reported Respiratory: no symptoms reported Cardiovascular: no symptoms reported Genitourinary: no symptoms reported Musculoskeletal: see HPI Skin: no symptoms reported Psychiatric/Neurological: No Symptoms Reported All Other Systems Reviewed Negative Unless Noted: Yes Past Eupdwwh-Oyapqu-Dwpbqk Hx Patient Social History Tobacco Use?: Yes Substance use?: Yes Substance type: Methamphetamine, Marijuana Alcohol Use?: Yes Alcohol type: Beer Alcohol Frequency: Daily Pt feels they are or have been: No Immunizations Up To Date Tetanus Booster (TDap): Unknown First/Initial COVID19 Vaccinat: no Seasonal Allergies Seasonal Allergies: No Past Medical History Surgery/Hospitalization HX: afib, chf, bph, high cholesterol, anxiety, liver disease, etoh/poly substance abuse. Surgeries: No Respiratory: No Currently Using CPAP: No Currently Using BIPAP: No Cardiac: Yes (RBBB;QUESTIONABLE HISTORY OF HTN-POSSIBLY RELATED TO ETOH WITHDRAWL??) Atrial Fibrillation, Hypertension Neurological: No Reproductive Disorders: No Genitourinary: Yes (enlarged prostate ) Benign Prostatic Hyperpl, Prostate Problems Gastrointestinal: Yes Liver Disease/Jaundice, Chronic Diarrhea, Cirrhosis Musculoskeletal: No Endocrine: No HEENT: No Cancer: No Psychosocial: Yes (POLYSUBSTANCE ABUSE--ALCOHOL + DRUGS) Anxiety Integumentary: No Blood Disorders: No Adverse Reaction/Blood Tranf: No Family Medical History No Pertinent Family Hx HISTORY OF D.T.'S WITH ALCOHOL WITHDRAWL, BUT NO HISTORY OF ALCOHOL WITHDRAWL SEIZURES. PT HAS REPEATEDLY REFUSED ANY KIND OF ALCOHOL TREATMENT AND HAS NO DESIRE TO STOP DRINKING. SOCIAL HISTORY: -SMOKES > 1 PPD -ETOH--VERY HEAVY, DAILY USE SINCE AGE 17 -DRUGS--HX OF SMOKING METH, THC. Physical Exam Vital Signs Vital Signs - First Documented 11/17/21 22:54 Temp 35.9 Pulse 121 Resp 16 B/P (MAP) 137/99 (112) Pulse Ox 97 O2 Delivery Room Air Capillary Refill : Height, Weight, BMI Height: 6'1.00" Weight: 198lbs. 0.0oz. 89.140457yp; 26.00 BMI Method:Stated General Appearance: WD/WN, no apparent distress HEENT: PERRL/EOMI, normal ENT inspection, pharynx normal Neck: non-tender, full range of motion, supple, normal inspection Cardiovascular: no edema, no murmur, tachycardia, irregularly irregular Respiratory: chest non-tender, lungs clear, normal breath sounds, no respiratory distress, no accessory muscle use Gastrointestinal: normal bowel sounds, non tender, soft; No distended, No guarding, No rebound Back: normal inspection, no CVA tenderness, no vertebral tenderness Extremities: normal range of motion, non-tender, normal inspection, no pedal edema, no calf tenderness, normal capillary refill Neurologic/Psychiatric: no motor/sensory deficits, alert, normal mood/affect Skin: normal color, warm/dry Lymphatic: no adenopathy Eddie Coma Score Best Eye Response: (4) Open Spontaneously Best Verbal Response: (5) Oriented Best Motor Response: (6) Obeys Commands Progress/Results/Core Measures Results/Orders Lab Results Laboratory Tests Test 11/17/21 23:00 Range/Units White Blood Count 9.1 4.3-11.0 10^3/uL Red Blood Count 3.67 L 4.30-5.52 10^6/uL Hemoglobin 11.3 L 13.3-17.7 g/dL Hematocrit 31 L 40-54 % Mean Corpuscular Volume 86 80-99 fL Mean Corpuscular Hemoglobin 31 25-34 pg Mean Corpuscular Hemoglobin Concent 36 32-36 g/dL Red Cell Distribution Width 13.5 10.0-14.5 % Platelet Count 113 L 130-400 10^3/uL Mean Platelet Volume 9.6 9.0-12.2 fL Immature Granulocyte % (Auto) 0 % Neutrophils (%) (Auto) 66 42-75 % Lymphocytes (%) (Auto) 28 12-44 % Monocytes (%) (Auto) 6 0-12 % Eosinophils (%) (Auto) 0 0-10 % Basophils (%) (Auto) 0 0-10 % Neutrophils # (Auto) 6.0 1.8-7.8 10^3/uL Lymphocytes # (Auto) 2.5 1.0-4.0 10^3/uL Monocytes # (Auto) 0.5 0.0-1.0 10^3/uL Eosinophils # (Auto) 0.0 0.0-0.3 10^3/uL Basophils # (Auto) 0.0 0.0-0.1 10^3/uL Immature Granulocyte # (Auto) 0.0 0.0-0.1 10^3/uL Percent Immature Platelet Fraction 6.8 0.0-7.6 % Prothrombin Time 14.9 H 12.2-14.7 SEC INR Comment 1.1 0.8-1.4 Activated Partial Thromboplast Time 38 H 24-35 SEC Sodium Level 120 *L 135-145 MMOL/L Potassium Level 2.8 L 3.6-5.0 MMOL/L Chloride Level 80 L 98-107 MMOL/L Carbon Dioxide Level 21 21-32 MMOL/L Anion Gap 19 H 5-14 MMOL/L Blood Urea Nitrogen 13 7-18 MG/DL Creatinine 1.12 0.60-1.30 MG/DL Estimat Glomerular Filtration Rate 78 BUN/Creatinine Ratio 12 Glucose Level 97 70-105 MG/DL Calcium Level 9.1 8.5-10.1 MG/DL Corrected Calcium 8.9 8.5-10.1 MG/DL Magnesium Level 2.1 1.6-2.4 MG/DL Total Bilirubin 1.3 H 0.1-1.0 MG/DL Aspartate Amino Transf (AST/SGOT) 107 H 5-34 U/L Alanine Aminotransferase (ALT/SGPT) 71 H 0-55 U/L Alkaline Phosphatase 162 H 40-136 U/L Total Protein 8.4 H 6.4-8.2 GM/DL Albumin 4.2 3.2-4.5 GM/DL My Orders Orders - KYRA BAEZA MD Ct Chest Wo (11/17/21 23:03) Ct Head Wo (11/17/21 23:03) Ed Iv/Invasive Line Start (11/17/21 23:03) Cbc With Automated Diff (11/17/21 23:03) Comprehensive Metabolic Panel (11/17/21 23:03) Magnesium (11/17/21 23:03) Protime With Inr (11/17/21 23:03) Partial Thromboplastin Time (11/17/21 23:03) Ekg Tracing (11/17/21 23:03) Metoprolol Succinate (Xl) Tab (Toprol Xl (11/17/21 23:03) Lactated Ringers (Lr 1000 Ml Iv Solution (11/17/21 23:03) Thiamine Tablet (Vitamin B-1 Tablet) (11/17/21 23:15) Potassium Chloride (Tablet) (K Dur Table (11/17/21 23:45) Magnesium 1 Gm/100 Ml Ivpb (Magnesium Myles (11/17/21 23:31) Diltiazem Drip Pre-Mix (Cardizem Drip Pr (11/17/21 23:31) Alcohol (11/17/21 23:31) Bnp [place] (11/17/21 23:31) Troponin I [place] (11/17/21 23:31) Medications Given in ED Current Medications Medications Dose Ordered Sig/Nan Route Start Time Stop Time Status Last Admin Dose Admin Potassium Chloride 40 meq ONCE ONCE PO 11/17/21 23:45 11/17/21 23:46 DC 11/17/21 23:52 40 MEQ Thiamine HCl 100 mg ONCE ONCE PO 11/17/21 23:15 11/17/21 23:16 DC 11/17/21 23:20 100 MG Vital Signs/I&O 11/17/21 22:54 Temp 35.9 Pulse 121 Resp 16 B/P (MAP) 137/99 (112) Pulse Ox 97 O2 Delivery Room Air Progress Progress Note : Progress Note 55-year-old male with above history coming in after fall. The patient was tachycardic from the 110s to 140s in A. fib with RVR on arrival. An IV was placed and basic labs were obtained including cardiac biomarkers. EKG showing A. fib with RVR with no acute ischemic changes. Sodium came back at 120 and potassium is 2.8. An IV was placed and he was given a bolus of IV fluids as we ll as IV potassium and IV magnesium. CT head with no acute changes. CT chest with old fractures in his ribs but nothing new. I contacted Dr. De Oliveira who admit the patient to the intensive care unit for further evaluation and management. I then contacted the ICU physician and gave handoff as well. Initial ECG Impression Date: Nov 17, 2021 Initial ECG Impression Time: 23:11 Initial ECG Rate: 116 Initial ECG Rhythm: A Fib/Flutter Comment Wide QRS with a right bundle branch block, accounting for that no significant ST changes, is in A. fib with RVR, compared to prior EKG slightly faster Diagnostic Imaging Diagonstic Imaging: CT (head and c spine) Comments Per stat rad read the CT head showed no acute intracranial abnormality. The CT chest showed multiple old bilateral rib fractures Reviewed: Reviewed Night [facility] Study Critical Care Note Critical Care Start Time: 22:55 Stop Time: 23:54 Total Time (minutes) 34 Progress The patient was at significant risk for hemodynamic instability and was on cardiac drip medications requiring frequent reassessment. Departure Impression Primary Impression: Hyponatremia Additional Impressions: Atrial fibrillation with RVR Hypokalemia Disposition: ADMITTED INPATIENT Condition: Stable Admissions Decision to Admit Reason: Admit from ER (General) Decision to Admit/Date: Nov 17, 2021 Time/Decision to Admit Time: 23:45 Departure-Patient Inst. Referrals: [facility] (PCP) Primary Care Physician KEVYN STUART (Family) Primary Care Physician KYRA BAEZA MD Nov 17, 2021 23:09
[2021-11-17 23:12] LABS: HEMOGLOBIN 11.3 g/dL (13.3-17.7); LYMPHOCYTES % (AUTO) 28 % (12-44); MONOCYTES # (AUTO) 0.5 10^3/uL (0.0-1.0); MONOCYTES % (AUTO) 6 % (0-12)
[2021-11-17 23:14] LABS: BASOPHILS % (AUTO) 0 % (0-10); EOSINOPHILS % (AUTO) 0 % (0-10); HEMATOCRIT 31 % (40-54); LYMPHOCYTES # (AUTO) 2.5 10^3/uL (1.0-4.0); MEAN CORPUSCULAR HEMOGLOBIN 31 pg (25-34); MEAN CORPUSCULAR HGB CONC 36 g/dL (32-36); MEAN CORPUSCULAR VOLUME 86 fL (80-99); MEAN PLATELET VOLUME 9.6 fL (9.0-12.2); NEUTROPHILS % (AUTO) 66 % (42-75); PLATELET COUNT 113 10^3/uL (130-400); WHITE BLOOD COUNT 9.1 10^3/uL (4.3-11.0)
[2021-11-17] MEDS ORDERED: THIAMINE 100 MG (VITAMIN B-1) TAB PO ONE (23:15)
[2021-11-17 23:20] LABS: ALBUMIN 4.2 GM/DL (3.2-4.5)
[2021-11-17 23:21] LABS: POTASSIUM 2.8 MMOL/L (3.6-5.0)
[2021-11-17 23:22] LABS: CALCIUM 9.1 MG/DL (8.5-10.1); INR 1.1 (0.8-1.4); PROTHROMBIN TIME PATIENT 14.9 SEC (12.2-14.7)
[2021-11-17 23:23] LABS: TOTAL PROTEIN 8.4 GM/DL (6.4-8.2)
[2021-11-17 23:25] LABS: BILIRUBIN,TOTAL 1.3 MG/DL (0.1-1.0)
[2021-11-17 23:27] LABS: CREATININE SERUM 1.12 MG/DL (0.60-1.30)
[2021-11-17 23:29] LABS: MAGNESIUM 2.1 MG/DL (1.6-2.4)
[2021-11-17] MEDS ORDERED: dilTIAZem DRIP PRE-MIX 125 ML IV STA (23:31)
[2021-11-17] MEDS ORDERED: MAGNESIUM 1 GM/100 ML IVPB 100 ML IV STA (23:31)
[2021-11-17] MEDS ORDERED: KCL 20 MEQ TAB (K-DUR) PO ONE (23:45)
[2021-11-18] MEDS ORDERED: SENNA W/DOCUSATE (SENOKOT S) TABLET PO PRN (00:30)
[2021-11-18] MEDS ORDERED: D5 1/2 NS 1000 ML IV SOLUTION 1,000 ML IV PRN (00:30)
[2021-11-18] MEDS ORDERED: 1/2 NS IV SOLUTION 1,000 ML IV PRN (00:30)
[2021-11-18] MEDS ORDERED: LORazepam INJ 2 MG/ML (ATIVAN) VIAL IV PRN (00:30)
[2021-11-18] MEDS ORDERED: LORazepam 0.5 MG (ATIVAN) TABLET PO PRN (00:30)
[2021-11-18] MEDS ORDERED: ANTACID SUSP 30 ML UDC (MYLANTA) PO PRN (00:30)
[2021-11-18] MEDS ORDERED: LORazepam INJ 2 MG/ML (ATIVAN) VIAL IM/IV PRN (00:30)
[2021-11-18] MEDS ORDERED: LORazepam 1 MG (ATIVAN) TAB PO PRN (00:30)
[2021-11-18] MEDS ORDERED: ONDANSETRON 4 MG/2 ML (SDV) Z0FRAN IV PRN (00:30)
[2021-11-18 01:07] VITALS: BP 137/99
[2021-11-18] MEDS ORDERED: RT-ALBUTEROL HFA 8.5 GM INHALER IH PRN (01:30)
[2021-11-18] MEDS: POTASSIUM CL 10MEQ/50ML IVPB 50 ML IV SCH ×8 (01:34→09:30)
[2021-11-18 05:08] LABS: BASOPHILS % (AUTO) 1 % (0-10); EOSINOPHILS % (AUTO) 0 % (0-10); HEMATOCRIT 30 % (40-54); HEMOGLOBIN 10.8 g/dL (13.3-17.7); LYMPHOCYTES # (AUTO) 1.3 10^3/uL (1.0-4.0); LYMPHOCYTES % (AUTO) 17 % (12-44); MEAN CORPUSCULAR HEMOGLOBIN 31 pg (25-34); MEAN CORPUSCULAR HGB CONC 36 g/dL (32-36); MEAN CORPUSCULAR VOLUME 86 fL (80-99); MEAN PLATELET VOLUME 10.3 fL (9.0-12.2); MONOCYTES # (AUTO) 0.7 10^3/uL (0.0-1.0); MONOCYTES % (AUTO) 9 % (0-12); NEUTROPHILS # (AUTO) 5.7 10^3/uL (1.8-7.8); NEUTROPHILS % (AUTO) 73 % (42-75); PLATELET COUNT 93 10^3/uL (130-400); WHITE BLOOD COUNT 7.8 10^3/uL (4.3-11.0)
[2021-11-18 05:21] LABS: ALBUMIN 3.8 GM/DL (3.2-4.5); POTASSIUM 3.3 MMOL/L (3.6-5.0)
[2021-11-18 05:22] LABS: CALCIUM 8.7 MG/DL (8.5-10.1)
[2021-11-18 05:24] LABS: TOTAL PROTEIN 7.7 GM/DL (6.4-8.2)
[2021-11-18 05:25] LABS: BILIRUBIN,TOTAL 1.1 MG/DL (0.1-1.0)
[2021-11-18 05:27] LABS: CREATININE SERUM 0.96 MG/DL (0.60-1.30); PHOSPHORUS 2.4 MG/DL (2.3-4.7)
[2021-11-18 05:30] LABS: MAGNESIUM 2.3 MG/DL (1.6-2.4)
[2021-11-18] MEDS ORDERED: NS IV 500 ML 500 ML IV PRN (05:45)
--- NOTE | 2021-11-18 06:16 | Diagnostic Imaging Report ---
PROCEDURE: CT head without contrast. TECHNIQUE: Multiple contiguous axial images were obtained through the brain without the use of intravenous contrast. Auto Exposure Controls were utilized during the CT exam to meet ALARA standards for radiation dose reduction. INDICATION: Trauma. Fall. Head injury. Anticoagulation therapy. COMPARISON: CT head without contrast 09/28/2021. FINDINGS: No intracranial hemorrhage, mass effect, hydrocephalus or extra-axial fluid collections. No CT evidence of a territorial infarction. Moderate generalized parenchymal volume loss. Scalp contusion overlying the right frontal convexity. No fractures. Mucosal thickening in the left maxillary sinus. The mastoids are clear. IMPRESSION: No acute intracranial CT findings. Agree with preliminary interpretation. Dictated by: Dictated on workstation # [id number]
[2021-11-18] MEDS: KCL 20 MEQ TAB (K-DUR) PO SCH (06:30)
[2021-11-18] MEDS: CATHETER FLUSH 10 ML SYR IVP SCH ×3 (06:30→21:27)
[2021-11-18] MEDS: MAGNESIUM 1 GM/100 ML IVPB 100 ML IV SCH (06:30)
--- NOTE | 2021-11-18 07:26 | Diagnostic Imaging Report ---
PROCEDURE: CT chest without contrast. TECHNIQUE: Multiple contiguous axial images were obtained through the chest without the use of intravenous contrast. Auto Exposure Controls were utilized during the CT exam to meet ALARA standards for radiation dose reduction. INDICATION: Fall. Trauma. Left chest wall pain. COMPARISON: Chest radiograph 09/11/2021. FINDINGS: Chronic right 3rd through 6th rib fractures. Subacute left 9th through 12th rib fractures. There is also an acute mildly angulated posterior left 11th rib fracture. Lungs are clear. No pleural effusion or pneumothorax. Normal heart size. No pericardial effusion. No mediastinal, hilar or axillary lymphadenopathy. Diffuse fatty infiltration of liver. Visualized upper abdominal contents are otherwise unremarkable. IMPRESSION: 1. Acute mildly angulated posterior left 11th rib fracture. Additional subacute and chronic bilateral rib fractures as above. 2. Lungs are clear. No pleural effusion or pneumothorax. Findings differ from preliminary interpretation which did not mention the acute left posterior 11th rib fracture. These additional findings were communicated to the ER via the additional findings tracking sheet. Dictated by: Dictated on workstation # [id number]
--- NOTE | 2021-11-18 08:57 | Tele-ICU Progress Note ---
Subjective Date Seen by a Provider: Nov 18, 2021 Subjective/Events-last exam This virtual visit was conducted using real time audio/video. Thank you for asking us to see this patient for fall, alc. intox., afib/RVR, hyponat. Recent events:0 PE: Resting comfortably on camera. VSS. O2 sat 96% on RA. HEENT: No obvious masses, adenopathy or JVD. Chest: clear to auscultation. CV: Irreg 110-120. S1 S2 No murmur or added sounds. Abd: Non-tender. Bowel sounds Y. : Unremarkable. Dyer N. [employer] HOUSE[employer]/psychiatric: Grossly intact. No obvious focal findings. Extremities: No edema. Capillary refill < 3 seconds. Skin: unremarkable. Results: Decreased Hb 10.8, Na 124, K 3.3. Available chart/ vitals / labs / images reviewed. Video assessment done using teleICU camera, rest of exam as per RN. A/P: Critical Care: critically ill patient. Cont. IVF, Card., CIWA, Eliq. Replace K. Discussed with RN . Asked RN to reach out to eICU if any questions or concerns later. Time spent with patient/coordination of care with other health professionals (mins): 23 Sepsis Event Evaluation Height, Weight, BMI Height: 6'1.00" Weight: 198lbs. 0.0oz. 89.471607fq; 26.18 BMI Method:Stated Exam Exam Patient acknowledged, consented, and participated in this virtual visit which was conducted using real time audio/video Vital Signs Date Time Temp Pulse Resp B/P (MAP) Pulse Ox O2 Delivery O2 Flow Rate FiO2 11/18/21 08:08 36.0 11/18/21 08:00 111 10 107/79 (88) 91 Room Air 11/18/21 07:36 104/86 (92) 100 Room Air 11/18/21 07:00 106 11/18/21 06:00 78 13 91/49 (63) 97 Room Air 11/18/21 05:00 101 13 85/53 (64) 97 Room Air 11/18/21 04:00 98 14 109/68 (78) 95 Room Air 11/18/21 04:00 100 Room Air 11/18/21 03:15 85 10 115/73 (86) 99 Room Air 11/18/21 02:00 92 19 117/83 (93) 91 Room Air 11/18/21 01:45 89 15 89/65 (75) 97 Room Air 11/18/21 01:30 81 93/65 (69) 95 Room Air 11/18/21 01:15 93 15 104/76 (85) 95 Room Air 11/18/21 01:07 35.9 121 97 21 11/18/21 01:00 87 15 102/67 (78) 90 Room Air 11/18/21 01:00 87 11/18/21 00:45 99 13 123/80 (96) 99 Room Air 11/18/21 00:30 94 12 110/84 (89) 99 Room Air 11/18/21 00:23 111 23 139/99 (105) 96 Room Air 11/18/21 00:20 99 11/18/21 00:18 36.5 109 20 138/92 (105) 92 Room Air 11/18/21 00:15 100 Room Air 11/18/21 00:06 36.0 110 16 118/65 98 Room Air 11/17/21 22:54 35.9 121 16 137/99 (112) 97 Room Air I & O 11/18/21 06:59 Intake Total 150 ml Output Total 1200 ml Balance -1050 ml Height & Weight Height: 6'1.00" Weight: 198lbs. 0.0oz. 89.282831hj; 26.18 BMI Method:Stated General Appearance: No Apparent Distress (See free text.) Capillary Refill: Less Than 3 Seconds Peripheral Pulses: 1+ Dorsalis Pedis (R), 1+ Left Dors-Pedis (L) Gastrointestinal: normal bowel sounds, non tender, soft; No distended, No guarding, No rebound Results Lab Laboratory Tests 11/17/21 23:00 11/18/21 04:37 Assessment/Plan Assessment/Plan See free text. Critical Care: Critically Ill Patient LAVON RAMIREZ MD Nov 18, 2021 08:57
[2021-11-18] MEDS: MULTIVIT W/MINERALS TAB (THERAGRAN M) PO SCH (09:25)
[2021-11-18] MEDS: APIXABAN 5 MG (ELIQUIS) TABLET PO SCH ×2 (09:26→21:26)
[2021-11-18] MEDS: MAGNESIUM OXIDE (MAG-OX)400 MG TAB PO SCH ×2 (09:26→21:26)
[2021-11-18] MEDS: THIAMINE 100 MG (VITAMIN B-1) TAB PO SCH (09:26)
[2021-11-18] MEDS: FOLIC ACID 1 MG TAB PO SCH (09:26)
[2021-11-18] MEDS ORDERED: LOSA1TAB20 PO (10:59)
[2021-11-18] MEDS ORDERED: MULT-1029 PO (10:59)
[2021-11-18] MEDS ORDERED: APIX5TAB PO (10:59)
--- NOTE | 2021-11-18 12:19 | Consultation-Cardiology ---
HPI-Cardiology Cardiology Consultation Date of Consultation 11/18/21 Date of Admission Time Seen by Provider: 12:14 Indication: Atrial fibrillation HPI 55-year-old gentleman with history of alcoholism, paroxysmal atrial fibrillation, hypertension, substance abuse. Came into the emergency room for multiple falls, had multiple injuries to his head and chest from recurrent falling. Noted to be in atrial fibrillation. On my evaluation he was laying down in bed comfortable, denied any active pain. No chest pain other than pain on his ribs from breathing. No palpitation. Home Medications & Allergies Allergies: Coded Allergies: NKANo Known Allergies (Unverified Allergy, Mild, 04/20/09) Home Medication List Reviewed: Yes ZXM-Kzxhcz-Yxlqdt Hx Patient Social History Marital Status: single Employed/Student: unemployed Drug of Choice: HX OF SMOKING METH AND MARIJUANA Type Used: Cigarettes 2nd Hand Smoke Exposure: No Recent Hopitalizations: No Have you traveled recently?: No Alcohol Use?: Yes Substance type: Methamphetamine, Marijuana Immunizations Up To Date Tetanus Booster (TDap): Unknown Date of Influenza Vaccine: Jan 17, 2016 Past Medical History Discussed below Family Medical History Significant Family History: No Pertinent Family Hx Family Medical Hx Noncontributory Review of Systems-General Review of Systems Constitutional: No fever; malaise, weakness EENTM: see HPI, no symptoms reported Respiratory: no symptoms reported, see HPI Cardiovascular: no symptoms reported, see HPI Gastrointestinal: no symptoms reported, see HPI Genitourinary: no symptoms reported Musculoskeletal: see HPI Skin: no symptoms reported Psychiatric/Neurological: No Symptoms Reported All Other Systems Reviewed Negative Unless Noted: Yes Reviewed Test Results Reviewed Test Results Lab Laboratory Tests Test 11/17/21 23:00 11/18/21 04:37 Range/Units White Blood Count 9.1 7.8 4.3-11.0 10^3/uL Red Blood Count 3.67 L 3.45 L 4.30-5.52 10^6/uL Hemoglobin 11.3 L 10.8 L 13.3-17.7 g/dL Hematocrit 31 L 30 L 40-54 % Mean Corpuscular Volume 86 86 80-99 fL Mean Corpuscular Hemoglobin 31 31 25-34 pg Mean Corpuscular Hemoglobin Concent 36 36 32-36 g/dL Red Cell Distribution Width 13.5 13.4 10.0-14.5 % Platelet Count 113 L 93 L 130-400 10^3/uL Mean Platelet Volume 9.6 10.3 9.0-12.2 fL Immature Granulocyte % (Auto) 0 1 % Neutrophils (%) (Auto) 66 73 42-75 % Lymphocytes (%) (Auto) 28 17 12-44 % Monocytes (%) (Auto) 6 9 0-12 % Eosinophils (%) (Auto) 0 0 0-10 % Basophils (%) (Auto) 0 1 0-10 % Neutrophils # (Auto) 6.0 5.7 1.8-7.8 10^3/uL Lymphocytes # (Auto) 2.5 1.3 1.0-4.0 10^3/uL Monocytes # (Auto) 0.5 0.7 0.0-1.0 10^3/uL Eosinophils # (Auto) 0.0 0.0 0.0-0.3 10^3/uL Basophils # (Auto) 0.0 0.0 0.0-0.1 10^3/uL Immature Granulocyte # (Auto) 0.0 0.0 0.0-0.1 10^3/uL Percent Immature Platelet Fraction 6.8 0.0-7.6 % Prothrombin Time 14.9 H 12.2-14.7 SEC INR Comment 1.1 0.8-1.4 Activated Partial Thromboplast Time 38 H 24-35 SEC Sodium Level 120 *L 124 *L 135-145 MMOL/L Potassium Level 2.8 L 3.3 L 3.6-5.0 MMOL/L Chloride Level 80 L 87 L 98-107 MMOL/L Carbon Dioxide Level 21 21 21-32 MMOL/L Anion Gap 19 H 16 H 5-14 MMOL/L Blood Urea Nitrogen 13 11 7-18 MG/DL Creatinine 1.12 0.96 0.60-1.30 MG/DL Estimat Glomerular Filtration Rate 78 94 BUN/Creatinine Ratio 12 11 Glucose Level 97 99 70-105 MG/DL Calcium Level 9.1 8.7 8.5-10.1 MG/DL Corrected Calcium 8.9 8.9 8.5-10.1 MG/DL Magnesium Level 2.1 2.3 1.6-2.4 MG/DL Total Bilirubin 1.3 H 1.1 H 0.1-1.0 MG/DL Aspartate Amino Transf (AST/SGOT) 107 H 89 H 5-34 U/L Alanine Aminotransferase (ALT/SGPT) 71 H 60 H 0-55 U/L Alkaline Phosphatase 162 H 142 H 40-136 U/L Troponin I < 0.028 <0.028 NG/ML B-Type Natriuretic Peptide 253.4 H <100.0 PG/ML Total Protein 8.4 H 7.7 6.4-8.2 GM/DL Albumin 4.2 3.8 3.2-4.5 GM/DL Serum Alcohol 362 *H <10 MG/DL Phosphorus Level 2.4 2.3-4.7 MG/DL Physical Exam Physical Exam Vital Signs Vital Signs - First Documented 11/17/21 11/18/21 22:54 01:07 Temp 35.9 Pulse 121 Resp 16 B/P (MAP) 137/99 (112) Pulse Ox 97 O2 Delivery Room Air FiO2 21 Capillary Refill : Less Than 3 Seconds Height, Weight, BMI Height: 6'1.00" Weight: 198lbs. 0.0oz. 89.007447lm; 26.18 BMI Method:Stated General Appearance: No Apparent Distress (See free text.) Eyes: Bilateral Eye Normal Inspection, Bilateral Eye PERRL, Bilateral Eye EOMI HEENT: PERRL/EOMI, TMs Normal, Normal ENT Inspection, Pharynx Normal, Moist Mucous Membranes Neck: Full Range of Motion, Normal Inspection, Non Tender, Supple, Carotid Bruit Respiratory: Chest Non Tender, Normal Breath Sounds, No Accessory Muscle Use, No Respiratory Distress Cardiovascular: No Edema, No Gallop, No JVD, No Murmur, Normal Peripheral Pulses, Irregularly Irregular, Tachycardia Gastrointestinal: Normal Bowel Sounds, No Organomegaly, No Pulsatile Mass, Non Tender, Soft Back: Normal Inspection, No CVA Tenderness, No Vertebral Tenderness Extremity: Normal Capillary Refill, Normal Inspection, Normal Range of Motion, Non Tender, No Calf Tenderness, No Pedal Edema Neurologic/Psychiatric: Alert, Oriented x3, No Motor/Sensory Deficits, Normal Mood/Affect Skin: Normal Color, Warm/Dry Lymphatic: No Adenopathy A/P-Cardiology Admission Diagnosis Atrial fibrillation Tachycardia Alcoholism Noncompliant with medication Assessment/Plan Atrial fibrillation with rapid ventricular response. Noncompliant with medication Maintained on Eliquis Patient was on Cardizem drip, I will stop the drip and start him on oral Cardizem Monitor tolerance and response Palpitation, tachycardia secondary to atrial fibrillation Stress test done in December 2020 showing no significant ischemia or infarction with ejection fraction 60% 2D echo was done in August 2020 showing normal LV size and function with ejection fraction normal, PA pressure 30 to 35 mmHg. I will repeat 2D echo Chest pain, secondary to multiple ribs injury. Multiple falling, increased risk of bleeding. Alcoholism, alcoholic encephalopathy. Recommend withdrawal precaution. Hyponatremia, elevated liver enzymes. Managed by medical team History of noncompliance with medication MESFIN DANIELLE MD Nov 18, 2021 12:19
[2021-11-18 13:30] VITALS: BP 112/89
--- NOTE | 2021-11-18 13:58 | History & Physical-Hospitalist ---
BOY BLAIR 11/18/21 1358: History of Present Illness HPI/Chief Complaint Patient is a 55 year old M with history of alcoholism and polysubstance abuse disorder who presented to ER after having multiple falls 2 days ago. He reports falling inside his home onto the toilet and hitting his head. He also reports hitting his ribs during one of the falls. In the ER, patient received imaging. CT head showed no acute intracranial abnormalities. CT chest confirmed some bilateral chest fractures to be present. Patient was transferred to ICU and developed some hyponatremia and alcohol withdrawal. Sodium is at 124 today. This morning patient reports being seen by cardiology and found to be in Afib with RVR. He denies any other complaints at this time. Source: patient Exam Limitations: intoxication Date Seen 11/18/21 Time Seen by a Provider: 11:54 Attending Physician [place] PCP Admitting Physician: Nay De Oliveira DO Attending Physician: Nay De Oliveira DO Referring Physician Date of Admission Nov 17, 2021 at 23:43 Home Medications & Allergies Home Medications Reviewed patient Home Medication Reconciliation performed by pharmacy medication reconciliations oil heat technician and/or nursing. Patients Allergies have been reviewed. Allergies Allergies Coded Allergies NKANo Known Allergies (Unverified Allergy, Mild, 04/20/09) Past Yhxfhqr-Jitnnu-Hmxpmo Hx Patient Social History Marrital Status: single Employed/Student: unemployed Tobacco Use?: Yes Substance use?: Yes Substance type: Methamphetamine, Marijuana Alcohol Use?: Yes Alcohol type: Beer Alcohol Frequency: Daily Pt feels they are or have been: No Immunizations Up To Date Date of Influenza Vaccine: Jan 17, 2016 First/Initial COVID19 Vaccinat: no Tetanus Booster (TDap): Unknown Seasonal Allergies Seasonal Allergies: No Current Status Advance Directives: No Communicates: Verbally Primary Language: Malian Preferred Spoken Language: Malian Is interpretation needed?: No Implanted or Applied Medical D: None Past Medical History Currently Using CPAP: No Currently Using BIPAP: No Atrial Fibrillation, Hypertension Benign Prostatic Hyperpl, Prostate Problems Liver Disease/Jaundice, Chronic Diarrhea, Cirrhosis Anxiety Blood Disorders: No Adverse Reaction/Blood Tranf: No Chronic alcohol abuse Insomnia Anxiety Cirrhosis w/ chronic thrombocytopenia PSH: none Family Medical History No Pertinent Family Hx HISTORY OF D.T.'S WITH ALCOHOL WITHDRAWL, BUT NO HISTORY OF ALCOHOL WITHDRAWL SEIZURES. PT HAS REPEATEDLY REFUSED ANY KIND OF ALCOHOL TREATMENT AND HAS NO DESIRE TO STOP DRINKING. SOCIAL HISTORY: -SMOKES > 1 PPD -ETOH--VERY HEAVY, DAILY USE SINCE AGE 17 -DRUGS--HX OF SMOKING METH, THC. Review of Systems Constitutional: No chills, No fever EENTM: No hearing loss Respiratory: No cough, No short of breath Cardiovascular: No chest pain, No palpitations Physical Exam Physical Exam Vital Signs Vital Signs - First Documented 11/17/21 11/18/21 22:54 01:07 Temp 35.9 Pulse 121 Resp 16 B/P (MAP) 137/99 (112) Pulse Ox 97 O2 Delivery Room Air FiO2 21 Capillary Refill : Less Than 3 Seconds Height, Weight, BMI Height: 6'1.00" Weight: 198lbs. 0.0oz. 89.411433nj; 26.18 BMI Method:Stated General Appearance: No Apparent Distress HEENT: Moist Mucous Membranes Neck: Non Tender, Supple Respiratory: Chest Non Tender, No Accessory Muscle Use, No Respiratory Distress Cardiovascular: No JVD, Irregularly Irregular Gastrointestinal: Non Tender, Soft Rectal: Deferred Neurologic/Psychiatric: Other (Intoxicated ) Skin: Normal Color, Warm/Dry Lymphatic: No Adenopathy Results Results/Procedures Labs Laboratory Tests 11/17/21 23:00 11/18/21 04:37 Patient resulted labs reviewed. Assessment/Plan Admission Diagnosis Admission Status: Observation Assessment and Plan Assessment: Multiple Falls History Alcohol Abuse Disorder Polysubstance Abuse Disorder Hyponatremia Atrial Fibrillation with RVR Congestive Heart Failure History of HTN Plan: IV Fluids Potassium replacement Sodium replacement Cardizem drip Continue to monitor patient labs Continue to monitor patient vitals NAY DE OLIVEIRA DO 11/19/21 0556: History of Present Illness HPI/Chief Complaint CC: Afib with RVR with alcohol detox HPI: This is a 55 yr old male who presented with afib with RVR new onset. He reports he has had it before. Cardiology was consulted. Cardizem drip was stopped. Switched to Cardizem PO q6 hours. Will monitor for alcohol withdrawal. Source: patient Exam Limitations: intoxication Past Bvzzcsx-Avngxm-Qsletj Hx Patient Social History Marrital Status: single Employed/Student: unemployed Review of Systems Constitutional: see HPI Physical Exam Physical Exam General Appearance: No Apparent Distress, Chronically ill Respiratory: Lungs Clear, Normal Breath Sounds Cardiovascular: Regular Rate, Rhythm Neurologic/Psychiatric: Alert, Oriented x3 Assessment/Plan Admission Diagnosis Assessment: AF RVR Alcoholism Plan: Monitor closely Admission Status: Inpatient Order (span 2 midnights) Reason for Inpatient Admission: af rvr Supervisory-Addendum Brief Verification & Attestation Participated in pt care: history, MDM, physical Personally performed: exam, history, MDM, supervision of care Care discussed with: Medical Student Procedures: n/a Results interpretation: Verified all documentation Verification and Attestation of Medical Student E/M Service A medical student performed and documented this service in my presence. I reviewed and verified all information documented by the medical student and made modifications to such information, when appropriate. I personally performed the physical exam and medical decision making. Nay De Oliveira, Nov 19, 2021,05:56 BOY BLAIR Nov 18, 2021 13:58 NAY DE OLIVEIRA DO Nov 19, 2021 05:56
[2021-11-18] MEDS: ACETAMINOPHEN 500 MG TAB (TYLENOL) PO PRN (16:26)
[2021-11-18] MEDS: RT-ALBUTEROL SULF 2.5 MG/3 ML PRE-MIX VIAL INH SCH (19:39)
[2021-11-18] MEDS ORDERED: NS IV 500 ML 500 ML IV SCH (20:45)
[2021-11-19 05:16] LABS: BASOPHILS % (AUTO) 1 % (0-10); HEMATOCRIT 28 % (40-54); HEMOGLOBIN 9.8 g/dL (13.3-17.7); MEAN CORPUSCULAR HGB CONC 35 g/dL (32-36)
[2021-11-19 05:17] LABS: EOSINOPHILS % (AUTO) 1 % (0-10); LYMPHOCYTES # (AUTO) 0.8 10^3/uL (1.0-4.0); LYMPHOCYTES % (AUTO) 14 % (12-44); MEAN CORPUSCULAR HEMOGLOBIN 31 pg (25-34); MEAN CORPUSCULAR VOLUME 88 fL (80-99); MONOCYTES # (AUTO) 0.8 10^3/uL (0.0-1.0); MONOCYTES % (AUTO) 13 % (0-12); NEUTROPHILS # (AUTO) 4.3 10^3/uL (1.8-7.8); NEUTROPHILS % (AUTO) 72 % (42-75); PLATELET COUNT 85 10^3/uL (130-400); WHITE BLOOD COUNT 5.9 10^3/uL (4.3-11.0)
[2021-11-19 05:29] LABS: ALBUMIN 3.6 GM/DL (3.2-4.5); POTASSIUM 3.6 MMOL/L (3.6-5.0)
[2021-11-19 05:30] LABS: CALCIUM 8.9 MG/DL (8.5-10.1)
[2021-11-19 05:31] LABS: TOTAL PROTEIN 7.2 GM/DL (6.4-8.2)
[2021-11-19 05:33] LABS: BILIRUBIN,TOTAL 1.7 MG/DL (0.1-1.0)
[2021-11-19 05:34] LABS: PHOSPHORUS 1.9 MG/DL (2.3-4.7)
[2021-11-19 05:35] LABS: CREATININE SERUM 0.97 MG/DL (0.60-1.30)
[2021-11-19 05:38] LABS: MAGNESIUM 2.3 MG/DL (1.6-2.4)
[2021-11-19] MEDS: KCL 20 MEQ TAB (K-DUR) PO SCH (06:32)
[2021-11-19] MEDS: MAGNESIUM 1 GM/100 ML IVPB 100 ML IV SCH (06:33)
[2021-11-19] MEDS: POTASSIUM CL 10MEQ/50ML IVPB 50 ML IV SCH (06:33)
[2021-11-19] MEDS: CATHETER FLUSH 10 ML SYR IVP SCH ×3 (06:36→22:04)
[2021-11-19] MEDS: THIAMINE 100 MG (VITAMIN B-1) TAB PO SCH (06:37)
[2021-11-19] MEDS: MULTIVIT W/MINERALS TAB (THERAGRAN M) PO SCH (06:37)
--- NOTE | 2021-11-19 07:20 | Progress Note - Hospitalist ---
Subjective HPI/CC On Admission Date Seen by Provider: Nov 19, 2021 Time Seen by Provider: 11:00 CC: Afib with RVR with alcohol detox HPI: This is a 55 yr old male who presented with afib with RVR new onset. He reports he has had it before. Cardiology was consulted. Cardizem drip was stopped. Switched to Cardizem PO q6 hours. Will monitor for alcohol withdrawal. Subjective/Events-last exam Doing the same Cardizem bolus initiated last night for tachycardia ETOH withdrawal stable Review of Systems General: Fatigue, Malaise Objective Exam Vital Signs Vital Signs Date Time Temp Pulse Resp B/P (MAP) Pulse Ox O2 Delivery O2 Flow Rate FiO2 11/19/21 13:00 69 11/19/21 13:00 10 95/65 (75) 98 Room Air 11/19/21 12:00 37.0 11/18/21 13:30 21 Capillary Refill : Less Than 3 Seconds General Appearance: No Apparent Distress, WD/WN, Chronically ill Respiratory: No Accessory Muscle Use, No Respiratory Distress, Decreased Breath Sounds Cardiovascular: Irregularly Irregular, Tachycardia Neurologic/Psychiatric: Alert, Oriented x3, Depressed Affect Results/Procedures Lab Laboratory Tests 11/19/21 04:22 11/19/21 11:35 Patient resulted labs reviewed. Assessment/Plan Assessment and Plan Assess & Plan/Chief Complaint Assessment: AF RVR Recent falls with rib fractures Alcoholism with alcohol withdrawal Plan: Monitor closely Cardizem drip Critical Care Critically Ill Patient BRANJAREK GOOD Nov 19, 2021 07:20
[2021-11-19] MEDS: FOLIC ACID 1 MG TAB PO SCH (08:16)
[2021-11-19] MEDS: MAGNESIUM OXIDE (MAG-OX)400 MG TAB PO SCH ×2 (08:16→22:03)
[2021-11-19] MEDS: APIXABAN 5 MG (ELIQUIS) TABLET PO SCH ×2 (08:16→22:03)
[2021-11-19] MEDS: ACETAMINOPHEN 500 MG TAB (TYLENOL) PO PRN (08:22)
[2021-11-19] MEDS ORDERED: POT PHOS/NA PHOS (K-PHOS NEUTRAL) PO NR (08:30)
[2021-11-19] MEDS ORDERED: KCL 20 MEQ TAB (K-DUR) PO NR (08:30)
--- NOTE | 2021-11-19 09:02 | Tele-ICU Progress Note ---
Subjective Date Seen by a Provider: Nov 19, 2021 Time Seen by a Provider: 09:01 Subjective/Events-last exam (Tele-ICU Physician , Progress Note ) Available chart/ vitals / labs / Images reviewed Video assessment done using teleICU camera, rest of exam as per RN Discussed with RN Events overnight : Afebrile hemodynamically stable Respiratory - I/O = Drips: Pressors- no Consultants: Hospital course: (11/18) 55/M admitted s/p fall at home hitting head. Polysubstance abuse, ETOH, hyponatremia, hypokalemia. Bialteral rib fractures, some acute, some subacute (11/19) Rapid afib. On PO cardizem. Thrombocytopenia A/P Multiple Falls History - ETON intox , arrhytmias , hyponatremia - CTH - neg 11/18 A fib RVR - as per cards -ECHO 11/18/21 EF 60% - AC with eliquis Hyponatremia 120 on admission - rised ti 128 today - appropriate slow rise , cont po intak - no Sz Alcohol Abuse Disorder/Polysubstance Abuse Disorder - CIWA - thiamine / folate Thrombocytopenia - ? ETOH related Anenmia - no sourse of bleeding - repeat hb at noon with low PLT and on Eliquis Lines : , (Central Line Necessity Reviewed) Dyer: OG: Nutrition: po Analgesia: Anxiety/ delirium VTE Prophylaxis: eleiquis Stress Ulcer Prophylaxis: na Plans in collaboration with bedside consultants and IM MDs. Discussed with RN to reach out if any questions or concerns A total of 31 minutes of critical care time was devoted to this patient today, required to treat and/or prevent further deterioration of critical care c ondition ( as above ) . Sepsis Event Evaluation Height, Weight, BMI Height: 6'1.00" Weight: 198lbs. 0.0oz. 89.062532ny; 26.18 BMI Method:Stated Exam Exam Patient acknowledged, consented, and participated in this virtual visit which was conducted using real time audio/video Vital Signs Date Time Temp Pulse Resp B/P (MAP) Pulse Ox O2 Delivery O2 Flow Rate FiO2 11/19/21 08:19 36.5 Room Air 11/19/21 08:00 106 33 110/80 (90) 98 Room Air 11/19/21 08:00 36.6 11/19/21 07:00 105 16 125/89 (101) 97 Room Air 11/19/21 07:00 105 11/19/21 06:00 108 15 129/73 (91) 99 Room Air 11/19/21 05:00 105 12 127/81 (96) 98 Room Air 11/19/21 04:00 98 Room Air 11/19/21 04:00 116 17 117/71 (86) 98 Room Air 11/19/21 03:00 123 18 137/83 (101) 99 Room Air 11/19/21 02:00 108 13 121/90 (100) 100 Room Air 11/19/21 01:00 118 17 118/74 (89) 98 Room Air 11/19/21 01:00 92 11/19/21 00:00 128 26 109/65 (80) 97 Room Air 11/19/21 00:00 98 Room Air 11/18/21 23:00 115 15 118/66 (83) 93 Room Air 11/18/21 22:00 105 14 106/60 (75) 99 Room Air 11/18/21 21:00 133 15 109/92 (98) 98 Room Air 11/18/21 20:00 117 13 111/51 (71) 97 Room Air 11/18/21 20:00 98 Room Air 11/18/21 20:00 36.8 11/18/21 19:39 100 Room Air 11/18/21 19:00 102 17 107/55 (72) 99 Room Air 11/18/21 19:00 114 11/18/21 18:00 98 12 103/72 (82) 94 Room Air 11/18/21 17:00 108 9 115/64 (81) 98 Room Air 11/18/21 16:58 36.2 11/18/21 16:00 98 Room Air 11/18/21 16:00 134 14 103/87 (92) 98 Room Air 11/18/21 15:00 111 27 119/82 (94) 93 Room Air 11/18/21 14:00 98 13 108/72 (84) 99 Room Air 11/18/21 13:30 36.4 101 98 21 11/18/21 13:00 101 16 112/89 (97) 98 Room Air 11/18/21 12:20 93 11/18/21 12:15 98 Room Air 11/18/21 12:00 102 16 124/88 (100) 94 Room Air 11/18/21 11:57 36.4 11/18/21 11:00 112 12 124/81 (95) 95 Room Air 11/18/21 10:55 95 Room Air 11/18/21 10:00 101 18 125/80 (95) 95 Room Air I & O 11/19/21 06:59 Intake Total 1575 ml Output Total 2350 ml Balance -775 ml Height & Weight Height: 6'1.00" Weight: 198lbs. 0.0oz. 89.346375rk; 26.18 BMI Method:Stated General Appearance: No Apparent Distress, Chronically ill HEENT: Moist Mucous Membranes Neck: Non Tender, Supple Respiratory: Lungs Clear, Normal Breath Sounds Cardiovascular: Regular Rate, Rhythm Capillary Refill: Less Than 3 Seconds Peripheral Pulses: 1+ Dorsalis Pedis (R), 1+ Left Dors-Pedis (L) Gastrointestinal: normal bowel sounds, non tender, soft; No distended, No guarding, No rebound Extremity: Normal Capillary Refill, Normal Inspection, Normal Range of Motion, Non Tender, No Calf Tenderness, No Pedal Edema Neurologic/Psychiatric: Alert, Oriented x3 Skin: Normal Color, Warm/Dry Lymphatic: No Adenopathy Results Lab Laboratory Tests 11/17/21 23:00 11/18/21 04:37 11/19/21 04:22 Assessment/Plan Assessment/Plan 1 ANTONIA WILSON MD Nov 19, 2021 09:02
--- NOTE | 2021-11-19 09:12 | Cardiology Progress Note ---
Subjective Date Seen by Provider: Nov 19, 2021 Time Seen by Provider: 09:11 Subjective/Events-last exam Patient was seen at bedside, sitting down comfortably. Eating breakfast He became tachycardic last night. Review of Systems General: No Chills, No Night Sweats, No Fatigue, No Malaise, No Appetite, No Other HEENT: No Head Aches, No Visual Changes, No Eye Pain, No Ear Pain, No Dysphasia, No Sinus Congestion, No Post Nasal Drip, No Sore Throat, No Other Pulmonary: No Dyspnea, No Cough, No Pleuritic Chest Pain, No Other Cardiovascular: No: Chest Pain, Palpitations, Orthopnea, Paroxysmal Noc. Dyspnea, Edema, Lt Headedness, Other Objective-Cardiology Exam Last Set of Vital Signs Vital Signs 11/18/21 11/19/21 13:30 08:19 Temp 36.5 O2 Delivery Room Air FiO2 21 I&O Intake and Output 11/19/21 00:00 Intake Total 1225 ml Output Total 2850 ml Balance -1625 ml Intake Oral 1025 ml IV Total 200 ml Output Urine Total 2850 ml General: Alert, Oriented X3, Cooperative HEENT: Atraumatic, PERRLA Neck: Supple, No JVD, No Thyromegaly Lungs: Clear to Auscultation, Normal Air Movement Heart: Normal S1, Normal S2, No Murmurs, Other (Atrial fibrillation, tachycardia) Abdomen: Normal Bowel Sounds, Soft, No Tenderness, No Hepatosplenomegaly, No Ma sses Extremities: No Clubbing, No Cyanosis, No Edema, Normal Pulses, No Tender ness/Swelling Skin: No Rashes, No Breakdown, No Significant Lesion Neuro: Normal Gait, Normal Speech, Strength at 5/5 X4 Ext, Normal Tone, Sensation Intact Psych/Mental Status: Mental Status NL, Mood NL Results Lab Laboratory Tests 11/19/21 04:22 A/P-Cardiology Admission Diagnosis Atrial fibrillation Tachycardia Alcoholism Noncompliant with medication Assessment/Plan Atrial fibrillation with rapid ventricular response. Noncompliant with medication Maintained on Eliquis I will increase Cardizem to 60 mg every 6 hours Adding Lopressor Planning for MOOKIE cardioversion in the morning Palpitation, tachycardia secondary to atrial fibrillation Stress test done in December 2020 showing no significant ischemia or infarction with ejection fraction 60% 2D echo was done in August 2020 showing normal LV size and function with ejection fraction normal, PA pressure 30 to 35 mmHg. I will repeat 2D echo Chest pain, secondary to multiple ribs injury. Multiple falling, increased risk of bleeding. Alcoholism, alcoholic encephalopathy. Recommend withdrawal precaution. Hyponatremia, elevated liver enzymes. Managed by medical team History of noncompliance with medication MESFIN DANIELLE MD Nov 19, 2021 09:12
[2021-11-19] MEDS: morphine INJ 4 MG/ML 1 ML (VIAL/SYRINGE) IV PRN ×3 (09:18→22:03)
[2021-11-19] MEDS: meTOprolol TARTRATE 25 MG (LOPRESSOR) TABLET PO SCH ×3 (10:32→22:03)
[2021-11-19] MEDS: RT-ALBUTEROL SULF 2.5 MG/3 ML PRE-MIX VIAL INH SCH (11:19)
[2021-11-19 11:46] LABS: HEMOGLOBIN 10.1 g/dL (13.3-17.7); MEAN PLATELET VOLUME 10.9 fL (9.0-12.2); WHITE BLOOD COUNT 6.3 10^3/uL (4.3-11.0)
[2021-11-19] MEDS: NS IV 1000 ML 1,000 ML IV SCH (16:50)
[2021-11-20] MEDS: NS IV 1000 ML 1,000 ML IV SCH (03:47)
[2021-11-20] MEDS: morphine INJ 4 MG/ML 1 ML (VIAL/SYRINGE) IV PRN (03:52)
[2021-11-20 04:30] LABS: BASOPHILS % (AUTO) 1 % (0-10)
[2021-11-20 04:32] LABS: EOSINOPHILS # (AUTO) 0.1 10^3/uL (0.0-0.3); EOSINOPHILS % (AUTO) 2 % (0-10); HEMATOCRIT 27 % (40-54); HEMOGLOBIN 8.9 g/dL (13.3-17.7); LYMPHOCYTES # (AUTO) 1.2 10^3/uL (1.0-4.0); LYMPHOCYTES % (AUTO) 22 % (12-44); MEAN CORPUSCULAR HEMOGLOBIN 31 pg (25-34); MEAN CORPUSCULAR HGB CONC 34 g/dL (32-36); MEAN CORPUSCULAR VOLUME 91 fL (80-99); MEAN PLATELET VOLUME 10.1 fL (9.0-12.2); MONOCYTES # (AUTO) 0.6 10^3/uL (0.0-1.0); MONOCYTES % (AUTO) 10 % (0-12); NEUTROPHILS # (AUTO) 3.5 10^3/uL (1.8-7.8); NEUTROPHILS % (AUTO) 65 % (42-75); PLATELET COUNT 93 10^3/uL (130-400); WHITE BLOOD COUNT 5.5 10^3/uL (4.3-11.0)
[2021-11-20 04:43] LABS: ALBUMIN 3.3 GM/DL (3.2-4.5); POTASSIUM 3.8 MMOL/L (3.6-5.0)
[2021-11-20 04:44] LABS: CALCIUM 8.7 MG/DL (8.5-10.1)
[2021-11-20 04:46] LABS: TOTAL PROTEIN 6.5 GM/DL (6.4-8.2)
[2021-11-20 04:47] LABS: BILIRUBIN,TOTAL 0.9 MG/DL (0.1-1.0)
[2021-11-20 04:49] LABS: CREATININE SERUM 0.79 MG/DL (0.60-1.30); PHOSPHORUS 1.7 MG/DL (2.3-4.7)
[2021-11-20 04:52] LABS: MAGNESIUM 1.9 MG/DL (1.6-2.4)
[2021-11-20] MEDS: CATHETER FLUSH 10 ML SYR IVP SCH ×3 (06:12→21:01)
[2021-11-20] MEDS: KCL 20 MEQ TAB (K-DUR) PO SCH (06:12)
[2021-11-20] MEDS: MAGNESIUM 1 GM/100 ML IVPB 100 ML IV SCH (06:12)
[2021-11-20] MEDS: POTASSIUM CL 10MEQ/50ML IVPB 50 ML IV SCH (06:12)
[2021-11-20] MEDS: MULTIVIT W/MINERALS TAB (THERAGRAN M) PO SCH (06:53)
[2021-11-20] MEDS: THIAMINE 100 MG (VITAMIN B-1) TAB PO SCH (06:53)
--- NOTE | 2021-11-20 07:55 | Progress Note - Hospitalist ---
Subjective HPI/CC On Admission Date Seen by Provider: Nov 20, 2021 Time Seen by Provider: 11:00 CC: Afib with RVR with alcohol detox HPI: This is a 55 yr old male who presented with afib with RVR new onset. He reports he has had it before. Cardiology was consulted. Cardizem drip was stopped. Switched to Cardizem PO q6 hours. Will monitor for alcohol withdrawal. Subjective/Events-last exam Doing the same Maintained in ICU in case RVR returns Thrombosis noted on MOOKIE in [facility] so no cardioversion today Objective Exam Vital Signs Vital Signs Date Time Temp Pulse Resp B/P (MAP) Pulse Ox O2 Delivery O2 Flow Rate FiO2 11/20/21 17:29 18 128/94 (105) 96 Room Air 11/20/21 15:46 36.1 86 11/20/21 10:30 2.00 11/19/21 20:27 21 Capillary Refill : Less Than 3 Seconds General Appearance: No Apparent Distress, WD/WN, Chronically ill Respiratory: Lungs Clear, Normal Breath Sounds Cardiovascular: Irregularly Irregular, Tachycardia Results/Procedures Lab Laboratory Tests 11/20/21 03:50 Patient resulted labs reviewed. Assessment/Plan Assessment and Plan Assess & Plan/Chief Complaint Assessment: AF RVR Thrombosis on MOOKIE in [facility] Recent falls with rib fractures Alcoholism with alcohol withdrawal Plan: Monitor closely Cardizem for rate control Critical Care Critically Ill Patient JAREK SOTOMAYOR DO Nov 20, 2021 07:55
[2021-11-20] MEDS: FOLIC ACID 1 MG TAB PO SCH (08:30)
[2021-11-20] MEDS: MAGNESIUM OXIDE (MAG-OX)400 MG TAB PO SCH ×2 (08:30→20:57)
[2021-11-20] MEDS: meTOprolol TARTRATE 25 MG (LOPRESSOR) TABLET PO SCH ×3 (08:30→21:00)
[2021-11-20] MEDS: APIXABAN 5 MG (ELIQUIS) TABLET PO SCH ×2 (08:30→20:56)
--- NOTE | 2021-11-20 09:04 | Cardiology Progress Note ---
Subjective Date Seen by Provider: Nov 20, 2021 Time Seen by Provider: 09:04 Subjective/Events-last exam Patient is laying down in bed. No new complaint. No chest pain Review of Systems General: No Chills, No Night Sweats, No Fatigue, No Malaise, No Appetite, No Other HEENT: No Head Aches, No Visual Changes, No Eye Pain, No Ear Pain, No Dysphasia, No Sinus Congestion, No Post Nasal Drip, No Sore Throat, No Other Pulmonary: No Dyspnea, No Cough, No Pleuritic Chest Pain, No Other Cardiovascular: No: Chest Pain, Palpitations, Orthopnea, Paroxysmal Noc. Dyspnea, Edema, Lt Headedness, Other Objective-Cardiology Exam Last Set of Vital Signs Vital Signs 11/19/21 11/20/21 11/20/21 11/20/21 20:27 06:42 07:33 08:00 Temp 36.2 Pulse 82 Resp 12 B/P (MAP) 131/86 (101) Pulse Ox 96 O2 Delivery Room Air O2 Flow Rate 0.00 FiO2 21 I&O Intake and Output 11/20/21 00:00 Intake Total 2000 ml Output Total 1350 ml Balance 650 ml Intake Oral 2000 ml Output Urine Total 1350 ml General: Alert, Oriented X3, Cooperative HEENT: Atraumatic, PERRLA Neck: Supple, No JVD, No Thyromegaly Lungs: Clear to Auscultation, Normal Air Movement Heart: Normal S1, Normal S2, No Murmurs, Other (Atrial fibrillation, tachycardia) Abdomen: Normal Bowel Sounds, Soft, No Tenderness, No Hepatosplenomegaly, No Masses Extremities: No Clubbing, No Cyanosis, No Edema, Normal Pulses, No Tenderness/Swelling Skin: No Rashes, No Breakdown, No Significant Lesion Neuro: Normal Gait, Normal Speech, Strength at 5/5 X4 Ext, Normal Tone, Sensation Intact Psych/Mental Status: Mental Status NL, Mood NL Results Lab Laboratory Tests 11/19/21 11:35 11/20/21 03:50 A/P-Cardiology Admission Diagnosis Atrial fibrillation Tachycardia Alcoholism Noncompliant with medication Assessment/Plan Atrial fibrillation with rapid ventricular response. Noncompliant with medication Maintained on Eliquis I will increase Cardizem to 60 mg every 6 hours Adding Lopressor Planning for MOOKIE cardioversion Palpitation, tachycardia secondary to atrial fibrillation Stress test done in December 2020 showing no significant ischemia or infarction with ejection fraction 60% 2D echo was done in August 2020 showing normal LV size and function with ejection fraction normal, PA pressure 30 to 35 mmHg. I will repeat 2D echo Chest pain, secondary to multiple ribs injury. Multiple falling, increased risk of bleeding. Alcoholism, alcoholic encephalopathy. Recommend withdrawal precaution. Hyponatremia, elevated liver enzymes. Managed by medical team History of noncompliance with medication MESFIN DANIELLE MD Nov 20, 2021 09:04
--- NOTE | 2021-11-20 09:05 | Cardiac Procedure Note-CS/ASA ---
Pre-Procedure Note Pre-Op Procedure Note Date of Available H&P: Nov 20, 2021 Date H&P Reviewed: Nov 20, 2021 Time H&P Reviewed: 09:04 History & Physical: H&P Reviewed, Patient Examed, No changes noted Pre-Operative Diagnosis: Atrial fibrillation Conscious Sedation Pre-Proced Time 09:05 ASA Score 3 For ASA 3 and 4: Consider anesthesia and medical clearance. Also, for patients with a history of failed moderate sedation consider anesthesia. Airway Lungs Heart ASA score ASA 1: a normal healthy patient ASA 2: a patient with a mild systemic disease (mid diabetes, controlled hypertension, obesity ASA 3: a patient with a severe systemic disease that limits activity (angina, COPD, prior Myocardial infarction) ASA 4: a patient with an incapacitating disease that is a constant threat to life (CHF, renal failure) ASA 5: a moribund patient not expected to survive 24 hrs. (ruptured aneurysm) ASA 6: a declared brain- patient whose organs are being harvested. For emergent operations, add the letter E after the classification Mallampati Classification Grade 3 Sedation Plan Analgesia, Amnesia, Plan communicated to team members, Discussed options with patient/fam, Discussed risks with patient/fam The patient is an appropriate candidate to undergo the planned procedure, sedation, and anesthesia. The patient immediately re-assessed prior to indication. MESFIN DANIELLE MD Nov 20, 2021 09:05
--- NOTE | 2021-11-20 09:28 | Tele-ICU Progress Note ---
Subjective Date Seen by a Provider: Nov 20, 2021 Subjective/Events-last exam This virtual visit was conducted using real time audio/video. Thank you for asking us to see this patient for fall with rib #s, alc. intox., afib/RVR, hyponat. Recent events:0 PE: Resting comfortably on camera. VSS. O2 sat 98% on RA. HEENT: No obvious masses, adenopathy or JVD. Chest: clear to auscultation. CV: Irreg 110-120. S1 S2 No murmur or added sounds. Abd: Non-tender. Bowel sounds Y. : Unremarkable. Dyer N. [employer] TEAM LEADER/psychiatric: Grossly intact. No obvious focal findings. Extremities: No edema. Capillary refill < 3 seconds. Skin: unremarkable. Results: Decreased Hb 8.9, Na 130 improved, PO4 1.7. Available chart/ vitals / labs / images reviewed. Video assessment done using teleICU camera, rest of exam as per RN. A/P: Critical Care:Cont. IVF, Card., CIWA, Eliq, Lopressor. Replace Phos. For MOOKIE/cardioversion today. Could likely transfer following observation period post MOOKIE/cardioversion. Discussed with RN Michael. Asked RN to reach out to eICU if any questions or concerns later. Time spent with patient/coordination of care with other health professionals (mins): 22 Sepsis Event Evaluation Height, Weight, BMI Height: 6'1.00" Weight: 198lbs. 0.0oz. 89.016778mv; 26.18 BMI Method:Stated Exam Exam Patient acknowledged, consented, and participated in this virtual visit which was conducted using real time audio/video Vital Signs Date Time Temp Pulse Resp B/P (MAP) Pulse Ox O2 Delivery O2 Flow Rate FiO2 11/20/21 08:00 82 12 131/86 (101) 96 Room Air 11/20/21 07:33 36.2 11/20/21 07:00 93 11/20/21 07:00 75 18 118/74 (89) 95 Room Air 11/20/21 06:42 96 Room Air 0.00 11/20/21 06:00 75 12 120/87 (98) 93 Room Air 11/20/21 05:00 73 15 100/77 (85) 93 Room Air 11/20/21 04:00 98 Room Air 11/20/21 04:00 84 14 116/70 (85) 92 Room Air 11/20/21 03:00 73 15 104/67 (79) 92 Room Air 11/20/21 02:00 86 14 106/54 (71) 93 Room Air 11/20/21 01:00 90 11/20/21 01:00 98 18 125/80 (95) 93 Room Air 11/20/21 00:00 98 Room Air 11/20/21 00:00 95 12 116/70 (85) 99 Room Air 11/20/21 00:00 36.4 11/19/21 23:00 87 12 121/80 (94) 99 Room Air 11/19/21 22:00 87 20 124/82 (96) 100 Room Air 11/19/21 21:00 83 13 117/63 (81) 98 Room Air 11/19/21 20:27 80 97 21 11/19/21 20:00 90 17 117/82 (94) 97 Room Air 11/19/21 20:00 98 Room Air 11/19/21 19:47 Room Air 11/19/21 19:36 36.3 11/19/21 19:00 98 14 134/91 (105) 96 Room Air 11/19/21 19:00 102 11/19/21 18:00 80 12 109/63 (78) 97 Room Air 11/19/21 17:00 81 11 111/69 (83) 96 Room Air 11/19/21 16:00 98 Room Air 11/19/21 16:00 85 23 110/80 (90) 99 Room Air 11/19/21 15:00 71 22 107/79 (88) 98 Room Air 11/19/21 14:00 82 12 112/77 (89) 92 Room Air 11/19/21 13:00 69 11/19/21 13:00 82 10 95/65 (75) 98 Room Air 11/19/21 12:00 75 12 91/58 (69) 95 Room Air 11/19/21 12:00 98 Room Air 11/19/21 12:00 37.0 11/19/21 11:00 89 11 100/64 (76) 97 Room Air 11/19/21 10:00 101 12 104/61 (75) 96 Room Air I & O 11/20/21 07:00 Intake Total 1500 ml Output Total 1550 ml Balance -50 ml Height & Weight Height: 6'1.00" Weight: 198lbs. 0.0oz. 89.804599xw; 26.18 BMI Method:Stated General Appearance: No Apparent Distress, WD/WN, Chronically ill HEENT: Moist Mucous Membranes Neck: Non Tender, Supple Respiratory: No Accessory Muscle Use, No Respiratory Distress, Decreased Breath Sounds Cardiovascular: Irregularly Irregular, Tachycardia Capillary Refill: Less Than 3 Seconds Peripheral Pulses: 1+ Dorsalis Pedis (R), 1+ Left Dors-Pedis (L) Gastrointestinal: normal bowel sounds, non tender, soft; No distended, No guarding, No rebound Extremity: Normal Capillary Refill, Normal Inspection, Normal Range of Motion, Non Tender, No Calf Tenderness, No Pedal Edema Neurologic/Psychiatric: Alert, Oriented x3, Depressed Affect Skin: Normal Color, Warm/Dry Lymphatic: No Adenopathy Results Lab Laboratory Tests 11/19/21 04:22 11/19/21 11:35 11/20/21 03:50 Assessment/Plan Assessment/Plan See free text. Critical Care: Critically Ill Patient LAVON RAMIREZ MD Nov 20, 2021 09:28
[2021-11-20] MEDS ORDERED: fentaNYL INJ 100 MCG/2 ML AMP ONE (10:13)
[2021-11-20] MEDS ORDERED: MIDAZOLAM 5 MG/5 ML (VERSED) VIAL ONE ×2 (10:13→10:21)
[2021-11-20] MEDS ORDERED: LIDOCAINE 2% VISCOUS 15 ML UDC ONE (10:14)
[2021-11-20] MEDS ORDERED: fentaNYL INJ 100 MCG/2 ML AMP IVP NR (10:30)
[2021-11-20] MEDS ORDERED: MIDAZOLAM 5 MG/5 ML (VERSED) VIAL IVP NR ×2 (10:30)
--- NOTE | 2021-11-20 11:04 | Diagnostic Imaging Report ---
EXAMINATION: Chest 1 view HISTORY: Recent transesophageal echocardiogram COMPARISON: 09/11/2021 FINDINGS: There is mild bibasilar atelectasis. Otherwise, the lungs are clear without edema or pneumonia. No pleural effusion or pneumothorax. Heart size is normal. IMPRESSION: 1. Mild atelectasis, otherwise clear lungs. Dictated by: Dictated on workstation # [id number]
[2021-11-20] MEDS ORDERED: LIDOCAINE 2% VISCOUS 15 ML UDC PO NR (11:30)
[2021-11-21 05:30] LABS: EOSINOPHILS # (AUTO) 0.1 10^3/uL (0.0-0.3); EOSINOPHILS % (AUTO) 1 % (0-10); MEAN CORPUSCULAR HEMOGLOBIN 31 pg (25-34)
[2021-11-21 05:32] LABS: BASOPHILS % (AUTO) 1 % (0-10); HEMATOCRIT 26 % (40-54); HEMOGLOBIN 8.6 g/dL (13.3-17.7); LYMPHOCYTES # (AUTO) 1.2 10^3/uL (1.0-4.0); LYMPHOCYTES % (AUTO) 20 % (12-44); MEAN CORPUSCULAR HGB CONC 34 g/dL (32-36); MEAN CORPUSCULAR VOLUME 93 fL (80-99); MEAN PLATELET VOLUME 10.9 fL (9.0-12.2); MONOCYTES # (AUTO) 0.9 10^3/uL (0.0-1.0); MONOCYTES % (AUTO) 14 % (0-12); NEUTROPHILS # (AUTO) 3.9 10^3/uL (1.8-7.8); NEUTROPHILS % (AUTO) 64 % (42-75); PLATELET COUNT 97 10^3/uL (130-400); WHITE BLOOD COUNT 6.2 10^3/uL (4.3-11.0)
[2021-11-21 05:41] LABS: ALBUMIN 3.3 GM/DL (3.2-4.5); POTASSIUM 3.7 MMOL/L (3.6-5.0)
[2021-11-21 05:43] LABS: TOTAL PROTEIN 6.5 GM/DL (6.4-8.2)
[2021-11-21 05:45] LABS: BILIRUBIN,TOTAL 0.8 MG/DL (0.1-1.0)
[2021-11-21 05:47] LABS: CREATININE SERUM 0.83 MG/DL (0.60-1.30); PHOSPHORUS 1.8 MG/DL (2.3-4.7)
[2021-11-21 05:50] LABS: MAGNESIUM 1.7 MG/DL (1.6-2.4)
[2021-11-21] MEDS: MULTIVIT W/MINERALS TAB (THERAGRAN M) PO SCH (06:00)
[2021-11-21] MEDS: CATHETER FLUSH 10 ML SYR IVP SCH (06:01)
[2021-11-21] MEDS: APIXABAN 5 MG (ELIQUIS) TABLET PO SCH (08:42)
[2021-11-21] MEDS: meTOprolol TARTRATE 25 MG (LOPRESSOR) TABLET PO SCH ×2 (08:42→12:47)
[2021-11-21] MEDS: FOLIC ACID 1 MG TAB PO SCH (08:42)
--- NOTE | 2021-11-21 09:51 | Cardiology Progress Note ---
Subjective Date Seen by Provider: Nov 21, 2021 Time Seen by Provider: 09:50 Subjective/Events-last exam Patient was seen at bedside, sitting comfortably Heart rate is better controlled No new complaint Review of Systems General: No Chills, No Night Sweats, No Fatigue, No Malaise, No Appetite, No Other HEENT: No Head Aches, No Visual Changes, No Eye Pain, No Ear Pain, No Dysphasia, No Sinus Congestion, No Post Nasal Drip, No Sore Throat, No Other Pulmonary: No Dyspnea, No Cough, No Pleuritic Chest Pain, No Other Cardiovascular: No: Chest Pain, Palpitations, Orthopnea, Paroxysmal Noc. Dyspnea, Edema, Lt Headedness, Other Objective-Cardiology Exam Last Set of Vital Signs Vital Signs 11/19/21 11/20/21 11/20/21 11/21/21 20:27 10:30 19:27 08:00 Pulse 99 Resp 16 B/P (MAP) 121/89 (100) Pulse Ox 95 O2 Delivery Room Air O2 Flow Rate 2.00 FiO2 21 I&O Intake and Output 11/21/21 00:00 Intake Total 1345 ml Output Total 1675 ml Balance -330 ml Intake Oral 545 ml IV Total 800 ml Output Urine Total 1675 ml # Voids 1 # Bowel Movements 1 General: Alert, Oriented X3, Cooperative HEENT: Atraumatic, PERRLA Neck: Supple, No JVD, No Thyromegaly Lungs: Clear to Auscultation, Normal Air Movement Heart: Normal S1, Normal S2, No Murmurs, Other (Atrial fibrillation, tachycardia) Abdomen: Normal Bowel Sounds, Soft, No Tenderness, No Hepatosplenomegaly, No Masses Extremities: No Clubbing, No Cyanosis, No Edema, Normal Pulses, No Tenderness/Swelling Skin: No Rashes, No Breakdown, No Significant Lesion Neuro: Normal Gait, Normal Speech, Strength at 5/5 X4 Ext, Normal Tone, Sensation Intact Psych/Mental Status: Mental Status NL, Mood NL Results Lab Laboratory Tests 11/21/21 04:50 A/P-Cardiology Admission Diagnosis Atrial fibrillation Tachycardia Alcoholism Noncompliant with medication Assessment/Plan Paroxysmal atrial fibrillation Status post MOOKIE showing questionable thrombus in the left atrial appendage Rate is controlled on Cardizem, I will switch to Cardizem CD 240 daily Continue on Eliquis Palpitation, tachycardia secondary to atrial fibrillation Stress test done in December 2020 showing no significant ischemia or infarction with ejection fraction 60% 2D echo was done in August 2020 showing normal LV size and function with ejection fraction normal, PA pressure 30 to 35 mmHg. I will repeat 2D echo Chest pain, secondary to multiple ribs injury. Multiple falling, increased risk of bleeding. Alcoholism, alcoholic encephalopathy. Recommend withdrawal precaution. Hyponatremia, elevated liver enzymes. Managed by medical team History of noncompliance with medication, educated on compliance Okay for discharge and arrange for follow-up as an outpatient MESFIN DANIELLE MD Nov 21, 2021 09:51
[2021-11-21] MEDS ORDERED: DILT240C91 PO (10:51)
[2021-11-21] MEDS ORDERED: METO-352 PO (10:52)
--- NOTE | 2021-11-21 11:51 | Physical Therapy Evaluation ---
PT Evaluation-General Medical Diagnosis Admission Date Nov 17, 2021 at 23:43 Medical Diagnosis: a-fib with RVR/hyponatremia Onset Date: Nov 17, 2021 Therapy Diagnosis Therapy Diagnosis: debility Height/Weight Height (Feet): 6 Height (Inches): 1.00 Weight (Pounds): 198 Weight (Ounces): 0.0 Precautions Precautions/Isolations: Seizure, Standard Precautions Referral Physician: Aleksandar Reason for Referral: Evaluation/Treatment Medical History Pertinent Medical History: Atrial Fib, Alcoholism, Heart Failure, Smoking Current History EMS secondary to fall Reviewed History: Yes Social History Home: Apartment Current Living Status: Friend Entry Into Home: Ramp, Stairs With Railing (3) Prior Prior Level of Function SCALE: Activities may be completed with or without assistive devices. 3-Gzrwmlmmyz-sonrrma completes the activity by him/herself with no assistance from a helper. 5-Set-up or Clean-up Assistance-helper sets up or cleans up; patient completes activity. [place] assists only prior to or following the activity. 4-Supervision or Touching Assistance-helper provides verbal cues and/or touching/steadying and/or contact guard assistance as patient completes activity. Assistance may be provided throughout the activity or intermittently. 3-Partial/Moderate Assistance-helper does LESS THAN HALF the effort. [place] lifts, holds or supports trunk or limbs, but provides less than half the effort. 2-Substantial/Maximal Assistance-helper does MORE THAN HALF the effort. [place] lifts or holds trunk or limbs and provides more than half the effort. 3-Sppdlmozq-vvwdok does ALL the effort. Patient does none of the effort to complete the activity. Or, the assistance of 2 or more helpers is required for the patient to complete the activity. If activity was not attempted, code reason: 7-Patient Refused. 9-Not Applicable-not attempted and the patient did not perform the activity before the current illness, exacerbation or injury. 10-Not Attempted due to Environmental Limitations-(lack of equipment, weather restraints, etc.). 88-Not Attempted due to Medical Conditions or Safety Concerns. Bed Mobility: 6 Transfers (B,C,W/C): 6 Gait: 6 Stairs: 6 Indoor Mobility (Ambulation): Independent Stairs: Independent Prior Devices Use: None PT Evaluation-Current Subjective Patient agrees to PT. Objective Patient Orientation: Normal For Age ROM/Strength ROM Lower Extremities bilateral LE WFL Strength Lower Extremities 5/5 grossly bilateral LE all planes Integumentary/Posture Bowel Incontinence: No Bladder Incontinence: No Posture WFL Neuromuscular (Tone, Coordination, Reflexes) grossly intact Sensory Vision: Functional Hearing: Functional Transfers Sit to Stand (QC): 6 Gait Mode of Locomotion: Walk Anticipated Mode of Locomotion: Walk Walk 10 feet (QC): 6 Walk 50 ft with 2 Turns(QC): 6 Walk 150 ft (QC): 6 Distance: 500' Gait Assistive Device: None Comments/Gait Description WBOS/functional gait sequence Balance Sitting Static: Normal Sitting Dynamic: Normal Standing Static: Normal Standing Dynamic: Normal Picking up an Object (QC): 6 Assessment/Needs Patient is currently at independent [facility] with all gross motor skills safely and does not require skilled PT intervention or AD. Rehab Potential: Fair PT Plan Treatment/Plan Treatment Plan: Discontinue PT, goals met Treatment Duration: Nov 21, 2021 Frequency: 1 time per week Estimated Hrs Per Day: .25 hour per day Patient and/or Family Agrees t: Yes Time/GCodes Time In: 1035 Time Out: 1045 Total Billed Treatment Time: 10 Total Billed Treatment 1 visit EVLowC 10 min NYA MAN PT Nov 21, 2021 11:51
--- NOTE | 2021-11-21 13:15 | Discharge Summary ---
Discharge Summary Hospital Course Hospital Course Date of Admission: Nov 17, 2021 at 23:43 Admission Diagnosis : Multiple Falls History Alcohol Abuse Disorder Polysubstance Abuse Disorder Hyponatremia Atrial Fibrillation with RVR Congestive Heart Failure History of HTN Family Physician/Provider: Charlotte/[facility]Counts Include [facility] Date of Discharge: 11/21/21 Discharge Diagnosis: Multiple Falls History Alcohol Abuse Disorder Polysubstance Abuse Disorder Hyponatremia Atrial Fibrillation Left atrial thrombus Congestive Heart Failure History of HTN Hospital Course: Paroxysmal atrial fibrillation, started on cardizem drip and transitioned to oral cardizem, MOOKIE done which showed possible thrombus in left atrial appendage, so cardioversion was not done, discharged on Eliquis and Cardizem. Declined any resources for alcohol use. Labs and Pending Lab Test: Laboratory Tests 11/21/21 04:50: White Blood Count 6.2, Red Blood Count 2.76L, Hemoglobin 8.6L, Hematocrit 26L, Mean Corpuscular Volume 93, Mean Corpuscular Hemoglobin 31, Mean Corpuscular Hemoglobin Concent 34, Red Cell Distribution Width 14.2, Platelet Count 97L, Mean Platelet Volume 10.9, Immature Granulocyte % (Auto) 1, Neutrophils (%) (Auto) 64, Lymphocytes (%) (Auto) 20, Monocytes (%) (Auto) 14H, Eosinophils (%) (Auto) 1, Basophils (%) (Auto) 1, Neutrophils # (Auto) 3.9, Lymphocytes # (Auto) 1.2, Monocytes # (Auto) 0.9, Eosinophils # (Auto) 0.1, Basophils # (Auto) 0.0, Immature Granulocyte # (Auto) 0.0, Percent Immature Platelet Fraction 6.8, Sodium Level 130L, Potassium Level 3.7, Chloride Level 97L, Carbon Dioxide Level 22, Anion Gap 11, Blood Urea Nitrogen 13, Creatinine 0.83, Estimat Glomerular Filtration Rate 104, BUN/Creatinine Ratio 16, Glucose Level 116H, Calcium Level 9.0, Corrected Calcium 9.6, Phosphorus Level 1.8L, Magnesium Level 1.7, Total Bilirubin 0.8, Aspartate Amino Transf (AST/SGOT) 83H, Alanine Aminotransferase (ALT/SGPT) 63H, Alkaline Phosphatase 134, Total Protein 6.5, Albumin 3.3 Microbiology 11/18/21 MRSA Screen - Final, Complete MRSA not isolated Home Meds Active Toprol Xl (Metoprolol Succinate) 50 Mg Tab.er.24h 50 Mg PO DAILY Diltiazem 24Hr ER (Diltiazem HCl) 240 Mg Cap.er.24h 240 Mg PO DAILY Reported Centrum Silver Tablet (Multivit-Min/FA/Lycopene/Lut) 0.4 Mg-300 Mcg-250 Mcg Tablet 1 Each PO DAILY Eliquis (Apixaban) 5 Mg Tablet 5 Mg PO BID Assessment/Pt DC Instructions Follow up with Cardiology as directed, follow upw ith primary provider within a week of discharge. Discharge Diet: Cardiac Diet Activity as Tolerated: Yes Discharge Physical Examination Allergies: Coded Allergies: NKANo Known Allergies (Unverified Allergy, Mild, 04/20/09) General Appearance: No Apparent Distress Respiratory: Lungs Clear, Normal Breath Sounds Cardiovascular: Regular Rate, Rhythm, No Murmur Gastrointestinal: Normal Bowel Sounds, Non Tender, Soft Extremity: No Pedal Edema Skin: Warm/Dry Neurologic/Psychiatric: Alert, Normal Mood/Affect FROYLAN CALDERA MD Nov 21, 2021 13:15
== END 2021-11-21 12:55 | disposition home or self-care (01) | DRG 309 ==
LOC: EDUNIT# 22:53 → ER 22:58 → EDLOC 23:43 → ICU 23:43
PROVIDERS: ADMIT Internal Medicine; ATTEND Family Medicine
DX: I48.0 Paroxysmal atrial fibrillation (principal); E87.1 Hypo-osmolality and hyponatremia; S22.32XA Fracture of one rib, left side, initial encounter for closed fracture; F10.239 Alcohol dependence with withdrawal, unspecified; E87.6 Hypokalemia; I11.0 Hypertensive heart disease with heart failure; I50.9 Heart failure, unspecified; K74.60 Unspecified cirrhosis of liver; Z72.89 Other problems related to lifestyle; Z79.01 Long term (current) use of anticoagulants; F15.90 Other stimulant use, unspecified, uncomplicated; F12.90 Cannabis use, unspecified, uncomplicated; N40.0 Benign prostatic hyperplasia without lower urinary tract symptoms; E78.00 Pure hypercholesterolemia, unspecified; F41.9 Anxiety disorder, unspecified; F17.210 Nicotine dependence, cigarettes, uncomplicated; F19.10 Other psychoactive substance abuse, uncomplicated; F10.229 Alcohol dependence with intoxication, unspecified; D69.6 Thrombocytopenia, unspecified; D64.9 Anemia, unspecified; I51.3 Intracardiac thrombosis, not elsewhere classified; G31.2 Degeneration of nervous system due to alcohol; Z91.14 Patient's other noncompliance with medication regimen; W18.30XA Fall on same level, unspecified, initial encounter
CPT/HCPCS: 36415; 70450; 71045; 71250; 80053; 80320; 83735; 83880; 84100; 84484; 85025; 85027; 85610; 85730; 87081; 93005; 93306; 93312; 93320; 93325; 94640

== ENCOUNTER → 2022-05-11 | Outpatient (CLI) | payer OTHER ==
[~2022-05-11] MED LIST changes: +ALBU8.5H6 IH; +DILT240C91 PO; +LOSA1TAB20 PO; +LOSA25TA41 PO; +METO-352 PO; +METO50TA7 PO; +MULT-1029 PO; -RT-ALBUINH IH
--- NOTE | 2022-05-11 12:42 | Diagnostic Imaging Report ---
INDICATION: DDU. History of CHF. COMPARISON: 11/20/2021. FINDINGS: Frontal and lateral views of the chest demonstrate normal heart size and pulmonary vascularity. The lungs are clear. There are no signs of infiltrate, pleural effusions or pneumothoraces. The visualized osseous structures show no acute abnormalities. IMPRESSION: 1. No acute process. No signs of infiltrates, effusions or pneumothoraces. Dictated by: Dictated on workstation # [id number]
== END ==
LOC: RAD 10:55
PROVIDERS: ATTEND Family Medicine
DX: I50.9 Heart failure, unspecified (principal)
CPT/HCPCS: 71046